=== PATIENT | male | born 1935 | race Caucasian/White ===

== ENCOUNTER → 2016-08-12 | Outpatient (REF) | payer MEDICARE, OTHER ==
[~2016-08-12] MED LIST: /ATOR40TA OR; ACET500C PO; ACET65TA OR; ASPI81TA45 PO; ASPI81TA83 OR; ASPI81TAEC PO; ATOR40TA75 PO; BISA10SU2 RE; CLOB-24 EX; COLA100C2 OR; DICL500C OR; DOXY-278 PO; DOXY100C PO; FLUT1SPR2; FURO40TA2 OR; LASI40TA PO; LEVA750T7 PO; LIPI20TA PO; LIPI80TA PO; LISI2.5T OR; LISI2.5T PO; MAALSUS OR; MAALSUS PO; MAGN500T2 PO; MILKSUS OR; MOME50SP; MULTIVIT OR; MULTIVIT PO; Magnesium Oxide OR; NASONEX; PLAV1TAB2 PO; PLAV75TA2 OR; PLAV75TA2 PO; PROT1TAB2 PO; SLOWTAB2 PO; TOPR50TA OR; TOPR50TA PO; TUMS500C PO; TYLE650T35 PO; VITMTA PO; ZYRT1TAB PO; [UNRECOGNIZED DRUG - CODE] EX; [UNRECOGNIZED DRUG - CODE] TOP
[2016-08-12 18:36] LABS: ALBUMIN 3.3 GM/DL (3.2-5.2); ALBUMIN/GLOBULIN RATIO 1.06 (1.00-1.93); BILIRUBIN,TOTAL 0.5 MG/DL (0.2-1.0); CALCIUM LEVEL 8.2 MG/DL (8.8-10.2); CREATININE FOR GFR 1.26 MG/DL (0.70-1.30); GLOMERULAR FILTRATION RATE 58.5 (>35); MAGNESIUM LEVEL 2.1 MG/DL (1.8-2.4); POTASSIUM SERUM 4.3 MEQ/L (3.5-5.1); TOTAL PROTEIN 6.4 GM/DL (6.4-8.2)
== END ==
LOC: M SFHCPLAZ 08-11 15:26 → M SFHCCLAY 13:00
PROVIDERS: ATTEND Internal Medicine
DX: N18.3 Chronic kidney disease, stage 3 (moderate) (principal); E78.00 Pure hypercholesterolemia, unspecified
CPT/HCPCS: 80053; 80061; 83735; G0463

== ENCOUNTER → 2017-01-21 | Outpatient (CLI) | payer MEDICARE, OTHER ==
[2017-01-21 14:02] LABS: BASO # 0.1 10^3/uL (0.0-0.2); BASO % 0.9 % (0.0-1.0); EOS # 0.2 10^3/uL (0.0-0.50); EOS % 3.9 % (0.0-3.0); IMMATURE GRANULOCYTE % 0.2 % (0-0); LYMPH # 0.8 10^3/uL (1.5-4.5); LYMPH % 13.6 % (24.0-44.0); MEAN CORPUSCULAR HEMOGLOBIN 28.3 pg (27.0-33.0); MEAN CORPUSCULAR HGB CONC 31.5 g/dl (32.0-36.5); MEAN CORPUSCULAR VOLUME 89.9 fl (80.0-96.0); MONO # 0.7 10^3/uL (0.0-0.8); MONO % 12.5 % (0.0-5.0); NEUTROPHILS % 68.9 % (36.0-66.0); PLATELET COUNT, AUTOMATED 194 10^3/uL (150-450); RED CELL DISTRIBUTION WIDTH 15.2 % (11.5-14.5); WHITE BLOOD COUNT 5.8 10^3/uL (4.0-10.0)
[2017-01-21 14:25] LABS: ALBUMIN 3.4 GM/DL (3.2-5.2); ALKALINE PHOSPHATASE 199 U/L (45-117); ALT/SGPT 22 U/L (12-78); ANION GAP 5 MEQ/L (8-16); AST/SGOT 14 U/L (7-37); BILIRUBIN,TOTAL 0.6 MG/DL (0.2-1.0); BLOOD UREA NITROGEN 18 MG/DL (7-18); CALCIUM LEVEL 8.7 MG/DL (8.8-10.2); CARBON DIOXIDE LEVEL 32 MEQ/L (21-32); CHLORIDE LEVEL 105 MEQ/L (98-107); CREATININE FOR GFR 1.22 MG/DL (0.70-1.30); GLOMERULAR FILTRATION RATE > 60.0 (>35); GLUCOSE, FASTING 84 MG/DL (83-110); POTASSIUM SERUM 4.4 MEQ/L (3.5-5.1); SODIUM LEVEL 142 MEQ/L (136-145); TOTAL PROTEIN 6.8 GM/DL (6.4-8.2)
== END ==
LOC: M LAB 13:16
PROVIDERS: ATTEND Surgery Vascular Surgery
DX: I71.4 Abdominal aortic aneurysm, without rupture (principal)

== ENCOUNTER → 2017-02-04 | Outpatient (REF) | payer MEDICARE, OTHER | LOC: M SFHCPLAZ 07:22 → M LABDRAWC 07:25 | PROVIDERS: ATTEND Nurse Practitioner Adult Health | DX: R21 Rash and other nonspecific skin eruption (principal) ==

== ENCOUNTER → 2017-03-30 | Outpatient (REF) | payer MEDICARE, OTHER ==
[2017-03-30 17:17] LABS: BLOOD UREA NITROGEN 25 MG/DL (7-18)
[2017-03-30 17:17] LABS: CREATININE FOR GFR 1.54 MG/DL (0.70-1.30); GLOMERULAR FILTRATION RATE 46.3 (>35)
== END ==
LOC: M LABDRAWC 11:48
DX: I71.4 Abdominal aortic aneurysm, without rupture (principal)
CPT/HCPCS: 82565

== ENCOUNTER → 2017-04-01 | Outpatient (CLI) | payer MEDICARE, OTHER ==
[~2017-04-01] MED LIST changes: -/ATOR40TA OR; -ACET500C PO; -ACET65TA OR; -ASPI81TA45 PO; -ASPI81TA83 OR; -ASPI81TAEC PO; -ATOR40TA75 PO; -BISA10SU2 RE; -CLOB-24 EX; -COLA100C2 OR; -DICL500C OR; -DOXY-278 PO; -DOXY100C PO; -FLUT1SPR2; -FURO40TA2 OR; +ISOVUE-370 76% 100ML VIAL (Q9967) As Ordered; -LASI40TA PO; -LEVA750T7 PO; -LIPI20TA PO; -LIPI80TA PO; -LISI2.5T OR; -LISI2.5T PO; -MAALSUS OR; -MAALSUS PO; -MAGN500T2 PO; -MILKSUS OR; -MOME50SP; -MULTIVIT OR; -MULTIVIT PO; -Magnesium Oxide OR; -NASONEX; -PLAV1TAB2 PO; -PLAV75TA2 OR; -PLAV75TA2 PO; -PROT1TAB2 PO; -SLOWTAB2 PO; -TOPR50TA OR; -TOPR50TA PO; -TUMS500C PO; -TYLE650T35 PO; -VITMTA PO; -ZYRT1TAB PO; -[UNRECOGNIZED DRUG - CODE] EX; -[UNRECOGNIZED DRUG - CODE] TOP
== END ==
LOC: M RAD 11:04
DX: I72.4 Aneurysm of artery of lower extremity (principal)
CPT/HCPCS: Q9967

== ENCOUNTER → 2017-04-15 | Outpatient (CLI) | payer MEDICARE, OTHER ==
[2017-04-15 10:39] LABS: BASO % 0.8 % (0.0-1.0); EOS # 0.1 10^3/uL (0.0-0.50); EOS % 2.5 % (0.0-3.0); HEMATOCRIT 37.6 % (42.0-52.0); HEMOGLOBIN 12.2 g/dl (14.0-18.0); IMMATURE GRANULOCYTE % 0.2 % (0-3.0); LYMPH # 0.9 10^3/uL (1.5-4.5); MEAN CORPUSCULAR HEMOGLOBIN 29.2 pg (27.0-33.0); MEAN CORPUSCULAR HGB CONC 32.4 g/dl (32.0-36.5); MONO # 0.6 10^3/uL (0.0-0.8); NEUTROPHILS # 3.2 10^3/uL (1.8-7.7); NEUTROPHILS % 65.5 % (36.0-66.0); PLATELET COUNT, AUTOMATED 150 10^3/uL (150-450); RED BLOOD COUNT 4.18 10^6/uL (4.30-6.10); RED CELL DISTRIBUTION WIDTH 15.9 % (11.5-14.5); WHITE BLOOD COUNT 4.8 10^3/uL (4.0-10.0)
[2017-04-15 11:08] LABS: ANION GAP 5 MEQ/L (8-16); BLOOD UREA NITROGEN 21 MG/DL (7-18); CALCIUM LEVEL 8.4 MG/DL (8.8-10.2); CARBON DIOXIDE LEVEL 31 MEQ/L (21-32); CHLORIDE LEVEL 107 MEQ/L (98-107); CREATININE FOR GFR 1.41 MG/DL (0.70-1.30); GLOMERULAR FILTRATION RATE 51.2 (>35); GLUCOSE, FASTING 92 MG/DL (70-100); POTASSIUM SERUM 4.4 MEQ/L (3.5-5.1); SODIUM LEVEL 143 MEQ/L (136-145)
== END ==
LOC: M LAB 09:59
DX: I71.4 Abdominal aortic aneurysm, without rupture (principal)
CPT/HCPCS: 80048

== ENCOUNTER → 2017-11-03 | Outpatient (REF) | payer MEDICARE, OTHER ==
[2017-11-03 18:01] LABS: ALBUMIN 3.8 GM/DL (3.2-5.2); ALKALINE PHOSPHATASE 182 U/L (45-117); ALT/SGPT 26 U/L (12-78); ANION GAP 7 MEQ/L (8-16); AST/SGOT 20 U/L (7-37); BILIRUBIN,TOTAL 0.4 MG/DL (0.2-1.0); BLOOD UREA NITROGEN 24 MG/DL (7-18); CALCIUM LEVEL 8.6 MG/DL (8.8-10.2); CARBON DIOXIDE LEVEL 30 MEQ/L (21-32); CHLORIDE LEVEL 107 MEQ/L (98-107); CHOLESTEROL LEVEL 157 MG/DL (<200); CHOLESTEROL RISK RATIO 4.025 (<5); CREATININE FOR GFR 1.49 MG/DL (0.70-1.30); GLOMERULAR FILTRATION RATE 47.9 (>35); GLUCOSE, FASTING 66 MG/DL (70-100); HDL CHOLESTEROL 39 MG/DL (>40); LDL CHOLESTEROL 93 MG/DL (<100); MAGNESIUM LEVEL 2.2 MG/DL (1.8-2.4); NON-HDL-C 118 MG/DL; POTASSIUM SERUM 4.6 MEQ/L (3.5-5.1); SODIUM LEVEL 144 MEQ/L (136-145); TOTAL PROTEIN 7.4 GM/DL (6.4-8.2); TRIGLYCERIDES LEVEL 125 MG/DL (<150)
[2017-11-03 20:01] LABS: ALBUMIN/GLOBULIN RATIO 1.06 (1.00-1.93)
== END ==
LOC: M SFHCPLAZ 12:26
DX: N18.3 Chronic kidney disease, stage 3 (moderate) (principal); I25.10 Atherosclerotic heart disease of native coronary artery without angina pectoris
CPT/HCPCS: 83735

== ENCOUNTER → 2018-04-30 | Outpatient (REF) | payer MEDICARE, OTHER ==
[~2018-04-30] MED LIST changes: +/ATOR40TA OR; +ACET500C PO; +ACET65TA OR; +ASPI81TA45 PO; +ASPI81TA83 OR; +ASPI81TAEC PO; +ATOR40TA75 PO; +BISA10SU2 RE; +CLOB-24 EX; +COLA100C2 OR; +DICL500C OR; +DOXY-350 PO; +DOXY100C PO; +FLUT1SPR2; +FURO40TA2 OR; -ISOVUE-370 76% 100ML VIAL (Q9967) As Ordered; +LASI40TA PO; +LASI40TA9 PO; +LEVA750T7 PO; +LIPI20TA PO; +LIPI80TA PO; +LISI2.5T OR; +LISI2.5T PO; +MAALSUS OR; +MAALSUS PO; +MAGN500T2 PO; +MILKSUS OR; +MOME50SP; +MULTIVIT OR; +MULTIVIT PO; +Magnesium Oxide OR; +NASONEX; +PLAV1TAB2 PO; +PLAV75TA2 OR; +PLAV75TA2 PO; +PROT1TAB2 PO; +SLOWTAB2 PO; +TOPR50TA OR; +TOPR50TA PO; +TUMS500C PO; +TYLE650T35 PO; +VITMTA PO; +ZYRT1TAB PO; +[UNRECOGNIZED DRUG - CODE] EX; +[UNRECOGNIZED DRUG - CODE] TOP
[2018-04-30 17:02] LABS: ALBUMIN 3.7 GM/DL (3.2-5.2); BILIRUBIN,TOTAL 0.8 MG/DL (0.2-1.0); CALCIUM LEVEL 8.6 MG/DL (8.8-10.2); CREATININE FOR GFR 1.57 MG/DL (0.70-1.30); GLOMERULAR FILTRATION RATE 45.1 (>35)
[2018-04-30 17:13] LABS: HEMOGLOBIN A1c 5.9 %; TOTAL 25(OH) VITAMIN D 30.7 NG/ML (30.0-100.0)
== END ==
LOC: M SFHCCLAY 11:41
PROVIDERS: ATTEND Internal Medicine
DX: N18.3 Chronic kidney disease, stage 3 (moderate) (principal); R73.01 Impaired fasting glucose

== ENCOUNTER → 2018-07-02 | Outpatient (REF) | payer MEDICARE, OTHER ==
[~2018-07-02] MED LIST changes: -/ATOR40TA OR; +CICL1SHA2 TOP; +LIPI1TAB2 OR; +METO-743 OR; +METO-743 PO; -TOPR50TA OR; -TOPR50TA PO; -[UNRECOGNIZED DRUG - CODE] TOP
[2018-07-02 17:10] LABS: BASO % 0.7 % (0.0-1.0); EOS # 0.3 10^3/uL (0.0-0.50); EOS % 4.2 % (0.0-3.0); HEMATOCRIT 42.8 % (42.0-52.0); HEMOGLOBIN 13.1 g/dl (13.5-17.5); LYMPH % 17.3 % (24.0-44.0); MEAN CORPUSCULAR HEMOGLOBIN 28.9 pg (27.0-33.0); MEAN CORPUSCULAR HGB CONC 30.6 g/dl (32.0-36.5); MEAN CORPUSCULAR VOLUME 94.5 fl (80.0-96.0); MONO # 0.7 10^3/uL (0.0-0.8); MONO % 12.1 % (0.0-5.0); NEUTROPHILS # 3.9 10^3/uL (1.8-7.7); NEUTROPHILS % 65.4 % (36.0-66.0); PLATELET COUNT, AUTOMATED 168 10^3/uL (150-450); RED BLOOD COUNT 4.53 10^6/uL (4.30-6.10)
== END ==
LOC: M LABDRAWC 16:23
PROVIDERS: ATTEND Internal Medicine Cardiovascular Disease
DX: I48.2 Chronic atrial fibrillation (principal)

== ENCOUNTER → 2018-07-07 | Outpatient (REF) | payer MEDICARE, OTHER | LOC: M LAB REF 11:29 | PROVIDERS: ATTEND Internal Medicine Cardiovascular Disease | DX: I48.2 Chronic atrial fibrillation (principal) ==

== ENCOUNTER → 2018-11-08 | Outpatient (REF) | payer MEDICARE, OTHER ==
[2018-11-08 13:27] LABS: ALBUMIN 3.6 GM/DL (3.2-5.2); CALCIUM LEVEL 8.7 MG/DL (8.8-10.2); CHOLESTEROL RISK RATIO 4.361 (<5); CREATININE FOR GFR 1.59 MG/DL (0.70-1.30); GLOMERULAR FILTRATION RATE 44.4 (>35); POTASSIUM SERUM 4.1 MEQ/L (3.5-5.1); PTH INTACT 140.8 PG/ML (18.5-88.0); THYROID STIMULATING HORMONE 2.93 uIU/ML (0.358-3.740); TOTAL PROTEIN 6.7 GM/DL (6.4-8.2)
== END ==
LOC: M SFHCPLAZ 10:56
PROVIDERS: ATTEND Internal Medicine
DX: N18.3 Chronic kidney disease, stage 3 (moderate) (principal); E78.00 Pure hypercholesterolemia, unspecified; G47.30 Sleep apnea, unspecified
CPT/HCPCS: 36415; 80053; 80061; 83970; 84443; G0463

== ENCOUNTER 2018-12-19 06:31 | Inpatient (IN) | payer MEDICARE, OTHER ==
[~2018-12-19] VITALS: Ht 182.9 cm; Wt 122.2 kg
[2018-12-19 07:11] LABS: BASO % 0.3 % (0.0-1.0); EOS # 0.1 10^3/uL (0.0-0.5); EOS % 0.7 % (0.0-3.0); HEMATOCRIT 41.7 % (42.0-52.0); HEMOGLOBIN 13.5 g/dl (13.5-17.5); LYMPH # 0.6 10^3/uL (1.5-5.0); LYMPH % 4.4 % (24.0-44.0); MEAN CORPUSCULAR HEMOGLOBIN 30.5 pg (27.0-33.0); MEAN CORPUSCULAR HGB CONC 32.4 g/dl (32.0-36.5); MEAN CORPUSCULAR VOLUME 94.1 fl (80.0-96.0); MONO # 0.9 10^3/uL (0.0-0.8); MONO % 6.9 % (0.0-5.0); NEUTROPHILS # 11.7 10^3/uL (1.5-8.5); NEUTROPHILS % 87.3 % (36.0-66.0); PLATELET COUNT, AUTOMATED 179 10^3/uL (150-450); RED BLOOD COUNT 4.43 10^6/uL (4.30-6.10); WHITE BLOOD COUNT 13.4 10^3/uL (4.0-10.0)
[2018-12-19] MEDS ORDERED: ELIQ2.5T PO (07:14)
[2018-12-19] MEDS ORDERED: SM LTAB5 PO (07:14)
[2018-12-19 07:32] LABS: VENOUS BASE EXCESS 1.3 (-2.0-2.0); VENOUS HCO3 26.7 MEQ/L (23.0-27.0); VENOUS O2 SATURATION 59.8 % (60.0-80.0); VENOUS PARTIAL PRESSURE O2 31.9 mmHg (30.0-50.0); VENOUS PH 7.391 UNITS (7.330-7.430); VENOUS STANDARD HCO3 24.8 MEQ/L; VENOUS TOTAL CO2 28.1 MEQ/L (24.0-28.0)
[2018-12-19] MEDS: NS 1,000 ML IV SCH ×2 (07:35→21:25)
[2018-12-19 07:42] LABS: ALBUMIN 3.5 GM/DL (3.2-5.2); BILIRUBIN,DIRECT 0.2 MG/DL (0.0-0.2); BILIRUBIN,TOTAL 1.2 MG/DL (0.2-1.0); CALCIUM LEVEL 9.1 MG/DL (8.8-10.2); CK-MB VALUE MASS 1.1 NG/ML (<3.6); CREATININE FOR GFR 1.65 MG/DL (0.70-1.30); GLOMERULAR FILTRATION RATE 42.5 (>35); MB/CK RELATIVE INDEX 1.31 (< OR =4); POTASSIUM SERUM 4.5 MEQ/L (3.5-5.1); THYROID STIMULATING HORMONE 2.12 uIU/ML (0.358-3.740); TOTAL PROTEIN 7.8 GM/DL (6.4-8.2); TROPONIN I 0.03 NG/ML (< 0.10)
--- NOTE | 2018-12-19 07:51 | REPVR ---
PROCEDURE INFORMATION: Exam: CT Head Without Contrast Exam date and time: 12/19/2018 7:27 AM Clinical history: 83 years old, male; Altered mental status/memory loss; Confusion or disorientation TECHNIQUE: Imaging protocol: Computed tomography of the head without contrast. Radiation optimization: All CT scans at this facility use at least one of these dose optimization techniques: automated exposure control; mA and/or kV adjustment per patient size (includes targeted exams where dose is matched to clinical indication); or iterative reconstruction. 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 There is low attenuation abnormality in the periventricular white matter, likely reflecting chronic microvascular ischemic disease. Ventricles: Normal. No ventriculomegaly. Bones/joints: Unremarkable. No acute fracture. Sinuses: There is mild sinus disease. Mastoid air cells: Visualized mastoid air cells are well aerated. Soft tissues: Unremarkable. Vasculature: There is moderate intracranial vascular calcification. IMPRESSION: 1. 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 2. There is low attenuation abnormality in the periventricular white matter, likely reflecting chronic microvascular ischemic disease. If an acute infarct is clinically suspected, consider MRI with diffusion imaging. Electronically signed by: Missael Edgar On 12/19/2018 07:50:41 AM
[2018-12-19] MEDS ORDERED: ACETAMINOPHEN 325 MG TAB PO ONE (08:00)
[2018-12-19] MEDS ORDERED: PIPERACILLIN/TAZOBACTAM SOD 4.5 GM in D5W MINI-BAG PLUS 50 ML IV ONE (08:00)
[2018-12-19] MEDS ORDERED: LORA10TA3 PO (08:55)
[2018-12-19] MEDS ORDERED: KEYT1INJ IV (08:55)
[2018-12-19] MEDS ORDERED: FLUTISP NARES (08:55)
[2018-12-19] MEDS ORDERED: BANO25TA PO (08:55)
[2018-12-19] MEDS ORDERED: CALC1CAP31 PO (08:55)
[2018-12-19] MEDS ORDERED: COLA1TAB PO (08:55)
[2018-12-19] MEDS: CALCITRIOL 0.25 MCG CAP (S0169) PO SCH (09:00)
[2018-12-19] MEDS: LORATADINE 10 MG TAB PO SCH (09:00)
[2018-12-19] MEDS: APIXABAN 2.5 MG TAB (ELIQUIS) PO SCH ×2 (09:00→21:25)
[2018-12-19] MEDS: MULTIVITAMINS/MINERALS THERAP 1 TAB PO SCH (09:00)
[2018-12-19] MEDS: PANTOPRAZOLE 40MG TAB (PROTONIX) PO SCH (09:00)
--- NOTE | 2018-12-19 09:46 | REP ---
CHEST, PORTABLE: AP portable view of the chest is performed. COMPARISON: 01/30/2016 Heart is upper limits of normal in size. There is mild elevation of the right hemidiaphragm again noted. No infiltrate is seen bilaterally. There is tortuosity of the thoracic aorta again seen. Multiple sternal wires and mediastinal clips are present. There is a right central venous catheter with the tip at the junction of the superior vena cava and right atrium. Left dual-lead pacemaker is again noted. IMPRESSION: No acute infiltrate. Electronically Signed by Rajesh Grimm MD 12/19/2018 12:27 P
[2018-12-19] MEDS ORDERED: NS IV ONE (10:00)
[2018-12-19] MEDS ORDERED: ACETAMINOPHEN TAB 650MG DOSE (2X325MG) PO PRN (10:30)
[2018-12-19] MEDS ORDERED: VANCOMYCIN HCL 1,000 MG, VIAL MATE ADAPTER 1 EACH in D5W 250 ML IV ONE (11:30)
[2018-12-19 11:40] VITALS: BP 124/58
--- NOTE | 2018-12-19 11:40 | REP ---
CT CHEST WITHOUT IV CONTRAST: CT chest performed without IV contrast. Sagittal and coronal reconstruction images are performed. Both lungs show scattered fibrotic changes. Compared to the prior CT of 11/02/2015, there is some added very mild patchy density in the posterior costophrenic sulcus in the right lower lobe compatible with mild atelectasis or infiltrate. No other new parenchymal opacities are seen. No gross adenopathy is seen in the mediastinum or in the axillary regions. There is no pleural or pericardial effusion. Heart is not enlarged. Thoracic aorta demonstrates mild atherosclerotic calcification without aneurysm. There are degenerative changes of the spine. IMPRESSION: Small area of atelectasis or infiltrate posterior right lower lobe in the costophrenic sulcus. No other acute abnormalities. Electronically Signed by Rajesh Grimm MD 12/19/2018 12:36 P
--- NOTE | 2018-12-19 11:48 | REP ---
CT ABDOMEN/PELVIS WITHOUT CONTRAST: CT abdomen/pelvis performed without oral or IV contrast. Sagittal and coronal reconstruction images are performed. The liver is grossly unremarkable. A few subcentimeter gallstones are seen in the dependent portion of the gallbladder without gallbladder wall thickening or edema. There is no definite biliary dilatation. Spleen is grossly unremarkable. Adrenal glands demonstrate no mass. Pancreas is predominantly fatty replaced. There may be some mild peripancreatic inflammatory stranding, although this may be artifactual in nature. I cannot exclude mild pancreatitis. Kidneys demonstrate no hydronephrosis. There appear to be a few small cysts bilaterally. There is atherosclerotic calcification of the abdominal aorta. There is no aneurysm of the abdominal aorta, but the left common iliac artery is dilated up to 3.4 cm. The right common iliac artery is ectatic 2.7 cm maximum diameter. There is no adenopathy, free air, free fluid, or fluid collection. No bowel wall thickening is seen. The appendix is normal. There is a small umbilical hernia containing noninflamed small bowel loop. No pelvic mass is seen. Urinary bladder is mildly distended and grossly unremarkable. There are degenerative changes of the spine. There is also as small midline ventral hernia in the superior abdominal wall containing noninflamed fat. IMPRESSION: Few small gallstones in the gallbladder without gallbladder wall thickening or edema, and no evidence of biliary dilatation. No free air or free fluid. Possible mild peripancreatic inflammatory change versus artifact, I cannot exclude mild pancreatitis. No pseudocyst. Small umbilical hernia contains noninflamed small bowel loop. Electronically Signed by Rajesh Grimm MD 12/19/2018 12:37 P
[2018-12-19] MEDS ORDERED: FLUTICASONE PROP 0.05% NASAL SPRAY 16 GM (FLONASE) NARES PRN (12:00)
[2018-12-19] MEDS ORDERED: SENOKOT S TAB PO PRN (12:00)
[2018-12-19] MEDS ORDERED: HEPARIN SOD (PORCINE) 5000 UNITS/ML VIAL SC SCH (14:00)
[2018-12-19] MEDS: PIPERACILLIN/TAZOBACTAM SOD 3.375 GM in D5W MINI-BAG PLUS 50 ML IV SCH ×2 (14:06→21:26)
--- NOTE | 2018-12-19 14:34 | HPEPDOC ---
General Date of Admission Dec 19, 2018 at 10:27 Date of Service: Dec 19, 2018 Chief Complaint The patient is a 83-year-old male Who presented to the emergency room with complaints of confusion. 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 Patient is a poor historian and his is currently not present at bedside. However, based on the ER staff has been brought in because of confusion at home. As been ongoing for a few days. Upon arrival to emergency room, patient was found to have a fever. Imaging studies as well as urinalysis was completed that did not reveal any signs of infection. Hospitalist service was called for further evaluation. Currently patient reports that he does not experience any headache, nausea, vomiting, chest pain, shortness of breath or palpitations. He does report a cough, however, it has been nonproductive without any sputum production. He denies any abdominal pain, constipation, diarrhea, or urinary discomfort. Patient reports that his last bowel movement was this morning. Over last 2 weeks he has not reported any fevers or chills. Of note, patient has received K chewed up on 12/08/2018 for his suspected skin malignancy. Patient reports that his weight has been relatively consistent and has not had any change in his appetite. Home Medications Scheduled Apixaban (Eliquis) 2.5 Mg Tablet, 2.5 MG PO BID, (Reported) Aspirin (Aspirin EC) 81 Mg Tabec, 81 MG PO QHS, (Reported) Atorvastatin Calcium (Atorvastatin Calcium) 40 Mg Tab, 40 MG PO QHS, (Reported) Calcitriol (Calcitriol) 0.25 Mcg Capsule, 0.5 MCG PO DAILY, (Reported) Furosemide (Lasix) 40 Mg Tab, 40 MG PO DAILY, (Reported) Loratadine (Loratadine) 10 Mg Tablet, 10 MG PO DAILY, (Reported) Magnesium Chloride (Slow-Mag) 1 Tab Tab, 1 TAB PO QHS, (Reported) Multivitamins (Thera M Plus Tablet) 1 Tab Tab, 1 TAB PO DAILY, (Reported) Pantoprazole Sodium (Protonix) 40 Mg Tab, 40 MG PO DAILY, (Reported) Pembrolizumab (Keytruda) 100 Mg/4 Ml Vial, 100 MG IV 3 WEEK CYCLE, (Reported) NEXT DOSE Dec Scheduled PRN Diphenhydramine HCl (Banophen) 25 Mg Tablet, 25 MG PO DAILY PRN for ALLERGY SYMPTOMS, (Reported) Fluticasone Propionate (Fluticasone Propionate) 16 Gm [place].susp, 1 SPRAY NARES BID PRN for CONGESTION, (Reported) Sennosides/Docusate Sodium (Colace 2-in-1 Tablet) 1 Each Tablet, 2 TAB PO QHS PRN for CONSTIPATION, (Reported) TAKEN IF NO B.M. 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, PVD, DLP, CKD3, Stasis dermatitis and GERD Surgical History CABG Multiple excisions of Skin Cancer AAA repair 2000 Bilateral Cataract Surgery 2012 Colonoscopy with polyp resection 2013 Pacemaker 02/2014 Family History - Mother with history of colon cancer and abdominal aortic aneurysm - Father with a history of heart disease Social History - Denies the use of alcohol, tobacco or illicit drugs - Denies recent travel or sick contacts - Lives with in [facility] - Occupation; patient used to work as a [employer] Review of Systems Other systems 10 point review of systems complete, all negative otherwise stated in HPI Vital Signs - Vitals: BP 124/58, HR 60, RR 24, Sat 96%RA, Temp 98.2F - General: Lying in bed, No acute distress, Speaking in full sentences, Awake / Alert, Oriented to Person / Place and Time - HEENT: NC, AT, PERRLA, EOMI - CVS: RRR, +S1S2 - Lungs: Fair air entry bilaterally, No appreciable wheezing / rales / rhonchi - Abdomen: Soft, Non-distended, Non-tender - Extremities: 2+ pitting edema bilaterally, No calf tenderness - Neuro: Mild weakness noted on L upper / lower extremity - however not reported as new, Negative Kernig and Brudzinski signs - Skin: No visible rashes Laboratory Data Labs 24H Laboratory Tests 2 12/19/18 06:46: Immature Granulocyte % (Auto) 0.4, Neutrophils (%) (Auto) 87.3H, Lymphocytes (%) (Auto) 4.4L, Monocytes (%) (Auto) 6.9H, Eosinophils (%) (Auto) 0.7, Basophils (%) (Auto) 0.3, Neutrophils # (Auto) 11.7H, Lymphocytes # (Auto) 0.6L, Monocytes # (Auto) 0.9H, Eosinophils # (Auto) 0.1, Basophils # (Auto) 0.0, Nucleated Red Blood Cells % (auto) 0.0, Anion Gap 4L, Glomerular Filtration Rate 42.5, Osmolality 297, Lactic Acid Level 1.6, Calcium Level 9.1, Total Bilirubin 1.2H, Direct Bilirubin 0.2, Aspartate Amino Transf (AST/SGOT) 35, Alanine Aminotransferase (ALT/SGPT) 42, Alkaline Phosphatase 213H, Ammonia 30, Total Creatine Kinase 84, Creatine Kinase MB 1.1, Creatine Kinase MB Relative Index 1.31, Troponin I 0.03, Total Protein 7.8, Albumin 3.5, Albumin/Globulin Ratio 0.81L, Amylase Level 38, Lipase 81, Thyroid Stimulating Hormone (TSH) 2.120 12/19/18 07:24: Blood Gas Bicarbonate Standard 24.8, Venous Blood pH 7.391, Venous Blood Partial Pressure CO2 45.0, Venous Blood Partial Pressure O2 31.9, Venous Blood Total Carbon Dioxide 28.1H, Venous Blood HCO3 26.7, Venous Blood Oxygen Saturation 59.8L, Venous Blood Base Excess 1.3 12/19/18 08:31: Urine Color YELLOW, Urine Appearance CLEAR, Urine pH 5.0, Urine Specific [place] 1.019, Urine Protein NEGATIVE, Urine Glucose (UA) NEGATIVE, Urine Ketones NEGATIVE, Urine Blood 2+H, Urine Nitrite NEGATIVE, Urine Bilirubin NEGATIVE, Urine Urobilinogen 0.2, Urine Leukocyte Esterase 2+H, Urine WBC (Auto) 3, Urine RBC (Auto) 5H, Urine Hyaline Casts (Auto) 0, Urine Bacteria (Auto) NEGATIVE, Urine Squamous Epithelial Cells 0, Urine Mucus (Auto) SMALL, Urine Sperm (Auto) CBC/BMP Laboratory Tests 12/19/18 06:46 Microbiology Microbiology 12/19/18 Urine Culture, Received Pending 12/19/18 Respiratory Virus Panel (PCR) ([facility]) - Final, Complete 12/19/18 Blood Culture, Received Pending 12/19/18 Blood Culture, Received Pending Plan / VTE VTE Prophylaxis Ordered?: Yes Plan Plan Confusion / Acute metabolic encephalopathy - possibly 2/2 infection, less likely 2/2 CVA - Presented to the emergency room after having confusion at home - Patient remains oriented to person; he is aware that he is in the hospital. However, he does not aware of the current severe state, and only information he knows about the date is the year - CT head 12/19: 1. 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 2. There is low attenuation abnormality in the periventricular white matter, likely reflecting chronic microvascular ischemic disease. If an acute infarct is clinically s uspected, consider MRI with diffusion imaging. - Will Fever / Leukocytosis - likely 2/2 pneumonia, coverage for gram negative and MRSA infection - Currently, patient reports that he is having a nonproductive cough. However, he denies any shortness of breath - No headache, Negative Kernig and Brudzinski signs - Leukocytosis with neutrophil predominance - CXR 12/19: No acute infiltrate. - CT chest 12/19: Small area of atelectasis or infiltrate posterior right lower lobe in the costophrenic sulcus. No other acute abnormalities. - CT abdomen/ pelvis 12/19: Few small gallstones in the gallbladder without gallbladder wall thickening or edema, and no evidence of biliary dilatation. No free air or free fluid. Possible mild peripancreatic inflammatory change versus artifact, I cannot exclude mild pancreatitis. No pseudocyst. Small umbilical hernia contains noninflamed small bowel loop. - Will check blood cultures, sputum cultures, legionella / strep pneumonia antigen - Will c/w Zosyn and Vancomcyin Suspected skin malignancy - Possibly 2/2 Melanoma - Patient has reported that he is on chemotherapy; Has received Keytruda on 12/08/2018 - Follows with Oncology as an outpatient CAD s/p CABG Atrial fibrillation - Currently appears rate controlled - Patient has a PM; however unclear as to why it was placed - c/w full anticoagulation with Eliquis HTN - BP was hypotensive in the ER - Has improved with IV fluid hydration - Will hold Furosemide for now CHF? 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
[2018-12-19] MEDS ORDERED: VANCOMYCIN HCL 750 MG, VIAL MATE ADAPTER 1 EACH in D5W 250 ML IV ONE (15:00)
[2018-12-19 16:00] VITALS: BP 140/62
--- NOTE | 2018-12-19 17:01 | PHACANCOPD ---
PHARMACY VANCOMYCIN DOSING Pt Demographics Demographics Patient Age:83 , Weight:119.300 , Gender: male Adjusted Body Weight Date: 12/19/18, Adjusted Body Weight: Kg Events Past 24 Hours Events Past 24 Hours: YES: Elevation in WBC; NO: Dialysis, Diuretic Therapy, Change in CrCl, Fever, Pending Diagnostics, Pending Procedures, Other Vancomycin Vancomycin indication: MRSA coverage Vancomycin Target Ranges: 15-20 mcg/ml Vancomycin Load Y/N: Yes Load Dose Date Time Vancomycin Load Dose: 1750mg Date: 12/19 Time: ~13:00 Vancomycin Dose Date: 12/19/18. Current Vancomycin Dose: [1.75g IV q24h @09] Intermittent Dosing?: No Labs Labs Item Value Date Time White Blood Count 13.4 10^3/uL H 12/19/18 0646 Creatinine 1.65 MG/DL H 12/19/18 0646 Micro Microbiology 12/19/18 Urine Culture, Received Pending 12/19/18 Respiratory Virus Panel (PCR) ([facility]) - Final, Complete 12/19/18 Blood Culture, Received Pending 12/19/18 Blood Culture, Received Pending Creatinine Clearance Date:12/19/18. Creatinine Clearance: [~40 ml/min]. Pending Labs Vancomycin trough scheduled 12/21 @08:00 Assessment and Plan Maintaining Current Dose?: Yes Reason for dose change: No Dose Change Pharmacist Note Pharmacist Note Date: 12/19/18. Pharmacist note: pt has been started on Vancomycin and Zosyn for possible cellulitis secondary to melanoma. Based on prior consults, I have started the pt on Vancomycin 1.75g this afternoon, followed by 1.75g IV q24h to begin ~21 hours later. I have a trough scheduled the morning before the 3rd dose. Cultures are pending. We will continue to monitor and make adjustments as necessary. Jerel Pantoja Pharm.D. Dec 19, 2018 17:01
[2018-12-19 20:00] VITALS: BP 138/68
[2018-12-19] MEDS: IPRATROPIUM 0.5MG/ALBUTEROL 2.5MG INH SOL UD 3ML (DUONEB)(J7620) NEB PRN (21:24)
[2018-12-19] MEDS: ASPIRIN 81 MG ENTERIC TAB PO SCH (21:25)
[2018-12-19] MEDS: ATORVASTATIN 20 MG TAB PO SCH (21:25)
[2018-12-19 22:00] VITALS: BP 144/74
[2018-12-20] VITALS (10 sets, daily range): BP systolic 100–138; BP diastolic 55–80; O2SAT 97
[2018-12-20] MEDS: NS 1,000 ML IV SCH ×2 (02:07→14:49)
[2018-12-20] MEDS: PIPERACILLIN/TAZOBACTAM SOD 3.375 GM in D5W MINI-BAG PLUS 50 ML IV SCH ×2 (02:07→08:51)
[2018-12-20] MEDS: IPRATROPIUM 0.5MG/ALBUTEROL 2.5MG INH SOL UD 3ML (DUONEB)(J7620) NEB PRN ×2 (03:09→17:51)
[2018-12-20 05:29] LABS: BASO % 0.6 % (0.0-1.0); EOS # 0.2 10^3/uL (0.0-0.5); EOS % 2.2 % (0.0-3.0); HEMATOCRIT 37.4 % (42.0-52.0); HEMOGLOBIN 11.7 g/dl (13.5-17.5); LYMPH # 0.6 10^3/uL (1.5-5.0); LYMPH % 8.5 % (24.0-44.0); MEAN CORPUSCULAR HEMOGLOBIN 29.8 pg (27.0-33.0); MEAN CORPUSCULAR HGB CONC 31.3 g/dl (32.0-36.5); MEAN CORPUSCULAR VOLUME 95.2 fl (80.0-96.0); MONO # 0.7 10^3/uL (0.0-0.8); MONO % 9.8 % (0.0-5.0); NEUTROPHILS # 5.5 10^3/uL (1.5-8.5); NEUTROPHILS % 78.6 % (36.0-66.0); PLATELET COUNT, AUTOMATED 119 10^3/uL (150-450); RED BLOOD COUNT 3.93 10^6/uL (4.30-6.10); WHITE BLOOD COUNT 6.9 10^3/uL (4.0-10.0)
[2018-12-20 06:00] LABS: ALBUMIN 2.7 GM/DL (3.2-5.2); BILIRUBIN,TOTAL 1.2 MG/DL (0.2-1.0); CALCIUM LEVEL 8.1 MG/DL (8.8-10.2); CREATININE FOR GFR 1.54 MG/DL (0.70-1.30); MAGNESIUM LEVEL 1.9 MG/DL (1.8-2.4); TOTAL PROTEIN 5.9 GM/DL (6.4-8.2)
[2018-12-20] MEDS: LACTOBACILLUS ACIDOPHILUS CAP (BACID) PO SCH ×2 (08:52→21:46)
[2018-12-20] MEDS: APIXABAN 2.5 MG TAB (ELIQUIS) PO SCH ×2 (08:52→21:46)
[2018-12-20] MEDS: CALCITRIOL 0.25 MCG CAP (S0169) PO SCH (08:52)
[2018-12-20] MEDS: PANTOPRAZOLE 40MG TAB (PROTONIX) PO SCH (08:52)
[2018-12-20] MEDS: MULTIVITAMINS/MINERALS THERAP 1 TAB PO SCH (08:52)
[2018-12-20] MEDS: LORATADINE 10 MG TAB PO SCH (08:52)
[2018-12-20] MEDS ORDERED: VANCOMYCIN HCL 1,000 MG, VIAL MATE ADAPTER 1 EACH in D5W 250 ML IV SCH (09:00)
--- NOTE | 2018-12-20 09:08 | IPNPDOC ---
Date Seen The patient was seen on 12/20/18. 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 Patient was seen and examined in his room this morning, sitting up on the edge of the bed comfortably. He was working with PT at the time of evaluation. Patient denies any complaints today. He states he does continue to have a no nproductive cough. He denies any shortness of breath. He denies any dysuria or urinary urgency. He does state he has chronic urinary frequency, which may be relate to medications he takes such as furosemide. He denies any fevers, chills, night sweats, nausea, vomiting, chest pain, palpitations, abdominal pain, diarrhea. OBJECTIVE PHYSICAL EXAMINATION: VITAL SIGNS: Please see below. GENERAL: Awake, alert, comfortable, speaking in full sentences HEENT: Normocephalic, atraumatic, PERRLA, EOMI, moist mucous membranes CARDIOVASCULAR: Regular rate and rhythm, normal S1 and S2 RESPIRATORY: Equal air entry bilaterally, clear vesicular lung sounds bilaterally, no wheezing, rhonchi, rales. ABDOMINAL: Obese, soft, nontender, nondistended, bowel sounds present EXTREMITIES: 2+ pitting edema in bilateral lower extremities, no calf tenderness NEUROLOGICAL: Mild weakness in the left upper and left lower extremities compared to the right. Oriented to person, place, and year PSYCHOLOGICAL: Mood and affect appropriate LABORATORY DATA, IMAGING STUDIES, MICROBIOLOGY: Please see below. 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 However, he does not aware of the current severe state, and only information he knows about the date is the year - CT head 12/19: 1. 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 2. There is low attenuation abnormality in the periventricular white matter, likely reflecting chronic microvascular ischemic disease. If an acute infarct is clinically suspected, consider MRI with diffusion imaging. - Suspect this is related to infection, continue antibiotics as below # Fever / Leukocytosis - likely 2/2 pneumonia or UTI, coverage for gram negative and MRSA infection - Leukocytosis with neutrophil predominance, improved UA suggestive of possible UTI with positive leukocyte esterase and 3 WBC, urine cultures pending Blood cultures 2 negative at 24 hours, respiratory panel negative - Pending sputum cultures, legionella / strep pneumonia antigen, no imaging or physical exam evidence of pneumonia - c/w antibiotics switched to oral Bactrim for UTI coverage considering the patient's cephalosporin allergy, day #2 of 7 of antibiotics, urine culture pending # Suspected skin malignancy - Possibly 2/2 Melanoma - Patient has reported that he is on chemotherapy; Has received Keytruda on 12/08/2018 - Follows with Oncology as an outpatient # CAD s/p CABG # Atrial fibrillation - Currently appears rate controlled, continue with telemetry monitoring - Patient has a PM; however unclear as to why it was placed - c/w full anticoagulation with Eliquis # HTN - BP was hypotensive in the ER, improved with IV fluid hydration - Continue to hold furosemide # CHF? 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 Discussed with resident and medical students and agree with resident's findings and plan as documented in the resident's note. VS, I&O, 24H, Fishbone Vital Signs/I&O Vital Signs Date Time Temp Pulse Resp B/P (MAP) Pulse Ox O2 Delivery O2 Flow Rate FiO2 12/20/18 08:00 97.6 60 22 125/63 (83) 92 Room Air I&O- Last 24 Hours up to 6 AM 12/20/18 06:00 Intake Total 3820 ml Output Total 1225 ml Balance 2595 ml Laboratory Data 24H LABS Laboratory Tests 2 12/20/18 05:13: Immature Granulocyte % (Auto) 0.3, Neutrophils (%) (Auto) 78.6H, Lymphocytes (%) (Auto) 8.5L, Monocytes (%) (Auto) 9.8H, Eosinophils (%) (Auto) 2.2, Basophils (%) (Auto) 0.6, Neutrophils # (Auto) 5.5, Lymphocytes # (Auto) 0.6L, Monocytes # (Auto) 0.7, Eosinophils # (Auto) 0.2, Basophils # (Auto) 0.0, Nucleated Red Blood Cells % (auto) 0.0, Anion Gap 5L, Glomerular Filtration Rate 46.0, Calcium Level 8.1L, Magnesium Level 1.9, Total Bilirubin 1.2H, Aspartate Amino Transf (AST/SGOT) 29, Alanine Aminotransferase (ALT/SGPT) 43, Alkaline Phosphatase 157H, Total Protein 5.9#L, Albumin 2.7#L, Albumin/Globulin Ratio 0.84L CBC/BMP Laboratory Tests 12/20/18 05:13 Microbiology Microbiology 12/19/18 Urine Culture, Received Pending 12/19/18 Respiratory Virus Panel (PCR) ([facility]) - Final, Complete 12/19/18 Blood Culture - Preliminary, Resulted No growth after 24 hours . All specim... 12/19/18 Blood Culture - Preliminary, Resulted No growth after 24 hours . All specim... CHARLY OSBORNE PGY-1 Dec 20, 2018 09:08 DIMA AHMADI MD Dec 21, 2018 08:10
[2018-12-20] MEDS ORDERED: VANCOMYCIN HCL 750 MG, VIAL MATE ADAPTER 1 EACH in D5W 250 ML IV SCH (10:00)
[2018-12-20] MEDS ORDERED: cefTRIAXone SOD 1 GM in D5W MINI-BAG PLUS 50 ML IV SCH (10:15)
[2018-12-20] MEDS: BACTRIM 160MG/800MG DS TAB PO SCH ×2 (12:33→21:46)
--- NOTE | 2018-12-20 16:13 | ECHO ---
DATE OF PROCEDURE: 12/20/2018 REFERRING PHYSICIAN: Dr. Jerica Sevilla INDICATION: Edema, unspecified. HEIGHT: 183 cm WEIGHT: 119 kg 2D MEASUREMENTS: Left ventricle diastole: 5.3 cm Ventricular septum: 1.18 cm Posterior wall: 1.17 cm Aortic root: 3.8 cm Left atrium: 5.8 cm Left atrial volume index: 50 Inferior vena cava: 2.5 cm DOPPLER MEASUREMENTS: Very mild aortic regurgitation. No aortic stenosis. Aortic valve velocity: 101 cm/s LVOT velocity: 88.7 cm/s LVOT VTI: 19.9 cm Mild mitral regurgitation. Mitral E velocity: 101 cm/s Mild tricuspid regurgitation. Estimated right ventricle systolic pressure: 63 mmHg assuming a right atrial pressure of at least 20 mmHg. Pulmonary artery systolic pressure: 43 mmHg by pulmonary acceleration time method. Very mild pulmonic regurgitation. MITRAL ANNULAR TISSUE DOPPLER: E prime lateral: 10.6 cm/s E prime septal: 7.6 cm/s DESCRIPTION: Rhythm was probably atrial fibrillation. Predominantly ventricular paced rhythm at 60 beats per minute (bpm). Image quality was fair. No pericardial effusion. CONCLUSIONS: 1. Normal left ventricle internal dimensions and wall thickness. Normal regional left ventricular (LV) wall motion and wall thickening. Normal LV systolic function. Left ventricular ejection fraction (LVEF) 60% by visual estimate. No paradoxical septal motion despite ventricular pacing. Unable to assess LV diastolic function in the setting of atrial fibrillation. 2. Suggestive of severe elevation of estimated right ventricle systolic pressure (at least 63 mmHg). Normal right ventricle size and systolic function. Severe atrial dilatation. 3. 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 4. Severe left atrial dilatation. 5. Mild-moderate aortic valve sclerosis of a 3-cusp aortic valve. Very mild aortic regurgitation. No aortic stenosis. 6. Mild dilatation of the aortic root at the level of the sinus of Valsalva. 7. Ventricular pacemaker lead coursing towards the right ventricle apex. 8. No pericardial effusion.
[2018-12-20] MEDS ORDERED: FUROSEMIDE 40 MG/4 ML VIAL (J1940) As Ordered ONE (18:05)
[2018-12-20] MEDS ORDERED: FUROSEMIDE 40 MG/4 ML VIAL (J1940) IV STA ×2 (18:05→18:29)
[2018-12-20] MEDS ORDERED: diphenhydrAMINE INJ 50MG/ML VIAL (J1200) As Ordered ONE (18:25)
[2018-12-20 18:34] LABS: ABG BASE EXCESS -6.2 (-2.0-2.0); ABG HCO3 17.4 MEQ/L (22.0-26.0); ABG O2 SATURATION 98.9 % (95.0-99.0); ABG PARTIAL PRESSURE CO2 29.5 mmHg (35.0-45.0); ABG STANDARD HCO3 19.4 MEQ/L (22.0-26.0); ABG TOTAL CO2 18.3 MEQ/L (23.0-31.0); ABG pH (ARTERIAL) 7.389 UNITS (7.350-7.450)
[2018-12-20] MEDS ORDERED: methylPREDNISolone INJ 125 MG/2 ML VIAL (J2930) As Ordered ONE (18:35)
[2018-12-20] MEDS ORDERED: methylPREDNISolone INJ 125 MG/2 ML VIAL (J2930) IV ONE (18:45)
[2018-12-20] MEDS ORDERED: diphenhydrAMINE INJ 50MG/ML VIAL (J1200) IM ONE (18:45)
--- NOTE | 2018-12-20 18:55 | REP ---
Clinical: Desaturation. Comparison: 12/19/2018. Findings: Stable cardiomegaly and evidence for prior sternotomy and CABG. Stable [id number]. Lung zuniga demonstrate increased markings suggesting the possibility of pulmonary vascular congestion/interstitial edema as well as bibasilar atelectasis (right greater than left). Layering right effusion cannot be excluded. Impression: Increased markings suggesting the possibility of pulmonary vascular congestion as well as bibasilar atelectasis (right greater than left) and small right effusion. Electronically Signed by Jewel Parisi MD 12/20/2018 06:45 P
[2018-12-20 19:19] LABS: CK-MB VALUE MASS 2.1 NG/ML (<3.6); MB/CK RELATIVE INDEX 2.69 (< OR =4); TROPONIN I 0.03 NG/ML (< 0.10)
[2018-12-20] MEDS ORDERED: ISOVUE-370 76% 100ML VIAL (Q9967) As Ordered ONE (19:46)
[2018-12-20] MEDS: IPRATROPIUM 0.5MG/ALBUTEROL 2.5MG INH SOL UD 3ML (DUONEB)(J7620) NEB SCH ×2 (20:00→23:56)
[2018-12-20] MEDS ORDERED: LORazepam 2 MG/ML VIAL (J2060) IV STA (20:47)
[2018-12-20] MEDS ORDERED: CLINDAMYCIN 600 MG in IV 1 EA IV SCH (21:00)
--- NOTE | 2018-12-20 21:05 | ECGEPIP ---
[facility] Test Date: 2018-12-20 Pat Name: SRINIVAS MASTERS Department: Room: [place] [address] Gender: Male Resident Surgeon: DAJUAN : 1935 Requested By: CHARLY OSBORNE PGY-1 Order Number: [id number] Reading MD: Justice Mclaughlin Measurements Intervals [place] Rate: 66 P: DE: 0 QRS: 56 QRSD: 146 T: -74 QT: 422 QTc: 445 Interpretive Statements Atrial rhythm difficult to determine, Suspect atrial paced rhythm with first- degree AV block. LEFT BUNDLE BRANCH BLOCK Electronically Signed on 12-20-2018 21:05:13 EDT by Justice Mclaughlin
--- NOTE | 2018-12-20 21:07 | REPVR ---
PROCEDURE INFORMATION: Exam: CT Angiography Chest With Contrast Exam date and time: 12/20/2018 7:42 PM Clinical history: 83 years old, male; Shortness of breath; Additional info: Possipbe pe TECHNIQUE: Imaging protocol: Computed tomographic angiography of the chest with intravenous contrast. 3D rendering: MIP reconstructed images were created and reviewed. Radiation optimization: All CT scans at this facility use at least one of these dose optimization techniques: automated exposure control; mA and/or kV adjustment per patient size (includes targeted exams where dose is matched to clinical indication); or iterative reconstruction. Contrast material: ISOVUE 370; Contrast volume: 75 ml; Contrast route: IV; COMPARISON: CT ANGIO CHEST 08/24/2015 12:35 PM FINDINGS: Limitations: This examination is severely limited for evaluation of pulmonary emboli given the severity of respiratory motion artifact. Tubes, catheters and devices: Cardiac pacer present with lead tips in the right atrium and right ventricle. Pulmonary arteries: No filling defects are identified within the main pulmonary trunk, right main pulmonary artery or left main pulmonary artery. Pulmonary emboli beyond the main pulmonary arteries cannot be excluded by this examination. If clinically necessary, then either repeat CT angiogram of the chest or radionuclide ventilation/perfusion lung scan is recommended. Aorta: Unremarkable. No aortic aneurysm. Lungs: There is a small patchy density in the posterior right lower lobe. Differential diagnosis includes atelectasis, pneumonitis, and pulmonary infarct. Pleural space: Unremarkable. No pneumothorax. No pleural effusion. Heart: Status post CABG. Mild cardiomegaly. Gallbladder and bile ducts: Tiny calcified stones within the gallbladder. Lymph nodes: Unremarkable. No enlarged lymph nodes. Bones/joints: Degenerative spondylosis of the thoracic spine. No acute fracture. Soft tissues: Unremarkable. IMPRESSION: 1. Severely limited examination secondary to respiratory motion artifact. Although no filling defect is identified within the main pulmonary trunk, right main pulmonary artery or left main pulmonary artery, emboli beyond the main pulmonary arteries cannot be excluded by this examination. If clinically necessary, then either repeat CT angiogram of the chest or radionuclide ventilation/perfusion lung scan is recommended. 2. Small patchy opacity in the posterior right lower lobe. Differential diagnosis includes atelectasis, pneumonia, and pulmonary infarct. 3. Status post CABG with mild cardiomegaly. 4. Cholelithiasis. Electronically signed by: Luis Manuel Michel On 12/20/2018 21:07:03 PM
[2018-12-20] MEDS: ATORVASTATIN 20 MG TAB PO SCH (21:45)
[2018-12-20] MEDS: ASPIRIN 81 MG ENTERIC TAB PO SCH (21:46)
--- NOTE | 2018-12-20 22:05 | REPVR ---
PROCEDURE INFORMATION: Exam: US Duplex Lower Extremity Veins Exam date and time: 12/20/2018 9:26 PM Clinical history: 83 years old, male; Edema, localized; Lower extremity, bilateral; Additional info: R/O dvt TECHNIQUE: Imaging protocol: Real-time duplex ultrasound of the Lower Extremities with 2-D roldan scale, color Doppler flow and spectral waveform analysis with image documentation. Complete exam focused on the bilateral lower extremity veins. COMPARISON: No relevant prior studies available. FINDINGS: Right deep veins: Unremarkable. The common femoral, femoral and popliteal veins are patent without thrombus. Normal Doppler waveforms. Normal compressibility and/or augmentation response. Right superficial veins: Saphenofemoral junction is patent without thrombus. 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 Left deep veins: Unremarkable. The common femoral, femoral and popliteal veins are patent without thrombus. Normal Doppler waveforms. Normal compressibility and/or augmentation response. Left superficial veins: Saphenofemoral junction is patent without thrombus. Soft tissues: Unremarkable. IMPRESSION: 1. No sonographic evidence of deep venous thrombosis. 2. 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 Electronically signed by: Pan Bates On 12/20/2018 22:05:40 PM
[2018-12-21] VITALS (12 sets, daily range): BP systolic 91–121; BP diastolic 51–60; O2SAT 95
[2018-12-21] MEDS: IPRATROPIUM 0.5MG/ALBUTEROL 2.5MG INH SOL UD 3ML (DUONEB)(J7620) NEB SCH ×6 (04:30→23:11)
[2018-12-21 05:11] LABS: BASO % 0.1 % (0.0-1.0); EOS % 0.1 % (0.0-3.0); HEMATOCRIT 37.9 % (42.0-52.0); HEMOGLOBIN 11.8 g/dl (13.5-17.5); LYMPH # 0.3 10^3/uL (1.5-5.0); LYMPH % 3.9 % (24.0-44.0); MEAN CORPUSCULAR HEMOGLOBIN 29.4 pg (27.0-33.0); MEAN CORPUSCULAR HGB CONC 31.1 g/dl (32.0-36.5); MEAN CORPUSCULAR VOLUME 94.5 fl (80.0-96.0); MONO # 0.1 10^3/uL (0.0-0.8); MONO % 1.6 % (0.0-5.0); NEUTROPHILS # 7.7 10^3/uL (1.5-8.5); NEUTROPHILS % 93.1 % (36.0-66.0); PLATELET COUNT, AUTOMATED 114 10^3/uL (150-450); RED BLOOD COUNT 4.01 10^6/uL (4.30-6.10); WHITE BLOOD COUNT 8.3 10^3/uL (4.0-10.0)
[2018-12-21 05:38] LABS: ALBUMIN 2.6 GM/DL (3.2-5.2); BILIRUBIN,TOTAL 0.8 MG/DL (0.2-1.0); CALCIUM LEVEL 8.3 MG/DL (8.8-10.2); CREATININE FOR GFR 1.79 MG/DL (0.70-1.30); GLOMERULAR FILTRATION RATE 38.7 (>35); MAGNESIUM LEVEL 2.1 MG/DL (1.8-2.4); POTASSIUM SERUM 4.9 MEQ/L (3.5-5.1); TOTAL PROTEIN 6.5 GM/DL (6.4-8.2)
[2018-12-21] MEDS ORDERED: methylPREDNISolone INJ 125 MG/2 ML VIAL (J2930) IV ONE (07:00)
[2018-12-21] MEDS ORDERED: VANCOMYCIN HCL 750 MG in IV FLUID PLACE HOLDER 1 EA IV SCH (07:30)
--- NOTE | 2018-12-21 08:16 | REP ---
Portable chest x-ray: Single view. History: Short of breath. Comparison study: December 20, 2018. Findings: A right-sided Nhsdzz-J-Ngtt catheter is again noted. The dual lead pacemaker is seen in the right heart via the left side. Median sternotomy wires are noted. Mediastinal clips are noted. Mild to moderate cardiomegaly is again observed unchanged. No infiltrate is seen. Pulmonary vasculature appears slightly cephalized. Impression: Cardiomegaly with pacemaker. Oadlaz-A-Nuui catheter. Vascular cephalization. No radiographic evidence of pleural effusion or pulmonary edema. Electronically Signed by Joby Bui MD 12/21/2018 08:08 A
[2018-12-21] MEDS ORDERED: FUROSEMIDE 40 MG/4 ML VIAL (J1940) IV SCH (09:00)
[2018-12-21] MEDS: LACTOBACILLUS ACIDOPHILUS CAP (BACID) PO SCH ×2 (09:18→17:16)
[2018-12-21] MEDS: LORATADINE 10 MG TAB PO SCH (09:19)
[2018-12-21] MEDS: MULTIVITAMINS/MINERALS THERAP 1 TAB PO SCH (09:19)
[2018-12-21] MEDS: APIXABAN 2.5 MG TAB (ELIQUIS) PO SCH ×2 (09:19→20:14)
[2018-12-21] MEDS: PANTOPRAZOLE 40MG TAB (PROTONIX) PO SCH (09:20)
[2018-12-21] MEDS: PIPERACILLIN/TAZOBACTAM SOD 2.25 GM in D5W MINI-BAG PLUS 50 ML IV SCH ×2 (09:21→16:12)
[2018-12-21] MEDS: CALCITRIOL 0.25 MCG CAP (S0169) PO SCH (09:33)
[2018-12-21 10:06] LABS: VANCOMYCIN RANDOM 5.1 UG/ML
[2018-12-21] MEDS ORDERED: VANCOMYCIN HCL 1,000 MG, VIAL MATE ADAPTER 1 EACH in D5W 250 ML IV SCH ×2 (11:00→12:00)
[2018-12-21] MEDS ORDERED: VANCOMYCIN HCL 500 MG in D5W MINI-BAG PLUS 100 ML IV SCH (12:00)
--- NOTE | 2018-12-21 12:09 | CR.PDOC ---
General Date of Consultation: Dec 21, [address] Young HPI: 83 year old M brought to the emergency department related to fever and confusion currently receiving IV vancomycin/Zosyn for possible pneumonia. The patient had a venous ultrasound of bilateral lower extremity to rule out DVT which was negative for DVT however indicated thrombosed right popliteal artery aneurysm. Vascular surgery was consulted regarding thrombosed right popliteal artery aneurysm. The patient is known to have chronic lower extremity edema and chronic stasis dermatitis, the patient states this has been unchanged. The patient denies pain currently in the lower extremities. Denies pain with ambulation. Denies pain behind the knee. Denies any recent changes the right lower extremity. His reports that there has been some increased erythema of the right lower extremity for the past 2-3 days. Denies any fevers, chills, weakness, fatigue, Headache, Chest Pain, Shortness of breath, cough, palpitations, abdominal pain, N/V/D or changes in bowel or bladder habits. 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 PE: GEN: 83yoM, appears stated age. Alert and oriented x 3. Pleasant, interactive. HEENT: Normocephalic, atraumatic. Moist mucous membranes. CHEST: Regular rate and rhythm, +S1, +S2 LUNGS: Clear to auscultation bilaterally. ABD: Round, soft, non-tender, non-distended. EXT: Toes are slightly cool to touch left greater than right. Pedal pulses are palpable on the right. More difficult to palpate on the left, obtained with Doppler. Diffuse edema is noted of the lower extremities bilaterally with stasis dermatitis changes, there is erythema noted of the distal right lower extremity pretibial area. NEURO: Alert and oriented x 3. No focal deficits appreciated. Vascular ultrasound FINDINGS: Right deep veins: Unremarkable. The common femoral, femoral and popliteal veins are patent without thrombus. Normal Doppler waveforms. Normal compressibility and/or augmentation response. Right superficial veins: Saphenofemoral junction is patent without thrombus. 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 Left deep veins: Unremarkable. The common femoral, femoral and popliteal veins are patent without thrombus. Normal Doppler waveforms. Normal compressibility and/or augmentation response. Left superficial veins: Saphenofemoral junction is patent without thrombus. Soft tissues: Unremarkable IMPRESSION: 1. No sonographic evidence of deep venous thrombosis. 2. 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 Electronically signed by: Pan Bates On 12/20/2018 22:05:40 PM A&P: 1. Right popliteal artery aneurysm. Noted on ultrasound 12/20/18 indicating 6 x 5.9 cm thrombosed right popliteal a rtery aneurysm. This is noted to be an incidental finding, the patient has been asymptomatic. His feet appear to be well perfused. Pulses are palpable on the right. Left are obtained with Doppler. The patient is reviewed by Dr. Young. The patient is noted to have some mild cellulitis of the right lower extremity. Will request bilateral lower extremity arterial ultrasound to further assess. Further recommendations/interventions pending review of this study. Dr. Young will discuss options further with the patient and his once results are available. We will continue to follow along with you. Vital Signs/I&O Vital Signs Date Time Temp Pulse Resp B/P (MAP) Pulse Ox O2 Delivery O2 Flow Rate FiO2 12/21/18 08:00 97.2 60 24 107/60 (76) 98 Room Air 12/21/18 06:00 2.0 I&O- Last 24 Hours up to 6 AM 12/21/18 06:00 Intake Total 2030 ml Output Total 2000 ml Balance 30 ml Laboratory Data Labs 24H Laboratory Tests 2 12/20/18 18:25: Blood Gas Bicarbonate Standard 19.4L, Arterial Blood pH 7.389, Arterial Blood Partial Pressure CO2 29.5L, Arterial Blood Partial Pressure O2 130.0H, Arterial Blood Total CO2 18.3L, Arterial Blood HCO3 17.4L, Arterial Blood Base Excess - 6.2L, Arterial Blood Oxygen Saturation 98.9 12/20/18 18:44: Total Creatine Kinase 78, Creatine Kinase MB 2.1, Creatine Kinase MB Relative Index 2.69, Troponin I 0.03 12/21/18 04:54: Immature Granulocyte % (Auto) 1.2, Neutrophils (%) (Auto) 93.1H, Lymphocytes (%) (Auto) 3.9L, Monocytes (%) (Auto) 1.6, Eosinophils (%) (Auto) 0.1, Basophils (%) (Auto) 0.1, Neutrophils # (Auto) 7.7, Lymphocytes # (Auto) 0.3L, Monocytes # (Auto) 0.1, Eosinophils # (Auto) 0.0, Basophils # (Auto) 0.0, Nucleated Red Blood Cells % (auto) 0.0, Anion Gap 11, Glomerular Filtration Rate 38.7, Calcium Level 8.3L, Magnesium Level 2.1, Total Bilirubin 0.8, Aspartate Amino Transf (AST/SGOT) 46H, Alanine Aminotransferase (ALT/SGPT) 48, Alkaline Phosphatase 160H, Total Protein 6.5, Albumin 2.6L, Albumin/Globulin Ratio 0.67L, Random Vancomycin Level 5.1 12/21/18 10:35: CBC/BMP Laboratory Tests 12/21/18 04:54 Microbiology Microbiology 12/19/18 Urine Culture - Final, Complete 12/19/18 Respiratory Virus Panel (PCR) (LEO) - Final, Complete 12/19/18 Blood Culture - Preliminary, Resulted No Growth after 48 hours. All Specime... 12/19/18 Blood Culture - Preliminary, Resulted No Growth after 48 hours. All Specime... Allergies Coded Allergies: cephalexin (Verified Allergy, Intermediate, HIVES, 12/19/18) Home Medications Scheduled Apixaban (Eliquis) 2.5 Mg Tablet, 2.5 MG PO BID, (Reported) Aspirin (Aspirin EC) 81 Mg Tabec, 81 MG PO QHS, (Reported) Atorvastatin Calcium (Atorvastatin Calcium) 40 Mg Tab, 40 MG PO QHS, (Reported) Calcitriol (Calcitriol) 0.25 Mcg Capsule, 0.5 MCG PO DAILY, (Reported) Furosemide (Lasix) 40 Mg Tab, 40 MG PO DAILY, (Reported) Loratadine (Loratadine) 10 Mg Tablet, 10 MG PO DAILY, (Reported) Magnesium Chloride (Slow-Mag) 1 Tab Tab, 1 TAB PO QHS, (Reported) Multivitamins (Thera M Plus Tablet) 1 Tab Tab, 1 TAB PO DAILY, (Reported) Pantoprazole Sodium (Protonix) 40 Mg Tab, 40 MG PO DAILY, (Reported) Pembrolizumab (Keytruda) 100 Mg/4 Ml Vial, 100 MG IV 3 WEEK CYCLE, (Reported) NEXT DOSE Dec Scheduled PRN Diphenhydramine HCl (Banophen) 25 Mg Tablet, 25 MG PO DAILY PRN for ALLERGY SYMPTOMS, (Reported) Fluticasone Propionate (Fluticasone Propionate) 16 Gm [place].susp, 1 SPRAY NARES BID PRN for CONGESTION, (Reported) Sennosides/Docusate Sodium (Colace 2-in-1 Tablet) 1 Each Tablet, 2 TAB PO QHS PRN for CONSTIPATION, (Reported) TAKEN IF NO B.M. FOR THE DAY Dania Marley Dec 21, 2018 12:09
[2018-12-21] MEDS ORDERED: VANCOMYCIN HCL 1,000 MG, VIAL MATE ADAPTER 1 EACH in D5W 250 ML IV ONE (13:00)
--- NOTE | 2018-12-21 13:14 | IPNPDOC ---
Date Seen The patient was seen on 12/21/18. 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 Patient was seen and examined in his room this morning, sitting up in bed comfortably. He states he does continue to have a nonproductive cough. He states his shortness of breath and wheezing are much improved compared to last night. He denies any dysuria or urinary urgency. He does state he has chronic urinary frequency, which may be related to medications he takes such as furosemide. He denies any fevers, chills, night sweats, nausea, vomiting, chest pain, palpitations, abdominal pain, diarrhea. After dinner last night he started to have increased shortness of breath and difficulty breathing which required oxygen supplementation with 15L via venti-mask to maintain O2 saturations in 90%s. CXR did not reveal any new acute findings. He was treated with 40mg IV furosemide, 25mg benadryl, and 125mg methylprenisolone along with duoneb treatment. He also received 1mg ativan overnight for agitation. His breathing status improved overnight and he is currently maintaining O2 saturations on room air. OBJECTIVE PHYSICAL EXAMINATION: VITAL SIGNS: Please see below. GENERAL: Awake, alert, comfortable, speaking in full sentences HEENT: Normocephalic, atraumatic, PERRLA, EOMI, moist mucous membranes CARDIOVASCULAR: Regular rate and rhythm, normal S1 and S2 RESPIRATORY: Equal air entry bilaterally, clear vesicular lung sounds bilaterally, no wheezing, rhonchi, rales. ABDOMINAL: Obese, soft, nontender, nondistended, bowel sounds present EXTREMITIES: 2+ pitting edema in bilateral lower extremities, right worse than left, erythematous rash noted on the right lower extremity without warmth, no calf tenderness NEUROLOGICAL: Mild weakness in the left upper and left lower extremities compared to the right. Alert and oriented 3 to person, place, time PSYCHOLOGICAL: Mood and affect appropriate LABORATORY DATA, IMAGING STUDIES, MICROBIOLOGY: Please see below. 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 This is improved. Patient now alert and oriented 3 - CT head 12/19: 1. 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 2. There is low attenuation abnormality in the periventricular white matter, likely reflecting chronic microvascular ischemic disease. If an acute infarct is clinically suspected, consider MRI with diffusion imaging. - Suspect this is related to infection, continue antibiotics as below # Fever / Leukocytosis - likely 2/2 UTI and cellulitis - Leukocytosis with neutrophil predominance, improved UA suggestive of possible UTI with positive leukocyte esterase and 3 WBC, urine cultures resulted as contaminated Blood cultures 2 negative at 24 hours, respiratory panel negative - Pending sputum cultures, legionella / strep pneumonia antigen, no imaging or physical exam evidence of pneumonia - Yesterday evening when patient was being reevaluated for increased shortness of breath, right lower extremity was concerning for cellulitis due to warmth and increased edema. Coverage was started with clindamycin and initially switched to vancomycin this morning. MRSA screen negative and pt switched back to clindamycin. - c/w antibiotics for UTI-(Zosyn switched to Bactrim day #3 of 7) and cellulitis-(Vancomycin switched to Clindamycin day #3 of 5) # Shortness of breath. Patient presented yesterday afternoon with acute episode of shortness of breath and wheezing. Improved this morning, patient no longer requiring oxygen supplementation. - Good diuresis with IV Lasix, will discontinue IV Lasix at this point and restart his home PO Lasix tomorrow. Patient also received DuoNeb treatments and Solu-Medrol # Suspected skin malignancy - Possibly 2/2 Melanoma - Patient has reported that he is on chemotherapy; Has received Keytruda on 12/08/2018 - Follows with Oncology as an outpatient # CAD s/p CABG # Atrial fibrillation - Currently appears rate controlled, continue with telemetry monitoring - Patient has a PM; however unclear as to why it was placed - c/w full anticoagulation with Eliquis # HTN - BP was hypotensive in the ER, improved with IV fluid hydration - pt on furosemide at home which has been on hold, received IV furosemide 40 mg twice a day due to shortness of breath and increased lower extremity edema, restart home PO lasix tomorrow # CHF? 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 I agree with the findings and plan of care as documented in the above note VS, I&O, 24H, Fishbone Vital Signs/I&O Vital Signs Date Time Temp Pulse Resp B/P (MAP) Pulse Ox O2 Delivery O2 Flow Rate FiO2 12/21/18 08:00 97.2 60 24 107/60 (76) 98 Room Air 12/21/18 06:00 2.0 l I&O- Last 24 Hours up to 6 AM 12/21/18 06:00 Intake Total 2030 ml Output Total 2000 ml Balance 30 ml Laboratory Data 24H LABS Laboratory Tests 2 12/20/18 18:25: Blood Gas Bicarbonate Standard 19.4L, Arterial Blood pH 7.389, Arterial Blood Partial Pressure CO2 29.5L, Arterial Blood Partial Pressure O2 130.0H, Arterial Blood Total CO2 18.3L, Arterial Blood HCO3 17.4L, Arterial Blood Base Excess - 6.2L, Arterial Blood Oxygen Saturation 98.9 12/20/18 18:44: Total Creatine Kinase 78, Creatine Kinase MB 2.1, Creatine Kinase MB Relative Index 2.69, Troponin I 0.03 12/21/18 04:54: Immature Granulocyte % (Auto) 1.2, Neutrophils (%) (Auto) 93.1H, Lymphocytes (%) (Auto) 3.9L, Monocytes (%) (Auto) 1.6, Eosinophils (%) (Auto) 0.1, Basophils (%) (Auto) 0.1, Neutrophils # (Auto) 7.7, Lymphocytes # (Auto) 0.3L, Monocytes # (Auto) 0.1, Eosinophils # (Auto) 0.0, Basophils # (Auto) 0.0, Nucleated Red Blood Cells % (auto) 0.0, Anion Gap 11, Glomerular Filtration Rate 38.7, Calcium Level 8.3L, Magnesium Level 2.1, Total Bilirubin 0.8, Aspartate Amino Transf (AST/SGOT) 46H, Alanine Aminotransferase (ALT/SGPT) 48, Alkaline Phosphatase 160H, Total Protein 6.5, Albumin 2.6L, Albumin/Globulin Ratio 0.67L, Random Vancomycin Level 5.1 12/21/18 10:35: CBC/BMP Laboratory Tests 12/21/18 04:54 Microbiology Microbiology 12/19/18 Urine Culture - Final, Complete 12/19/18 Respiratory Virus Panel (PCR) (LEO) - Final, Complete 12/19/18 Blood Culture - Preliminary, Resulted No Growth after 48 hours. All Specime... 12/19/18 Blood Culture - Preliminary, Resulted No Growth after 48 hours. All Specime... CHARLY OSBORNE PGY-1 Dec 21, 2018 13:14 YOLY DIAZ MD Dec 22, 2018 12:37
[2018-12-21] MEDS: CLINDAMYCIN 600 MG in IV 1 EA IV SCH (20:14)
[2018-12-21] MEDS: BACTRIM 160MG/800MG DS TAB PO SCH (20:14)
[2018-12-21] MEDS: ATORVASTATIN 20 MG TAB PO SCH (20:14)
[2018-12-21] MEDS: ASPIRIN 81 MG ENTERIC TAB PO SCH (20:14)
--- NOTE | 2018-12-21 20:16 | IPNPDOC ---
Date Seen The patient was seen on 12/21/18. Progress Note Pt seen and examined. 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 He was last seen by his vascular surgeon there in March, and at that time the stent was open. Sometime between now and then, the stent thrombosed according to imaging. The patient however is completely asymptomatic and has not noticed any change in his ambulation and no increased pain in the limb. This is very unusual. Usually we would see significant claudication versus gross ischemia, but the foot is warm and well-perfused. Signals are monophasic. He has cellulitis of the right lower extremity that started, per his , about 3-4 days ago. Otherwise, he's noticed no changes in the limb. He says he has had cellulitis before as he has chronic venous stasis in both lower extremities. The right lower extremity is significantly more swollen than the left, which may be due to cellulitis, may be partially related to the fact that he has had a greater saphenous vein resection for cardiac bypass, may be also still related to his venous insufficiency which may be worse in the right leg than the left. Nevertheless, I like to get a formal arterial duplex and see what levels perfusion we have with stent thrombosis. In an 83-year-old gentleman, with like to avoid an open revascularization and possible. If he has adequate perfusion despite thrombosis of the stent, then we may be able to hold off on any intervention. It is unclear how long ago the thrombosis occurred, but if it is chronic and attempt to open the stent with thrombolysis would not be successful. At this point, let's start with an arterial study and see if any further workup is needed. I've discussed this with the patient and his and they are agreeable to this plan. Further recommendations to follow. VS, I&O, 24H, Fishbone Vital Signs/I&O Vital Signs Date Time Temp Pulse Resp B/P (MAP) Pulse Ox O2 Delivery O2 Flow Rate FiO2 12/21/18 16:00 98.2 60 22 103/57 (72) 97 Room Air 12/21/18 07:40 2.0 I&O- Last 24 Hours up to 6 AM 12/21/18 06:00 Intake Total 2030 ml Output Total 2000 ml Balance 30 ml Laboratory Data 24H LABS Laboratory Tests 2 12/21/18 04:54: Immature Granulocyte % (Auto) 1.2, Neutrophils (%) (Auto) 93.1H, Lymphocytes (%) (Auto) 3.9L, Monocytes (%) (Auto) 1.6, Eosinophils (%) (Auto) 0.1, Basophils (%) (Auto) 0.1, Neutrophils # (Auto) 7.7, Lymphocytes # (Auto) 0.3L, Monocytes # (Auto) 0.1, Eosinophils # (Auto) 0.0, Basophils # (Auto) 0.0, Nucleated Red Blood Cells % (auto) 0.0, Anion Gap 11, Glomerular Filtration Rate 38.7, Calcium Level 8.3L, Magnesium Level 2.1, Total Bilirubin 0.8, Aspartate Amino Transf (AST/SGOT) 46H, Alanine Aminotransferase (ALT/SGPT) 48, Alkaline Phosphatase 160H, Total Protein 6.5, Albumin 2.6L, Albumin/Globulin Ratio 0.67L, Random Vancomycin Level 5.1 12/21/18 10:35: Methicillin-Resist S.aureus DNA PCR NOT DETECTED CBC/BMP Laboratory Tests 12/21/18 04:54 Microbiology Microbiology 12/19/18 Urine Culture - Final, Complete 12/19/18 Respiratory Virus Panel (PCR) ([facility]) - Final, Complete 12/19/18 Blood Culture - Preliminary, Resulted No Growth after 48 hours. All Specime... 12/19/18 Blood Culture - Preliminary, Resulted No Growth after 48 hours. All Specime... TERI THAKUR MD Dec 21, 2018 20:16
--- NOTE | 2018-12-21 20:54 | REPVR ---
PROCEDURE INFORMATION: Exam: US Bilateral Duplex Lower Extremity Arteries Exam date and time: 12/21/2018 6:50 PM Clinical history: 83 years old, male; Pain; Leg, lower; Bilateral; Prior surgery; Surgery date: 6+ months; Surgery type: RT pop anuerysm stent; Additional info: Right thrombosed popliteal aneurysm, cellulitis legs TECHNIQUE: Imaging protocol: Bilateral Real-time ultrasound scan of the arteries of the bilateral lower extremities with 2-D roldan scale, color Doppler flow and spectral waveform analysis. COMPARISON: No relevant prior studies available. FINDINGS: Right brachial peak systolic velocity of 106 cm/s. Left brachial peak systolic velocity of 94 cm/s. Right common femoral artery: Peak systolic velocity of 55 cm/s. Triphasic flow. Right superficial femoral artery: Peak systolic velocity of 238 cm/s in the midportion. Biphasic flow. Right popliteal artery: Large thrombosed popliteal artery aneurysm with a central patent stent. The aneurysm measures 10.3 x 7.7 x 7.6 cm. Peak systolic velocity within the stent measuring 100 cm/s. Monophasic flow. Right calf/foot arteries: Right dorsalis pedis peak systolic velocity of 140 cm/s. Right ankle brachial index of 1.3. Multiple arterial collaterals off the right anterior tibial artery extending distally to the foot. Left common femoral artery: Peak systolic velocity of 40 cm/s. Biphasic flow. Left superficial femoral artery: Peak systolic velocity of 144 cm/s. Triphasic flow. Left popliteal artery: Peak systolic velocity of 25 cm/s. Triphasic flow. Left calf/foot arteries: Left dorsalis pedis peak systolic velocity of 130 cm/s. Left ankle brachial index of 1.2. IMPRESSION: 1. Normal bilateral ankle brachial indices. 2. Large thrombosed rigt popliteal artery aneurysm with a central patent stent. 3. Increased velocities within the mid right superficial femoral artery, suggestive of high-grade stenosis. 4. Multiple arterial collaterals off the right anterior tibial artery extending distally to the foot. Given multiple previously described findings, recommend further evaluation with lower extremity CTA runoff. 5. Bilateral lower extremity peak systolic velocities, as detailed above. Electronically signed by: Daniel Russo On 12/21/2018 20:54:36 PM
[2018-12-22] MEDS: IPRATROPIUM 0.5MG/ALBUTEROL 2.5MG INH SOL UD 3ML (DUONEB)(J7620) NEB SCH ×6 (04:18→23:40)
[2018-12-22 04:49] LABS: BASO % 0.1 % (0.0-1.0); HEMATOCRIT 35.6 % (42.0-52.0); HEMOGLOBIN 11.5 g/dl (13.5-17.5); LYMPH # 0.4 10^3/uL (1.5-5.0); LYMPH % 3.6 % (24.0-44.0); MEAN CORPUSCULAR HEMOGLOBIN 29.9 pg (27.0-33.0); MEAN CORPUSCULAR HGB CONC 32.3 g/dl (32.0-36.5); MEAN CORPUSCULAR VOLUME 92.7 fl (80.0-96.0); MONO # 0.7 10^3/uL (0.0-0.8); MONO % 6.4 % (0.0-5.0); NEUTROPHILS # 10.1 10^3/uL (1.5-8.5); NEUTROPHILS % 89.5 % (36.0-66.0); PLATELET COUNT, AUTOMATED 144 10^3/uL (150-450); RED BLOOD COUNT 3.84 10^6/uL (4.30-6.10); WHITE BLOOD COUNT 11.3 10^3/uL (4.0-10.0)
[2018-12-22 05:00] VITALS: BP 96/54
[2018-12-22 05:25] LABS: CALCIUM LEVEL 8.7 MG/DL (8.8-10.2); GLOMERULAR FILTRATION RATE 34.1 (>35); POTASSIUM SERUM 4.4 MEQ/L (3.5-5.1)
[2018-12-22 05:26] LABS: BILIRUBIN,TOTAL 0.4 MG/DL (0.2-1.0); MAGNESIUM LEVEL 2.1 MG/DL (1.8-2.4); TOTAL PROTEIN 6.7 GM/DL (6.4-8.2)
[2018-12-22 08:00] VITALS: BP 119/72
[2018-12-22] MEDS ORDERED: FUROSEMIDE 40 MG TAB PO SCH (09:00)
[2018-12-22] MEDS: MULTIVITAMINS/MINERALS THERAP 1 TAB PO SCH (09:17)
[2018-12-22] MEDS: PANTOPRAZOLE 40MG TAB (PROTONIX) PO SCH (09:17)
[2018-12-22] MEDS: LACTOBACILLUS ACIDOPHILUS CAP (BACID) PO SCH ×2 (09:17→17:15)
[2018-12-22] MEDS: APIXABAN 2.5 MG TAB (ELIQUIS) PO SCH ×2 (09:17→20:27)
[2018-12-22] MEDS: LORATADINE 10 MG TAB PO SCH (09:17)
[2018-12-22] MEDS: BACTRIM 160MG/800MG DS TAB PO SCH ×2 (09:17→20:27)
[2018-12-22] MEDS: CALCITRIOL 0.25 MCG CAP (S0169) PO SCH (09:18)
[2018-12-22] MEDS: CLINDAMYCIN 600 MG in IV 1 EA IV SCH ×2 (09:18→20:26)
--- NOTE | 2018-12-22 09:42 | IPNPDOC ---
Date Seen The patient was seen on 12/22/18. 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 Patient was seen and examined in his room this morning, sitting up in a chair comfortably. He states he does continue to have a nonproductive cough. . He states his shortness of breath and wheezing have resolved. He does have chronic urinary frequency but denies any current dysuria or urinary urgency. He denies any fevers, chills, night sweats, nausea, vomiting, chest pain, palpitations, abdominal pain, diarrhea. OBJECTIVE PHYSICAL EXAMINATION: VITAL SIGNS: Please see below. GENERAL: Awake, alert, comfortable, speaking in full sentences HEENT: Normocephalic, atraumatic, PERRLA, EOMI, moist mucous membranes CARDIOVASCULAR: Regular rate and rhythm, normal S1 and S2 RESPIRATORY: Equal air entry bilaterally, clear vesicular lung sounds bilaterally, no wheezing, rhonchi, rales. ABDOMINAL: Obese, soft, nontender, nondistended, bowel sounds present EXTREMITIES: 2+ pitting edema in bilateral lower extremities up to the midcalf, right worse than left, venous stasis changes noticed present in bilateral lower extremities without warmth, no calf tenderness NEUROLOGICAL: Mild weakness in the left upper and left lower extremities compared to the right. Alert and oriented [address], he states he does not know the date, although he did bring up the fact that it is almost Halloween earlier in the encounter. PSYCHOLOGICAL: Mood and affect appropriate LABORATORY DATA, IMAGING STUDIES, MICROBIOLOGY: Please see below. 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 PROBLEMS: # Confusion / Acute metabolic encephalopathy -likely 2/2 infection - Presented to the emergency room after having confusion at home. This is improved. Patient now alert and oriented 3 - CT head 12/19: 1. 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 2. There is low attenuation abnormality in the periventricular white matter, likely reflecting chronic microvascular ischemic disease. If an acute infarct is clinically suspected, consider MRI with diffusion imaging. - Suspect this is related to infection, continue antibiotics as below # Fever / Leukocytosis - likely 2/2 UTI and cellulitis - Leukocytosis with neutrophil predominance, improved UA suggestive of possible UTI with positive leukocyte esterase and 3 WBC, urine cultures resulted as contaminated Blood cultures 2 negative at 72 hours, respiratory panel negative, MRSA PCR negative - Pending sputum cultures, legionella / strep pneumonia antigen, no imaging or physical exam evidence of pneumonia - Patient also initially presented with likely cellulitis of the right leg which has improved clinically on antibiotics - c/w antibiotics for UTI-(Bactrim day # 4 of 7) and cellulitis-(Clindamycin day # 4 of 5) #SHERLEY on CKD stage 3 - Creatinine elevated to 2.00. hold Lasix, may also be related to antibiotics - continue to evaluate BMP daily, consider further medication adjustments # Shortness of breath. Patient presented yesterday afternoon with acute episode of shortness of breath and wheezing. Improved this morning, patient no longer requiring oxygen supplementation. - Good diuresis with IV Lasix, hold Lasix at this point due to SHERLEY and clinical improvement Patient also received DuoNeb treatments and Solu-Medrol # Suspected skin malignancy - Possibly 2/2 Melanoma - Patient has reported that he is on chemotherapy; Has received Keytruda on 12/08/2018 - Follows with Oncology as an outpatient # CAD s/p CABG # Atrial fibrillation - Currently appears rate controlled, continue with telemetry monitoring - Patient has a PM; however unclear as to why it was placed - c/w full anticoagulation with Eliquis # HTN - BP was hypotensive in the ER, improved with IV fluid hydration - Hold furosemide and setting of SHERLEY # CHF? 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 I agree with the findings and plan of care as documented in the above note VS, I&O, 24H, Fishbone Vital Signs/I&O Vital Signs Date Time Temp Pulse Resp B/P (MAP) Pulse Ox O2 Delivery O2 Flow Rate FiO2 12/22/18 05:00 97.7 62 20 96/54 (68) 97 Room Air 12/21/18 07:40 2.0 I&O- Last 24 Hours up to 6 AM 12/22/18 06:00 Intake Total 1860 ml Output Total 650 ml Balance 1210 ml Laboratory Data 24H LABS Laboratory Tests 2 12/21/18 10:35: Methicillin-Resist S.aureus DNA PCR NOT DETECTED 12/22/18 04:24: Immature Granulocyte % (Auto) 0.4, Neutrophils (%) (Auto) 89.5H, Lymphocytes (%) (Auto) 3.6L, Monocytes (%) (Auto) 6.4H, Eosinophils (%) (Auto) 0.0, Basophils (%) (Auto) 0.1, Neutrophils # (Auto) 10.1H, Lymphocytes # (Auto) 0.4L, Monocytes # (Auto) 0.7, Eosinophils # (Auto) 0.0, Basophils # (Auto) 0.0, Nucleated Red Blood Cells % (auto) 0.0, Anion Gap 6L, Glomerular Filtration Rate 34.1L, Calcium Level 8.7L, Magnesium Level 2.1, Total Bilirubin 0.4, Aspartate Amino Transf (AST/SGOT) 29, Alanine Aminotransferase (ALT/SGPT) 52, Alkaline Phosphatase 152H, Total Protein 6.7, Albumin 3.0L, Albumin/Globulin Ratio 0.81L CBC/BMP Laboratory Tests 12/22/18 04:24 Microbiology Microbiology 12/19/18 Urine Culture - Final, Complete 12/19/18 Respiratory Virus Panel (PCR) ([facility]) - Final, Complete 12/19/18 Blood Culture - Preliminary, Resulted No Growth after 72 hours. All specime... 12/19/18 Blood Culture - Preliminary, Resulted No Growth after 72 hours. All specime... CHARLY OSBORNE PGY-1 Dec 22, 2018 09:42 YOLY DIAZ MD Dec 22, 2018 12:40
--- NOTE | 2018-12-22 09:50 | IPNPDOC ---
Text Note Date of Service The patient was seen on 12/22/18. NOTE The patient was seen for an incidental finding of Right thrombosed popliteal artery aneurysm noted on venous ultrasound study lower extremities.. The patient has been asymptomatic. He reported no changes in his lower extremities other than increased erythema of the distal pretibial area 3-4 days, possibly related to cellulitis. Patient is known to have chronic venous stasis bilateral lower extremities. His feet have been well perfused. Pulses are obtained with Doppler, monophasic. The patient is reviewed by Dr. Young. Bilateral lower extremity arterial ultrasound was completed to further assess. Dr. Young has reviewed the imaging personally. Flow is noted through popliteal stent. No vascular intervention would be recommended at this time. The findings are reviewed with the patient, his , and his daughter at the bedside this afternoon. Would recommend continued follow-up and outpatient management with the patient's vascular surgeon in [place]. The patient is advised to notify vascular surgery of any changes in right lower extremity, change in temperature, increased pain, swelling. VS,Isidrobone, I+O VS, Fishbone, I+O Laboratory Tests 12/22/18 04:24 Vital Signs Date Time Temp Pulse Resp B/P (MAP) Pulse Ox O2 Delivery O2 Flow Rate FiO2 12/22/18 05:00 97.7 62 20 96/54 (68) 97 Room Air 12/21/18 07:40 2.0 I&O- Last 24 Hours up to 6 AM 12/22/18 06:00 Intake Total 1860 ml Output Total 650 ml Balance 1210 ml Dania Marley Dec 22, 2018 09:50
[2018-12-22] MEDS ORDERED: VANCOMYCIN HCL 1,000 MG, VIAL MATE ADAPTER 1 EACH in D5W 250 ML IV SCH ×2 (12:00→14:00)
[2018-12-22] MEDS ORDERED: VANCOMYCIN HCL 750 MG, VIAL MATE ADAPTER 1 EACH in D5W 250 ML IV SCH ×2 (12:00→13:00)
[2018-12-22 15:55] VITALS: BP 102/55
[2018-12-22 20:00] VITALS: BP 109/56
[2018-12-22] MEDS: ATORVASTATIN 20 MG TAB PO SCH (20:27)
[2018-12-22] MEDS: ASPIRIN 81 MG ENTERIC TAB PO SCH (20:27)
[2018-12-23] MEDS: IPRATROPIUM 0.5MG/ALBUTEROL 2.5MG INH SOL UD 3ML (DUONEB)(J7620) NEB SCH ×2 (03:28→07:55)
[2018-12-23 05:13] LABS: BASO % 0.4 % (0.0-1.0); EOS # 0.2 10^3/uL (0.0-0.5); EOS % 2.6 % (0.0-3.0); HEMATOCRIT 35.7 % (42.0-52.0); HEMOGLOBIN 11.2 g/dl (13.5-17.5); LYMPH # 0.8 10^3/uL (1.5-5.0); LYMPH % 10.7 % (24.0-44.0); MEAN CORPUSCULAR HEMOGLOBIN 29.4 pg (27.0-33.0); MEAN CORPUSCULAR HGB CONC 31.4 g/dl (32.0-36.5); MEAN CORPUSCULAR VOLUME 93.7 fl (80.0-96.0); MONO # 0.7 10^3/uL (0.0-0.8); MONO % 9.4 % (0.0-5.0); NEUTROPHILS # 5.4 10^3/uL (1.5-8.5); NEUTROPHILS % 76.5 % (36.0-66.0); PLATELET COUNT, AUTOMATED 149 10^3/uL (150-450); RED BLOOD COUNT 3.81 10^6/uL (4.30-6.10)
[2018-12-23 05:42] LABS: BILIRUBIN,TOTAL 0.3 MG/DL (0.2-1.0); CALCIUM LEVEL 8.6 MG/DL (8.8-10.2); CREATININE FOR GFR 1.98 MG/DL (0.70-1.30); GLOMERULAR FILTRATION RATE 34.5 (>35); POTASSIUM SERUM 4.1 MEQ/L (3.5-5.1); TOTAL PROTEIN 6.7 GM/DL (6.4-8.2)
[2018-12-23 06:35] VITALS: BP 124/101
[2018-12-23] MEDS ORDERED: SULF1TAB93 PO (07:34)
[2018-12-23] MEDS ORDERED: RISATAB3 PO (07:34)
--- NOTE | 2018-12-23 07:34 | ECGEPIP ---
[facility] - ED Test Date: 2018-12-19 Pat Name: SRINIVAS MASTERS Department: Room: - Gender: Male Cook Short Order: : 1935 Requested By: Mel Couch Order Number: [id number] Reading MD: Lencho Hinson Measurements Intervals [place] Rate: 65 P: TN: 0 QRS: 5 QRSD: 136 T: -70 QT: 458 QTc: 477 Interpretive Statements ELECTRONIC ATRIAL PACEMAKER LEFT BUNDLE BRANCH BLOCK ST-T ABNORMALITIES MORE PRONOUNCED COMPARED TO 11/01/15 Electronically Signed on 12-23-2018 7:33:38 EDT by Lencho Hinson
[2018-12-23] MEDS: PANTOPRAZOLE 40MG TAB (PROTONIX) PO SCH (08:33)
[2018-12-23] MEDS: APIXABAN 2.5 MG TAB (ELIQUIS) PO SCH (08:33)
[2018-12-23] MEDS: LACTOBACILLUS ACIDOPHILUS CAP (BACID) PO SCH (08:33)
[2018-12-23] MEDS: CALCITRIOL 0.25 MCG CAP (S0169) PO SCH (08:33)
[2018-12-23] MEDS: MULTIVITAMINS/MINERALS THERAP 1 TAB PO SCH (08:33)
[2018-12-23] MEDS: BACTRIM 160MG/800MG DS TAB PO SCH (08:33)
[2018-12-23] MEDS: LORATADINE 10 MG TAB PO SCH (08:33)
[2018-12-23 08:40] VITALS: BP 119/56
--- NOTE | 2018-12-23 11:13 | DS.PDOC ---
Discharge Summary General Date of Admission Dec 19, 2018 at 10:27 Date of Discharge 12/23/2018 Attending Physician: YOLY DIAZ MD Discharge Summary PROCEDURES PERFORMED DURING STAY: None. ADMITTING DIAGNOSES: 1. Acute metabolic encephalopathy. 2. Infection of unknown source - possibly pneumonia 3. Suspected skin malignancy 4. CAD s/p CABG 5. Atrial fibrillation. 6. Hypertension. 7. History of CHF. 8. 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 9. Peripheral vascular disease. 10. CKD stage III 11. GERD DISCHARGE DIAGNOSES: 1. Acute metabolic encephalopathy. 2. UTI 3. Cellulitis 4. Suspected skin malignancy 5. CAD s/p CABG 6. Atrial fibrillation. 7. Hypertension. 8. History of CHF with preserved EF and diastolic dysfunction. 9. 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 10. Peripheral vascular disease. 11. CKD stage III 12. GERD COMPLICATIONS/CHIEF COMPLAINT: FEVER. HISTORY OF PRESENT ILLNESS: Bayron Castle is an 83-year-old male who presented to the emergency room due to confusion at home, which was noticed by his . She noted this had been going on for the past few days and decided to bring him in for further evaluation. In the emergency room, patient was also found to have a fever and leukocytosis. The patient also stated he did have a dry cough but denied any fevers, chills, night sweats, headache, nausea, vomiting, chest pain, shortness of breath, palpitations, abdominal pain, constipation, diarrhea, or urinary discomfort. It was noted that the patient has been on Keytruda chemotherapy for suspected skin malignancy and his last treatment was 12/08/2018. In the ED, head CT was negative for any acute changes and did reflect chronic changes from the patient's past, and stroke. He was also noted on exam to be oriented to person, month, and year, but unable to identify location and was not oriented to situation. HOSPITAL COURSE: Patient was admitted to the hospital and started on broad- spectrum antibiotic coverage with Zosyn and vancomycin for suspected pneumonia. After review of the patient's further studies including a chest x-ray, chest CT, and UA, became evident that the patient more likely had a urinary tract infection and did not currently have any acute pneumonia. Therefore, antibiotics were switched to Bactrim. In the late afternoon on the second day of the patient's admission, his respiratory status began to decline and he became increasingly short of breath. At that time he was noted to have increased leg swelling on the right worse than the left, erythema and warmth of the right LE, and bilateral crackles in the bases of the lungs. . He was started on clindamycin for cellulitis and given IV Lasix for fluid overload. Of note, his home PO lasix had been held on admission due to hypotensive blood pressure in the emergency room. The patient improved overnight and continued to improve throughout the rest of his admission. The clindamycin was discontinued due to cross coverage with Bactrim and he was continued on a seven-day course of Bactrim to complete in the outpatient setting. His mental status also continued to improve daily and his states he is back to his home baseline. He cleared evaluation by physical therapy and occupational therapy. On day of discharge, patient was found to be stable for discharge. DISCHARGE MEDICATIONS: Please see below. ALLERGIES: Please see below. PHYSICAL EXAMINATION ON DISCHARGE: VITAL SIGNS: Please see below. GENERAL: Awake, alert, comfortable, speaking in full sentences HEENT: Normocephalic, atraumatic, PERRLA, EOMI, moist mucous membranes CARDIOVASCULAR: Regular rate and rhythm, normal S1 and S2 RESPIRATORY: Equal air entry bilaterally, clear vesicular lung sounds bilaterally, no wheezing, rhonchi, rales. ABDOMINAL: Obese, soft, nontender, nondistended, bowel sounds present EXTREMITIES: 2+ pitting edema in bilateral lower extremities, right worse than left, erythematous rash noted on the right lower extremity without warmth, no calf tenderness NEUROLOGICAL: Mild weakness in the left upper and left lower extremities compared to the right. Alert and oriented 3 to person, place, time PSYCHOLOGICAL: Mood and affect appropriate LABORATORY DATA: Please see below. IMAGING: (as interpreted by radiologist) 12/19/[address]: 1. 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 2. There is low attenuation abnormality in the periventricular white matter, likely re flecting chronic microvascular ischemic disease. If an acute infarct is clinically suspected, consider MRI with diffusion imaging. 12/19/18 CXR: No acute infiltrate. 12/19/[address]: Small area of atelectasis or infiltrate posterior right lower lobe in the costophrenic sulcus. No other acute abnormalities. 12/19/18 CT abdomen/pelvis: Few small gallstones in the gallbladder without gallbladder wall thickening or edema, and no evidence of biliary dilatation. No free air or free fluid. Possible mild peripancreatic inflammatory change versus artifact, I cannot exclude mild pancreatitis. No pseudocyst. Small umbilical hernia contains noninflamed small bowel loop. 12/20/18 CXR: Increased markings suggesting the possibility of pulmonary vascular congestion as well as bibasilar atelectasis (right greater than left) and small right effusion. 12/20/18 bilateral LE duplex U/S: 1. No sonographic evidence of deep venous thrombosis. 2. 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 12/20/18 CTA: 1. Severely limited examination secondary to respiratory motion artifact. Although no filling defect is identified within the main pulmonary trunk, right main pulmonary artery or left main pulmonary artery, emboli beyond the main pulmonary arteries cannot be excluded by this examination. If clinically necessary, then either repeat CT angiogram of the chest or radionuclide ventilation/perfusion lung scan is recommended. 2. Small patchy opacity in the posterior right lower lobe. Differential diagnosis includes atelectasis, pneumonia, and pulmonary infarct. 3. Status post CABG with mild cardiomegaly. 4. Cholelithiasis. 12/21/18 CXR: Cardiomegaly with pacemaker. Kgfqff-I-Xjta catheter. Vascular cephalization. No radiographic evidence of pleural effusion or pulmonary edema. 12/21/18 bilateral LE arterial U/S: 1. Normal bilateral ankle brachial indices. 2. Large thrombosed rigt popliteal artery aneurysm with a central patent stent. 3. Increased velocities within the mid right superficial femoral artery, suggestive of high-grade stenosis. 4. Multiple arterial collaterals off the right anterior tibial artery extending distally to the foot. Given multiple previously described findings, recommend further evaluation with lower extremity CTA runoff. 5. Bilateral lower extremity peak systolic velocities, as detailed above. PROGNOSIS: Fair ACTIVITY: As tolerated. DIET: As tolerated DISCHARGE PLAN: Home DISPOSITION: Home. DISCHARGE INSTRUCTIONS: 1. Please follow-up with the PCP in 7-10 days. 2. Please follow-up with your vascular surgeon as scheduled regarding your right popliteal artery aneurysm. 3. Please complete your full course of antibiotics. 4. If your symptoms return or your condition worsens please call your PCP or return to the ED for further evaluation ITEMS TO FOLLOWUP ON ON OUTPATIENT: 1. Urinary tract infection and right leg cellulitis. 2. Right popliteal artery aneurysm, may consider reevaluation by vascular surgeon, who who performed his prior procedure. DISCHARGE CONDITION: Stable. I saw and evaluated the patient. I agree with the findings and plan of care as documented in the documenters note. I spent 45 minutes coordinating this patient's discharge. Vital Signs/I&Os Vital Signs Date Time Temp Pulse Resp B/P (MAP) Pulse Ox O2 Delivery O2 Flow Rate FiO2 12/23/18 08:40 98.1 60 20 119/56 (77) 96 Room Air 12/21/18 07:40 2.0 I&O- Last 24 Hours up to 6 AM 12/23/18 06:00 Intake Total 1540 ml Output Total 875 ml Balance 665 ml Laboratory Data Labs 24H Laboratory Tests 2 12/22/18 10:40: Urine Random Creatinine 139.0, Urine Random Urea Nitrogen 890 12/23/18 04:54: Immature Granulocyte % (Auto) 0.4, Neutrophils (%) (Auto) 76.5H, Lymphocytes (%) (Auto) 10.7L, Monocytes (%) (Auto) 9.4H, Eosinophils (%) (Auto) 2.6, Basophils (%) (Auto) 0.4, Neutrophils # (Auto) 5.4, Lymphocytes # (Auto) 0.8L, Monocytes # (Auto) 0.7, Eosinophils # (Auto) 0.2, Basophils # (Auto) 0.0, Nucleated Red Blood Cells % (auto) 0.0, Anion Gap 4L, Glomerular Filtration Rate 34.5L, Calcium Level 8.6L, Magnesium Level 2.0, Total Bilirubin 0.3, Aspartate Amino Transf (AST/SGOT) 30, Alanine Aminotransferase (ALT/SGPT) 57, Alkaline Phosphatase 158H, Total Protein 6.7, Albumin 3.0L, Albumin/Globulin Ratio 0.81L CBC/BMP Laboratory Tests 12/23/18 04:54 Microbiology Microbiology 12/19/18 Urine Culture - Final, Complete 12/19/18 Respiratory Virus Panel (PCR) (LEO) - Final, Complete 12/19/18 Blood Culture - Preliminary, Resulted No Growth after 72 hours. All specime... 12/19/18 Blood Culture - Preliminary, Resulted No Growth after 72 hours. All specime... Discharge Medications Scheduled Apixaban (Eliquis) 2.5 Mg Tablet, 2.5 MG PO BID, (Reported) Aspirin (Aspirin EC) 81 Mg Tabec, 81 MG PO QHS, (Reported) Atorvastatin Calcium (Atorvastatin Calcium) 40 Mg Tab, 40 MG PO QHS, (Reported) Calcitriol (Calcitriol) 0.25 Mcg Capsule, 0.5 MCG PO DAILY, (Reported) Furosemide (Lasix) 40 Mg Tab, 40 MG PO DAILY, (Reported) L.acidoph/L.bulg/B.bif/S.therm (Geeta-Bid Caplet) 1 Each Tablet, 1 EA PO BIDWM Loratadine (Loratadine) 10 Mg Tablet, 10 MG PO DAILY, (Reported) Magnesium Chloride (Slow-Mag) 1 Tab Tab, 1 TAB PO QHS, (Reported) Multivitamins (Thera M Plus Tablet) 1 Tab Tab, 1 TAB PO DAILY, (Reported) Pantoprazole Sodium (Protonix) 40 Mg Tab, 40 MG PO DAILY, (Reported) Pembrolizumab (Keytruda) 100 Mg/4 Ml Vial, 100 MG IV 3 WEEK CYCLE, (Reported) NEXT DOSE Dec Sulfamethoxazole/Trimethoprim (Sulfamethoxazole-Tmp Ds Tablet) 1 Each Tablet, 1 TAB PO BID Scheduled PRN Diphenhydramine HCl (Banophen) 25 Mg Tablet, 25 MG PO DAILY PRN for ALLERGY SYMPTOMS, (Reported) Fluticasone Propionate (Fluticasone Propionate) 16 Gm [place].susp, 1 SPRAY NARES BID PRN for CONGESTION, (Reported) Sennosides/Docusate Sodium (Colace 2-in-1 Tablet) 1 Each Tablet, 2 TAB PO QHS PRN for CONSTIPATION, (Reported) TAKEN IF NO B.M. FOR THE DAY Allergies Coded Allergies: cephalexin (Verified Allergy, Intermediate, HIVES, 12/19/18) CHARLY OSBORNE PGY-1 Dec 23, 2018 11:13 YOLY DIAZ MD Dec 23, 2018 15:39
== END 2018-12-23 10:39 | disposition home or self-care (01) | DRG 71 ==
LOC: M ED 06:31 → M ED INP 10:27 → M PCU 11:42 → M ICU 12-20 18:45
PROVIDERS: ADMIT Internal Medicine; ATTEND Internal Medicine
DX: G93.41 Metabolic encephalopathy (principal); I13.0 Hypertensive heart and chronic kidney disease with heart failure and stage 1 through stage 4 chronic kidney disease, or unspecified chronic kidney disease; L03.115 Cellulitis of right lower limb; N39.0 Urinary tract infection, site not specified; N17.9 Acute kidney failure, unspecified; T82.868A Thrombosis due to vascular prosthetic devices, implants and grafts, initial encounter; I48.91 Unspecified atrial fibrillation; I25.10 Atherosclerotic heart disease of native coronary artery without angina pectoris; N18.3 Chronic kidney disease, stage 3 (moderate); I73.9 Peripheral vascular disease, unspecified; C43.9 Malignant melanoma of skin, unspecified; E78.5 Hyperlipidemia, unspecified; K21.9 Gastro-esophageal reflux disease without esophagitis; I87.2 Venous insufficiency (chronic) (peripheral); Z79.82 Long term (current) use of aspirin; Z79.899 Other long term (current) drug therapy; Z86.73 Personal history of transient ischemic attack (TIA), and cerebral infarction without residual deficits; Z88.1 Allergy status to other antibiotic agents; Z98.41 Cataract extraction status, right eye; Z98.42 Cataract extraction status, left eye; Z95.0 Presence of cardiac pacemaker; Z85.828 Personal history of other malignant neoplasm of skin; Z79.01 Long term (current) use of anticoagulants; Z95.1 Presence of aortocoronary bypass graft; Y83.1 Surgical operation with implant of artificial internal device as the cause of abnormal reaction of the patient, or of later complication, without mention of misadventure at the time of the procedure

== ENCOUNTER → 2019-01-06 | Outpatient (CLI) | payer MEDICARE, OTHER ==
[~2019-01-06] MED LIST changes: +BANO25TA PO; +CALC1CAP31 PO; +COLA1TAB PO; +ELIQ2.5T PO; +FLUTISP NARES; +KEYT1INJ IV; +LORA10TA3 PO; +RISATAB3 PO; +SM LTAB5 PO; +SULF1TAB93 PO
[2019-01-06 12:06] LABS: BASO # 0.1 10^3/uL (0.0-0.2); BASO % 1.4 % (0.0-1.0); EOS # 0.2 10^3/uL (0.0-0.5); HEMATOCRIT 43.9 % (42.0-52.0); HEMOGLOBIN 13.1 g/dl (13.5-17.5); LYMPH # 0.8 10^3/uL (1.5-5.0); LYMPH % 13.6 % (24.0-44.0); MEAN CORPUSCULAR HEMOGLOBIN 28.7 pg (27.0-33.0); MEAN CORPUSCULAR HGB CONC 29.8 g/dl (32.0-36.5); MEAN CORPUSCULAR VOLUME 96.3 fl (80.0-96.0); MONO # 0.5 10^3/uL (0.0-0.8); MONO % 9.3 % (0.0-5.0); NEUTROPHILS # 4.1 10^3/uL (1.5-8.5); NEUTROPHILS % 72.5 % (36.0-66.0); PLATELET COUNT, AUTOMATED 167 10^3/uL (150-450); RED BLOOD COUNT 4.56 10^6/uL (4.30-6.10); WHITE BLOOD COUNT 5.7 10^3/uL (4.0-10.0)
[2019-01-06 12:49] LABS: ALBUMIN 3.6 GM/DL (3.2-5.2); CALCIUM LEVEL 8.7 MG/DL (8.8-10.2); CREATININE FOR GFR 1.5 MG/DL (0.70-1.30); GLOMERULAR FILTRATION RATE 47.5 (>35); MAGNESIUM LEVEL 2.2 MG/DL (1.8-2.4); PHOSPHORUS LEVEL 2.7 MG/DL (2.5-4.9); POTASSIUM SERUM 4.6 MEQ/L (3.5-5.1)
== END ==
LOC: M SMT 09:14
PROVIDERS: ATTEND Internal Medicine Cardiovascular Disease
DX: R09.89 Other specified symptoms and signs involving the circulatory and respiratory systems (principal); I50.32 Chronic diastolic (congestive) heart failure

== ENCOUNTER → 2019-11-08 | Outpatient (REF) | payer MEDICARE, OTHER ==
[~2019-11-08] MED LIST changes: +ACET650T61 PO; -TYLE650T35 PO
== END ==
LOC: M LAB REF 18:55
PROVIDERS: ATTEND Dermatology
DX: C44.622 Squamous cell carcinoma of skin of right upper limb, including shoulder (principal); C44.519 Basal cell carcinoma of skin of other part of trunk
CPT/HCPCS: 11102; 11103; 88305; G0463

== ENCOUNTER 2019-12-06 13:12 | Emergency (ER) | payer MEDICARE, OTHER ==
[~2019-12-06] VITALS: Ht 180.3 cm; Wt 136.4 kg
[2019-12-06 14:46] LABS: BASO # 0.1 10^3/uL (0.0-0.2); BASO % 0.9 % (0.0-1.0); EOS # 0.3 10^3/uL (0.0-0.5); EOS % 4.4 % (0.0-3.0); HEMATOCRIT 45.1 % (42.0-52.0); HEMOGLOBIN 14.1 g/dl (13.5-17.5); MEAN CORPUSCULAR HEMOGLOBIN 29.1 pg (27.0-33.0); MEAN CORPUSCULAR HGB CONC 31.3 g/dl (32.0-36.5); MEAN CORPUSCULAR VOLUME 93.2 fl (80.0-96.0); MONO # 0.6 10^3/uL (0.0-0.8); NEUTROPHILS # 3.8 10^3/uL (1.5-8.5); NEUTROPHILS % 67.3 % (36.0-66.0); PLATELET COUNT, AUTOMATED 161 10^3/uL (150-450); RED BLOOD COUNT 4.84 10^6/uL (4.30-6.10); WHITE BLOOD COUNT 5.7 10^3/uL (4.0-10.0)
[2019-12-06 15:04] LABS: INR 1.09; PROTHROMBIN TIME 14.3 SECONDS (12.5-14.3)
[2019-12-06 15:23] LABS: ALBUMIN 3.6 GM/DL (3.2-5.2); BILIRUBIN,DIRECT 0.2 MG/DL (0.0-0.2); CALCIUM LEVEL 9.4 MG/DL (8.8-10.2); CK-MB VALUE MASS 2.3 NG/ML (<3.6); CREATININE FOR GFR 1.76 MG/DL (0.70-1.30); GLOMERULAR FILTRATION RATE 39.4 (>35); MB/CK RELATIVE INDEX 3.48 (< OR =4); POTASSIUM SERUM 3.8 MEQ/L (3.5-5.1); THYROID STIMULATING HORMONE 3.09 uIU/ML (0.358-3.740); THYROXINE (T4) 8.4 UG/DL (4.5-12.0); TOTAL PROTEIN 7.3 GM/DL (6.4-8.2); TROPONIN I 0.05 NG/ML (< 0.10)
[2019-12-06 17:01] VITALS: BP 155/65
--- NOTE | 2019-12-06 20:52 | ECGEPIP ---
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
== END 2019-12-06 17:31 | disposition home or self-care (01) ==
LOC: EDBD 13:12 → M ED 13:12
DX: I50.9 Heart failure, unspecified (principal); I13.10 Hypertensive heart and chronic kidney disease without heart failure, with stage 1 through stage 4 chronic kidney disease, or unspecified chronic kidney disease; N18.30 Chronic kidney disease, stage 3 unspecified; K21.9 Gastro-esophageal reflux disease without esophagitis; I48.91 Unspecified atrial fibrillation; Z86.73 Personal history of transient ischemic attack (TIA), and cerebral infarction without residual deficits; Z95.0 Presence of cardiac pacemaker; Z95.1 Presence of aortocoronary bypass graft; Z88.1 Allergy status to other antibiotic agents; Z79.899 Other long term (current) drug therapy; Z79.01 Long term (current) use of anticoagulants; Z79.82 Long term (current) use of aspirin

== ENCOUNTER → 2020-01-10 | Outpatient (REF) | payer MEDICARE, OTHER | LOC: M LAB REF 17:13 | PROVIDERS: ATTEND Dermatology | DX: L90.5 Scar conditions and fibrosis of skin (principal); L57.8 Other skin changes due to chronic exposure to nonionizing radiation ==

== ENCOUNTER → 2020-02-01 | Outpatient (REF) | payer MEDICARE, OTHER | LOC: M LAB REF 18:46 | PROVIDERS: ATTEND Dermatology | DX: C44.41 Basal cell carcinoma of skin of scalp and neck (principal) ==

== ENCOUNTER → 2020-04-04 | Outpatient (REF) | payer MEDICARE, OTHER ==
[2020-04-04 14:17] LABS: ALBUMIN 3.5 GM/DL (3.2-5.2); ALT/SGPT 25 U/L (12-78); BILIRUBIN,TOTAL 0.8 MG/DL (0.2-1.0); BLOOD UREA NITROGEN 27 MG/DL (7-18); CALCIUM LEVEL 9.1 MG/DL (8.8-10.2); CARBON DIOXIDE LEVEL 33 MEQ/L (21-32); CHLORIDE LEVEL 107 MEQ/L (98-107); CHOLESTEROL LEVEL 142 MG/DL (<200); CHOLESTEROL RISK RATIO 4.437 (<5); CREATININE FOR GFR 1.89 MG/DL (0.70-1.30); GLOMERULAR FILTRATION RATE 36.3 (>35); GLUCOSE, FASTING 81 MG/DL (70-100); HDL CHOLESTEROL 32 MG/DL (>40); LDL CHOLESTEROL 90 MG/DL (<100); NON-HDL-C 110 MG/DL; POTASSIUM SERUM 3.9 MEQ/L (3.5-5.1); SODIUM LEVEL 145 MEQ/L (136-145); TOTAL PROTEIN 6.8 GM/DL (6.4-8.2); TRIGLYCERIDES LEVEL 99 MG/DL (<150)
[2020-04-04 14:27] LABS: PTH INTACT 64.7 PG/ML (18.5-88.0); VITAMIN B12 LEVEL 536 PG/ML
[2020-04-04 14:28] LABS: FOLATE > 24.0 NG/ML
[2020-04-04 14:48] LABS: HEMOGLOBIN A1c 5.6 %
== END ==
LOC: M SFHCPLAZ 11:59
PROVIDERS: ATTEND Internal Medicine
DX: N18.30 Chronic kidney disease, stage 3 unspecified (principal); R73.01 Impaired fasting glucose; E78.00 Pure hypercholesterolemia, unspecified; R41.89 Other symptoms and signs involving cognitive functions and awareness
CPT/HCPCS: 36415; 80053; 80061; 82607; 82746; 83036; 83970; G0463

== ENCOUNTER → 2020-06-08 | Outpatient (CLI) | payer MEDICARE, OTHER ==
[~2020-06-08] MED LIST changes: +ASPI-569 PO; -ASPI81TAEC PO
--- NOTE | 2020-06-08 11:51 | REP ---
INDICATION: COUGH FOR 2 WEEKS; HX OF LUNG CANCER, RECURRENT PNEUMONIA. COMPARISON: 12/06/2019 TECHNIQUE: PA and lateral FINDINGS: The cardiomediastinal silhouette is unchanged. There is mild cardiomegaly. There is a dual chamber bipolar pacemaker device status quo. Note is again made of previous median sternotomy. The tip of the MediPort device is again seen in the superior vena cava. There is no significant change in the appearance of the lung zuniga. Basilar fibrotic changes are again noted status quo. No acute patchy parenchymal opacities or pleural effusions have developed. There is no significant change in appearance of the imaged osseous structures. IMPRESSION: Stable chronic changes as described above. <Electronically signed by Dylan Aragon > 06/08/20 [id number]
== END ==
LOC: M CLY 10:59
PROVIDERS: ATTEND Physician Assistant
DX: I51.7 Cardiomegaly (principal); R05 Cough; Z95.0 Presence of cardiac pacemaker
CPT/HCPCS: 71046; G0463

== ENCOUNTER → 2020-08-15 | Outpatient (REF) | payer MEDICARE, OTHER ==
[~2020-08-15] MED LIST changes: +BACTDSTA PO; +CEFD1CAP8 PO; +DOXY100T; +ROCA0.5C PO; -SULF1TAB93 PO
== END ==
LOC: M LAB REF 14:04
PROVIDERS: ATTEND Dermatology
DX: C43.31 Malignant melanoma of nose (principal)

== ENCOUNTER 2020-08-22 11:21 | Inpatient (IN) | payer MEDICARE, OTHER ==
[~2020-08-22] VITALS: Ht 182.9 cm; Wt 110.2 kg
[~2020-08-22 11:21] MED LIST changes: -CEFD1CAP8 PO; -DOXY100T; -ROCA0.5C PO
[2020-08-22] MEDS ORDERED: DOXY100T (11:53)
--- NOTE | 2020-08-22 12:20 | REP ---
INDICATION: DYSPNEA/COUGH COMPARISON: 06/08/2020 TECHNIQUE: Portable AP view of the chest FINDINGS: Examination is limited by portable technique, underpenetration, and poor inspiratory effort. Cardiomegaly is again appreciated along with prior sternotomy, CABG, and dual lead pacemaker placement. Lzodlo-L-Biid identified with tip in the SVC remains stable. The visualized lung zuniga are relatively well aerated and without obvious acute consolidation or effusion. No pneumothorax. IMPRESSION: Limited examination demonstrating relatively stable chronic findings including cardiomegaly. No obvious acute consolidation or effusion. <Electronically signed by Jewel Parisi > 08/22/20 [id number]
[2020-08-22 12:47] LABS: BASO % 0.4 % (0.0-1.0); EOS # 0.1 10^3/uL (0.0-0.5); EOS % 0.8 % (0.0-3.0); HEMATOCRIT 43.4 % (42.0-52.0); HEMOGLOBIN 13.5 g/dl (13.5-17.5); LYMPH # 0.4 10^3/uL (1.5-5.0); LYMPH % 3.9 % (24.0-44.0); MEAN CORPUSCULAR HEMOGLOBIN 29.3 pg (27.0-33.0); MEAN CORPUSCULAR HGB CONC 31.1 g/dl (32.0-36.5); MEAN CORPUSCULAR VOLUME 94.1 fl (80.0-96.0); MONO # 0.4 10^3/uL (0.0-0.8); NEUTROPHILS # 9.9 10^3/uL (1.5-8.5); NEUTROPHILS % 90.4 % (36.0-66.0); PLATELET COUNT, AUTOMATED 174 10^3/uL (150-450); RED BLOOD COUNT 4.61 10^6/uL (4.30-6.10); WHITE BLOOD COUNT 10.9 10^3/uL (4.0-10.0)
[2020-08-22 13:20] LABS: ALBUMIN 3.6 GM/DL (3.2-5.2); BILIRUBIN,DIRECT 0.3 MG/DL (0.0-0.2); BILIRUBIN,TOTAL 1.1 MG/DL (0.2-1.0); CALCIUM LEVEL 8.9 MG/DL (8.8-10.2); CK-MB VALUE MASS 1.8 NG/ML (<3.6); CREATININE FOR GFR 1.59 MG/DL (0.70-1.30); GLOMERULAR FILTRATION RATE 44.2 (>35); MB/CK RELATIVE INDEX 2.95 (< OR =4); POTASSIUM SERUM 4.1 MEQ/L (3.5-5.1); TOTAL PROTEIN 7.2 GM/DL (6.4-8.2); TROPONIN I 0.03 NG/ML (< 0.10)
[2020-08-22] MEDS ORDERED: NS 500 ML IV ONE (13:40)
[2020-08-22] MEDS ORDERED: ACETAMINOPHEN TAB 650MG DOSE (2X325MG) PO ONE (14:25)
--- NOTE | 2020-08-22 14:34 | REP ---
INDICATION: right lower quadrant tenderness COMPARISON: Comparison CT study December 19, 2018.. TECHNIQUE: Helical scanning is acquired and 3 mm axial images were reformatted. Coronal and sagittal MPR images were generated and reviewed. FINDINGS: Preliminary digital claims manager radiograph is noncontributory. The lung bases are clear on axial CT images. Cardiac pacemaker leads are noted in the right heart. Cardiomegaly is observed. There is no evidence of pleural effusion or upper abdominal ascites. No hepatic or splenic lesion is seen. There are slightly calcified gallstones in the dependent portion the gallbladder. No abnormality is noted in the pancreas. The adrenal glands are normal in appearance. No significant renal abnormality. There is a 2.2 cm cyst in the lower pole of the right kidney. Vascular calcification is observed. There are dystrophic calcifications in the prostate. Is urinary bladder wall thickening is seen although the bladder is not distended. A normal appendix is noted in the right lower quadrant. There is mild aneurysmal dilation of the distal abdominal aorta, 3.5 cm in AP dimension. 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 The left common iliac artery aneurysm measures 3.9 cm in greatest transverse dimension. The right common iliac artery measures 2.9 cm in diameter. The proximal internal iliac arteries are somewhat dilated as well. External iliac and common femoral arteries are normal in caliber. Small and large bowel loops are unremarkable. There is a periumbilical ventral hernia trans Leslie an unobstructed loop of small intestine. An epigastric ventral hernia is seen trans Leslie omental fat. No other abdominal wall defect is seen. IMPRESSION: No acute gastrointestinal abnormality. Cholelithiasis is seen. There is a lower pole cyst in the right kidney measuring 2.2 cm in diameter. 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 Left common iliac artery measures 3.9 cm in greatest diameter. There is a normal appendix visible in the right lower quadrant.. There is a periumbilical ventral hernia transmitting an unobstructed loop of what appears to be small intestine. <Electronically signed by Chucho Bui > 08/22/20 [id number]
[2020-08-22] MEDS ORDERED: NS 1,000 ML IV ONE (14:35)
[2020-08-22] MEDS ORDERED: VANCOMYCIN HCL 1,000 MG, VIAL MATE ADAPTER 1 EACH in NS 250 ML IV SCH (15:40)
[2020-08-22] MEDS ORDERED: VANCOMYCIN HCL 1,000 MG, VIAL MATE ADAPTER 1 EACH in NS 250 ML IV ONE ×2 (15:43→18:00)
[2020-08-22] MEDS ORDERED: PIPERACILLIN/TAZOBACTAM SOD 4.5 GM in D5W MINI-BAG PLUS 50 ML IV ONE (15:45)
[2020-08-22] MEDS ORDERED: ROCA0.5C PO (16:09)
[2020-08-22 16:50] LABS: RSV AMPLIFICATION NEGATIVE (NEGATIVE)
[2020-08-22] MEDS ORDERED: FLUTICASONE PROP 0.05% NASAL SPRAY 16 GM (FLONASE) NARES PRN (17:05)
[2020-08-22] MEDS ORDERED: MOM 30ML SUSPENSION UDC PO PRN (17:20)
[2020-08-22] MEDS ORDERED: ACETAMINOPHEN TAB 650MG DOSE (2X325MG) PO PRN (17:20)
[2020-08-22] MEDS ORDERED: MAALOX 30 ML SUSP *UDC PO PRN (17:20)
--- NOTE | 2020-08-22 17:31 | HPEPDOC ---
[facility] Medical History & Physical Date of Admission Aug 22, 2020 Date of Service: Aug 22, 2020 History and Physical CHIEF COMPLAINT: Chills HISTORY OF PRESENT ILLNESS: 85-year-old male with an extensive medical history as outlined below including multiple skin cancers an extensive cardiac history who comes to the emergency department with his today because of chills at home. He noticed chills for 1 day and subjective fevers. They were on their way to see his financial agent today when he wasn't feeling well and his opted to bring him to the hospital. In the emergency department he was found to be febrile to 102.4. Patient states he was feeling well prior to this his birthday was yesterday and he had a gathering was his family. He denies any chest pain. He does endorse noticing becoming progressively more short of breath today without associated cough or sputum production. He denies any increased lower extremity swelling. Denies abdominal pain. Denies dysuria. His did endorse that briefly he se emed a little more confused and usual but she also endorses he has a history of dementia and quite often becomes intermittently confused she tells me that at this time in the emergency department he is not confused and acting normally. In the emergency department workup was unrevealing for the cause of his fever. Chest x-ray was negative for calcitonin was negative and UA was negative. He was started empirically on vancomycin and Zosyn and blood cultures were collected. Patient will be admitted to the hospital service for further workup of his fever and management as necessary. I noted on the monitor in the emergency department that he was desaturating around 84% to 87% on room air but did not appear in respiratory distress. PAST MEDICAL/SURGICAL HISTORY: Multiple skin cancers follows with dermatology Coronary artery disease status post CABG Atrial fibrillation. Follows with Dr. Chris on lisa has pacemaker Chronic kidney disease GERD History of stroke right MCA territory Peripheral artery disease with stenting Hyperlipidemia CABG 1987 and 1998 Multiple excisions of skin cancers most recently Mohs procedure on scalp AAA repair 2000 Bilateral cataract surgery SOCIAL HISTORY: Denies alcohol use currently quit 10 years ago Denies tobacco use Denies illicit drug use Used to work as a [employer] FAMILY HISTORY: Reviewed and none contributory to this admission ALLERGIES: Please see below. REVIEW OF SYSTEMS: 10 point review of systems complete all negative otherwise stated in HPI HOME MEDICATIONS: Please see below. PHYSICAL EXAMINATION: Constitutional: Awake and alert, in no apparent distress. Appears elderly, frail and weak. ENT: Sclera are clear. Mucosa is moist. Respiratory: Lungs diminished breath sounds bilaterally. No respiratory distress. Noted to be saturating at 84-87% on room air Cardiovascular: Paced rate heart rate 60 on monitor. Midsternal scar. Gastrointestinal: Abdomen is soft, non distended, non tender, BS present. Musculoskeletal: No lower extremity edema. Wearing compression stockings. Neurologic: No focal neurological deficit. Mental Status: A&O x3, normal affect. Skin: Scalp with hattie post Mohs procedure. Left nose s/p biopsy. LABORATORY DATA: See below. IMAGING: See chart MICROBIOLOGY: Please see below. ASSESSMENT/PLAN 85-year-old male with an extensive cardiac history of multiple skin cancers presents because of a one-day history of chills at home and shortness of breath found to be febrile to 102.4 in the ED without it clear etiology. Admitted for further medical workup and management. # Fever: No clear source of infection. UA ok. CXR ok. Procalcitonin negative <0.05. Mild leukocytosis on admit 10.9. Mild LA 2.2. COVID negative. Full Resp panel ordered. Empirically on IV vanc and zosyn. BCx ordered. febrile to 102.4 on admit. # Dyspnea: Hypoxia noted to be saturating at 84% on room air. Supplemental oxygen. No clear cause. Doesn't appear to be fluid overloaded. Obtain new echo. Fu ABG. Fu respiratory panel. # Atrial fibrillation: Continue eliquis for anticoagulation. Pacemaker in place. Follows with Dr. Chris # CHFpEF: Not in exacerbation. Last echo 2018 showing 60% EF. Continue home Lasix. Obtain new echo. # CKD: Close to baseline. Avoid nephrotoxins if possible. Continue calcitriol. M onitor renal function # CAD s/p CABG: Continue aspirin and statin. # PVD with stenting: Continue aspirin and statin. # GERD: continue protonix # Multiple skin cancer/skin lesions: Follow-up with financial agent after discharge # AAA/ BL iliac AA: follows with vascular surgeon Dr Adler in [facility] appointment in August # Dementia: per his he's often intermittently confused. # CVA: continue ASA, statin, eliquis # Hyperlipidemia: Continue statin # Obesity: BMI 33. Complicating care # DVT prophylaxis: Eliquis CODE STATUS: DNR/DNI - confirmed with and patient A Youse[facility] Hospitalist Vital Signs Vital Signs Date Time Temp Pulse Resp B/P (MAP) Pulse Ox O2 Delivery O2 Flow Rate FiO2 08/22/20 16:00 98.8 60 24 112/59 (76) 94 Room Air Laboratory Data Labs 24H Laboratory Tests 2 08/22/20 11:44: Immature Granulocyte % (Auto) 0.5, Neutrophils (%) (Auto) 90.4H, Lymphocytes (%) (Auto) 3.9L, Monocytes (%) (Auto) 4.0, Eosinophils (%) (Auto) 0.8, Basophils (%) (Auto) 0.4, Neutrophils # (Auto) 9.9H, Lymphocytes # (Auto) 0.4L, Monocytes # (Auto) 0.4, Eosinophils # (Auto) 0.1, Basophils # (Auto) 0.0, Nucleated Red Blood Cells % (auto) 0.0, Anion Gap 7L, Glomerular Filtration Rate 44.2, Calcium Level 8.9, Total Bilirubin 1.1H, Direct Bilirubin 0.3H, Aspartate Amino Transf (AST/SGOT) 24, Alanine Aminotransferase (ALT/SGPT) 23, Alkaline Phosphatase 185H, Total Creatine Kinase 61, Creatine Kinase MB 1.8, Creatine Kinase MB Relative Index 2.95, Troponin I 0.03, Total Protein 7.2, Albumin 3.6, Albumin/Globulin Ratio 1.0 08/22/20 11:45: Lactic Acid Level 2.2*H 08/22/20 12:19: Procalcitonin <0.05 08/22/20 12:35: Urine Color YELLOW, Urine Appearance HAZY, Urine pH 5.0, Urine Specific [place] 1.017, Urine Protein NEGATIVE, Urine Glucose (UA) NEGATIVE, Urine Ketones NEGATIVE, Urine Blood 1+H, Urine Nitrite NEGATIVE, Urine Bilirubin NEGATIVE, Urine Urobilinogen 0.2, Urine Leukocyte Esterase NEGATIVE, Urine WBC (Auto) 3, Urine RBC (Auto) 2, Urine Hyaline Casts (Auto) 0, Urine Bacteria (Auto) NEGATIVE, Urine Squamous Epithelial Cells 0, Urine Mucus (Auto) SMALL, Urine Sperm (Auto) 08/22/20 15:01: Coronavirus (COVID-19)(PCR) NEGATIVE, Influenza Type A (RT-PCR) NEGATIVE, Influenza Type B (RT-PCR) NEGATIVE, Respiratory Syncytial Virus (PCR) NEGATIVE CBC/BMP Laboratory Tests 08/22/20 11:44 Microbiology Microbiology 08/22/20 Blood Culture, Received Pending 08/22/20 Blood Culture, Received Pending Home Medications Scheduled Apixaban (Eliquis) 2.5 Mg Tablet, 2.5 MG PO BID Aspirin (Aspirin EC) 81 Mg Tabec, 81 MG PO QHS Atorvastatin Calcium (Atorvastatin Calcium) 40 Mg Tab, 40 MG PO QHS Calcitriol (Rocaltrol) 0.5 Mcg Capsule, 0.5 MCG PO QHS Furosemide (Lasix) 40 Mg Tab, 40 MG PO DAILY Loratadine (Loratadine) 10 Mg Tablet, 10 MG PO DAILY Magnesium Chloride (Slow-Mag) 1 Tab Tab, 1 TAB PO QHS Multivitamins (Thera M Plus Tablet) 1 Tab Tab, 1 TAB PO DAILY Pantoprazole Sodium (Protonix) 40 Mg Tab, 40 MG PO DAILY Scheduled PRN Diphenhydramine HCl (Banophen) 25 Mg Tablet, 25 MG PO DAILY PRN for ALLERGY SYMPTOMS Fluticasone Propionate (Fluticasone Propionate) 16 Gm [place].susp, 1 SPRAY NARES BID PRN for CONGESTION Allergies Coded Allergies: cephalexin (Verified Allergy, Intermediate, HIVES, 12/19/18) ciprofloxacin (Verified Allergy, Mild, RASH, 08/22/20) CECIL FARMER MD Aug 22, 2020 17:30
[2020-08-22 18:22] LABS: ABG BASE EXCESS -0.8 (-2.0-2.0); ABG O2 SATURATION 93.9 % (95.0-99.0); ABG PARTIAL PRESSURE CO2 34.9 mmHg (35.0-45.0); ABG PARTIAL PRESSURE O2 68.7 mmHg (75.0-100.0); ABG STANDARD HCO3 23.8 MEQ/L (22.0-26.0); ABG pH (ARTERIAL) 7.436 UNITS (7.350-7.450)
[2020-08-22 18:25] LABS: INR 1.22; PROTHROMBIN TIME 15.7 SECONDS (12.5-14.3)
[2020-08-22 20:10] VITALS: BP 115/77
[2020-08-22 21:20] VITALS: BP 110/68
[2020-08-22 21:25] VITALS: BP 110/68
--- NOTE | 2020-08-22 21:40 | IPNPDOC ---
Subjective Date Seen The patient was seen on 08/22/20. Subjective Chief Complaint/HPI Left side facial droop Events since last encounter Called by RN with possible left side facial droop and some left side weakness. Patient with hx of R stroke but no previous documentation of left facial droop or weakness. RN attempted to get in touch with the patient's but was unable to discuss findings with her. Code Stroke called with last known well around 1-1.5 hours ago. Objective Physical Examination Other physical findings Patient is alert and oriented to person and situation. Cannot say where he is or why he is here. This is his baseline according to nursing. He has some chronic scarring at the left shinto but it is difficult to determine if there is indeed a facial droop or if there is chronic changes from multiple procedures in that area causing a slight change in the contour of the lips. Speech is clear and easily understood. No numbness of face noted. Neuro exam is negative with no unilateral weakness noted. Assessment /Plan Assessment 1. Possible left side facial droop which may be chronic. Will check CT of the head without contrast and will consult with Neurology once results are obtained. Will also check CBC, BMP. Case discussed with Dr. Alcantara. CT of the head is negative. Will continue low dose aspirin as well as low dose Eliquis. Case discussed with Dr. Siddiqui, Neurology, by phone. He recommended an MRI of the brain to be done when able and to continue current treatment. Will order MRI for tomorrow. # Fever: No clear source of infection. UA ok. CXR ok. Procalcitonin negative <0.05. Mild leukocytosis on admit 10.9. Mild LA 2.2. COVID negative. Full Resp panel ordered. Empirically on IV vanc and zosyn. BCx ordered. febrile to 102.4 on admit. 2. Dyspnea: Hypoxia noted earlier today to be saturating at 84% on room air. Continue supplemental oxygen and titrate as needed. . No clear cause. Doesn't appear to be fluid overloaded. Obtain new echo. Fu ABG. Fu respiratory panel. 3. Atrial fibrillation: Continue eliquis for anticoagulation. Pacemaker in place. Follows with Dr. Chris 4. CHFpEF: Not in exacerbation. Last echo 2018 showing 60% EF. Continue home Lasix. Obtain new echo. 5. CKD: Close to baseline. Avoid nephrotoxins if possible. Continue calcitriol. Monitor renal function 6. CAD s/p CABG: Continue aspirin and statin. 7. PVD with stenting: Continue aspirin and statin. 8. GERD: continue protonix 9. Multiple skin cancer/skin lesions: Follow-up with [employer] after discharge 10. AAA/ BL iliac AA: follows with vascular surgeon Dr Adler in [facility] appointment in September 02. Dementia: per his he's often intermittently confused. 12. CVA: continue ASA, statin, eliquis 13. Hyperlipidemia: Continue statin 14. Obesity: BMI 33. Complicating care 15. DVT prophylaxis: Eliquis Plan/VTE VTE Prophylaxis Ordered?: Yes VS, I&O, 24H, Fishbone Vital Signs/I&O Vital Signs Date Time Temp Pulse Resp B/P (MAP) Pulse Ox O2 Delivery O2 Flow Rate FiO2 08/22/20 20:10 98.4 58 19 115/77 (90) 96 Room Air Laboratory Data 24H LABS Laboratory Tests 2 08/22/20 11:44: Immature Granulocyte % (Auto) 0.5, Neutrophils (%) (Auto) 90.4H, Lymphocytes (%) (Auto) 3.9L, Monocytes (%) (Auto) 4.0, Eosinophils (%) (Auto) 0.8, Basophils (%) (Auto) 0.4, Neutrophils # (Auto) 9.9H, Lymphocytes # (Auto) 0.4L, Monocytes # (Auto) 0.4, Eosinophils # (Auto) 0.1, Basophils # (Auto) 0.0, Nucleated Red Blood Cells % (auto) 0.0, Anion Gap 7L, Glomerular Filtration Rate 44.2, Calcium Level 8.9, Total Bilirubin 1.1H, Direct Bilirubin 0.3H, Aspartate Amino Transf (AST/SGOT) 24, Alanine Aminotransferase (ALT/SGPT) 23, Alkaline Phosphatase 185H, Total Creatine Kinase 61, Creatine Kinase MB 1.8, Creatine Kinase MB Relative Index 2.95, Troponin I 0.03, Total Protein 7.2, Albumin 3.6, Albumin/Globulin Ratio 1.0 08/22/20 11:45: Lactic Acid Level 2.2*H 08/22/20 12:19: Procalcitonin <0.05 08/22/20 12:35: Urine Color YELLOW, Urine Appearance HAZY, Urine pH 5.0, Urine Specific [place] 1.017, Urine Protein NEGATIVE, Urine Glucose (UA) NEGATIVE, Urine Ketones NEGATIVE, Urine Blood 1+H, Urine Nitrite NEGATIVE, Urine Bilirubin NEGATIVE, Urine Urobilinogen 0.2, Urine Leukocyte Esterase NEGATIVE, Urine WBC (Auto) 3, Urine RBC (Auto) 2, Urine Hyaline Casts (Auto) 0, Urine Bacteria (Auto) NEGATIVE, Urine Squamous Epithelial Cells 0, Urine Mucus (Auto) SMALL, Urine Sperm (Auto) 08/22/20 15:01: Coronavirus (COVID-19)(PCR) NEGATIVE, Influenza Type A (RT-PCR) NEGATIVE, Influenza Type B (RT-PCR) NEGATIVE, Respiratory Syncytial Virus (PCR) NEGATIVE 08/22/20 18:02: Prothrombin Time 15.7H, Prothromb Time International Ratio 1.22, Lactic Acid Followup at 4 Hours 1.2 08/22/20 18:07: Blood Gas Bicarbonate Standard 23.8, Arterial Blood pH 7.436, Arterial Blood Partial Pressure CO2 34.9L, Arterial Blood Partial Pressure O2 68.7L, Arterial Blood Total CO2 24.0, Arterial Blood HCO3 23.0, Arterial Blood Base Excess -0.8, Arterial Blood Oxygen Saturation 93.9L CBC/BMP Laboratory Tests 08/22/20 11:44 Microbiology Microbiology 08/22/20 Blood Culture, Received Pending 08/22/20 Blood Culture, Received Pending MONO MAC Aug 22, 2020 21:40
[2020-08-22 21:54] LABS: HEMATOCRIT 37.6 % (42.0-52.0); HEMOGLOBIN 12.1 g/dl (13.5-17.5); MEAN CORPUSCULAR HGB CONC 32.2 g/dl (32.0-36.5); MEAN CORPUSCULAR VOLUME 93.1 fl (80.0-96.0); PLATELET COUNT, AUTOMATED 154 10^3/uL (150-450); RED BLOOD COUNT 4.04 10^6/uL (4.30-6.10); WHITE BLOOD COUNT 12.5 10^3/uL (4.0-10.0)
--- NOTE | 2020-08-22 21:59 | REPVR ---
PROCEDURE INFORMATION: Exam: CT Head Without Contrast Exam date and time: 08/22/2020 9:47 PM Age: 85 years old Clinical indication: Other: Unknown; Additional info: Stroke TECHNIQUE: Imaging protocol: Computed tomography of the head without contrast. Radiation optimization: All CT scans at this facility use at least one of these dose optimization techniques: automated exposure control; mA and/or kV adjustment per patient size (includes targeted exams where dose is matched to clinical indication); or iterative reconstruction. Other technique: STROKE PROTOCOL was implemented. COMPARISON: CT Head without contrast 12/19/2018 7:25 AM FINDINGS: Brain: Chronic right frontal lobe infarction. There is advanced cerebral atrophy. Changes of chronic white matter microvascular disease are present. No signs of a recent infarction or hemorrhage. No midline shift or mass effect. Cerebral ventricles: There is ex vacuo ventricular enlargement without evidence of obstructive hydrocephalus. Paranasal sinuses: Visualized sinuses are clear. Mastoid air cells: Mastoid air cells are clear. Bones/joints: Unremarkable. No acute fracture. Soft tissues: Skin hattie are noted in the scalp. IMPRESSION: 1. Atrophy and chronic white matter changes. No acute intracranial abnormality. 2. Chronic right frontal lobe infarction. ASSESSMENT: ASPECTS ([place] Stroke Program Early CT Score) is 10. Electronically signed by: Jaydon Garcia On 08/22/2020 21:58:59 PM
[2020-08-22 22:09] LABS: CALCIUM LEVEL 8.5 MG/DL (8.8-10.2); CREATININE FOR GFR 1.61 MG/DL (0.70-1.30); GLOMERULAR FILTRATION RATE 43.5 (>35); POTASSIUM SERUM 4.1 MEQ/L (3.5-5.1)
[2020-08-22] MEDS: DOCUSATE SODIUM 100MG CAPSULE PO SCH (22:26)
[2020-08-22] MEDS: ATORVASTATIN 20 MG TAB PO SCH (22:27)
[2020-08-22] MEDS: ASPIRIN 81MG ENTERIC TABLET PO SCH (22:31)
[2020-08-22] MEDS: CALCITRIOL 0.25 MCG CAP (S0169) PO SCH (22:32)
[2020-08-22] MEDS: APIXABAN 2.5 MG TAB (ELIQUIS) PO SCH (22:33)
[2020-08-22] MEDS: PIPERACILLIN/TAZOBACTAM SOD 4.5 GM in D5W MINI-BAG PLUS 50 ML IV SCH (22:34)
[2020-08-23] VITALS: BP 114/65
[2020-08-23 04:00] VITALS: BP 120/57
[2020-08-23] MEDS: PIPERACILLIN/TAZOBACTAM SOD 4.5 GM in D5W MINI-BAG PLUS 50 ML IV SCH ×2 (05:09→10:46)
[2020-08-23 07:14] LABS: HEMATOCRIT 36.7 % (42.0-52.0); HEMOGLOBIN 11.7 g/dl (13.5-17.5); MEAN CORPUSCULAR HEMOGLOBIN 29.8 pg (27.0-33.0); MEAN CORPUSCULAR HGB CONC 31.9 g/dl (32.0-36.5); MEAN CORPUSCULAR VOLUME 93.4 fl (80.0-96.0); PLATELET COUNT, AUTOMATED 150 10^3/uL (150-450); RED BLOOD COUNT 3.93 10^6/uL (4.30-6.10); WHITE BLOOD COUNT 8.1 10^3/uL (4.0-10.0)
[2020-08-23 07:21] VITALS: BP 108/58
--- NOTE | 2020-08-23 07:33 | ECGEPIP ---
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
[2020-08-23 08:45] LABS: BILIRUBIN,TOTAL 1.7 MG/DL (0.2-1.0); CALCIUM LEVEL 8.4 MG/DL (8.8-10.2); CREATININE FOR GFR 1.58 MG/DL (0.70-1.30); GLOMERULAR FILTRATION RATE 44.5 (>35); MAGNESIUM LEVEL 2.2 MG/DL (1.8-2.4); POTASSIUM SERUM 3.8 MEQ/L (3.5-5.1); TOTAL PROTEIN 6.3 GM/DL (6.4-8.2)
[2020-08-23] MEDS: APIXABAN 2.5 MG TAB (ELIQUIS) PO SCH ×2 (09:25→20:09)
[2020-08-23] MEDS: DOCUSATE SODIUM 100MG CAPSULE PO SCH ×2 (09:25→20:08)
[2020-08-23] MEDS: PANTOPRAZOLE 40MG TAB (PROTONIX) PO SCH (09:25)
[2020-08-23] MEDS: FUROSEMIDE 40 MG TAB PO SCH (09:25)
--- NOTE | 2020-08-23 09:52 | IPNPDOC ---
Text Note Date of Service The patient was seen on 08/23/20. NOTE Subjective: Patient was seen and examined this morning at bedside. Tells me she's feeling a little better than yesterday. He remembered me but did not remember my name. He was reported to me this evening that he had a possible left-sided facial droop CT head was ordered was negative he had no neurological deficits on exam by night team case was discussed with neurologist recommended an MRI which is still pending. The patient remembers the events of last night but his memory is a little blurry. He denies any chest pain or shortness of breath denies fevers or chills. He reports some chills last night. Denies any weakness of her lower extremities or speech difficulty or swallowing difficulty. Objective: Constitutional: Awake and alert, in no apparent distress. Appears elderly, frail and weak. ENT: Sclera are clear. Mucosa is moist. Respiratory: Lungs diminished breath sounds bilaterally. No respiratory distress. Noted to be saturating at 94% on room air Cardiovascular: Paced rate heart rate 60 on monitor. Midsternal scar. Gastrointestinal: Abdomen is soft, non distended, non tender, BS present. Musculoskeletal: No lower extremity edema. Wearing compression stockings. Neurologic: No focal neurological deficit. No facial droop observed. Cranial nerves intact. Mental Status: A&O x3, normal affect. Skin: Scalp with hattie post Mohs procedure. Left nose s/p biopsy. Assessment/plan: 85-year-old male with an extensive cardiac history of multiple skin cancers presents because of a one-day history of chills at home and shortness of breath found to be febrile to 102.4 in the ED without it clear etiology. Admitted for further medical workup and management. # Fever: No clear source of infection. UA ok. CXR ok. Procalcitonin negative <0.05 initially on admission however it had gone up to 0.85. Mild leukocytosis on admit 10.9. Mild LA 2.2. COVID negative. Resp panel negative. Empirically on IV vanc and zosyn. BCx pending. febrile to 102.4 on admit. Low grade 99.6 today. # Dyspnea: Hypoxia noted to be saturating at 84% on room air in the ED. Suppl emental oxygen. No clear cause. Doesn't appear to be fluid overloaded. Obtain new echo. ABG ok. Appears to have resolved, 94% on room air today. Respiratory panel negative. # Atrial fibrillation: Continue eliquis for anticoagulation. Pacemaker in place. Follows with Dr. Chris # CHFpEF: Not in exacerbation. Last echo 2018 showing 60% EF. Continue home Lasix. Obtain new echo. # CKD: Close to baseline. Avoid nephrotoxins if possible. Continue calcitriol. Monitor renal function # CAD s/p CABG: Continue aspirin and statin. # PVD with stenting: Continue aspirin and statin. 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 # CVA: continue ASA, statin, eliquis # Hyperlipidemia: Continue statin # Obesity: BMI 33. Complicating care # DVT prophylaxis: Eliquis CODE STATUS: DNR/DNI - confirmed with and patient A [facility] Didi SORTO I+O VSDidi I+O Laboratory Tests 08/22/20 11:44 08/22/20 21:40 08/23/20 06:55 Vital Signs Date Time Temp Pulse Resp B/P (MAP) Pulse Ox O2 Delivery O2 Flow Rate FiO2 08/23/20 07:21 99.4 60 20 108/58 (75) 96 Room Air I&O- Last 24 Hours up to 6 AM0 08/23/20 06:00 Intake Total 1950 ml Output Total 150 ml Balance 1800 ml CECIL FARMER MD Aug 23, 2020 09:52
[2020-08-23 11:22] VITALS: BP 110/57
[2020-08-23] MEDS ORDERED: VANCOMYCIN HCL 1,000 MG, VIAL MATE ADAPTER 1 EACH in NS 250 ML IV SCH (12:00)
[2020-08-23] MEDS ORDERED: VANCOMYCIN HCL 500 MG in D5W MINI-BAG PLUS 100 ML IV ONE (15:00)
[2020-08-23 15:35] VITALS: BP 114/59
--- NOTE | 2020-08-23 17:52 | ECGEPIP ---
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
[2020-08-23] MEDS: cefTRIAXone SOD 2 GM in D5W MINI-BAG PLUS 50 ML IV SCH (17:56)
[2020-08-23 20:00] VITALS: BP 140/68
[2020-08-23] MEDS: CALCITRIOL 0.25 MCG CAP (S0169) PO SCH (20:08)
[2020-08-23] MEDS: ATORVASTATIN 20 MG TAB PO SCH (20:08)
[2020-08-23] MEDS: ASPIRIN 81MG ENTERIC TABLET PO SCH (20:08)
[2020-08-24] VITALS: BP 116/64
[2020-08-24 04:29] VITALS: BP 137/73
[2020-08-24 06:22] LABS: BASO # 0.1 10^3/uL (0.0-0.2); BASO % 0.9 % (0.0-1.0); EOS # 0.3 10^3/uL (0.0-0.5); EOS % 5.8 % (0.0-3.0); HEMATOCRIT 38.3 % (42.0-52.0); HEMOGLOBIN 11.8 g/dl (13.5-17.5); LYMPH # 0.6 10^3/uL (1.5-5.0); LYMPH % 11.2 % (24.0-44.0); MEAN CORPUSCULAR HEMOGLOBIN 28.7 pg (27.0-33.0); MEAN CORPUSCULAR HGB CONC 30.8 g/dl (32.0-36.5); MEAN CORPUSCULAR VOLUME 93.2 fl (80.0-96.0); MONO # 0.6 10^3/uL (0.0-0.8); MONO % 10.3 % (2.0-8.0); NEUTROPHILS # 4.1 10^3/uL (1.5-8.5); NEUTROPHILS % 71.3 % (36.0-66.0); PLATELET COUNT, AUTOMATED 146 10^3/uL (150-450); RED BLOOD COUNT 4.11 10^6/uL (4.30-6.10); WHITE BLOOD COUNT 5.7 10^3/uL (4.0-10.0)
[2020-08-24 06:47] LABS: CALCIUM LEVEL 8.9 MG/DL (8.8-10.2); CREATININE FOR GFR 1.56 MG/DL (0.70-1.30); GLOMERULAR FILTRATION RATE 45.1 (>35); POTASSIUM SERUM 3.8 MEQ/L (3.5-5.1)
--- NOTE | 2020-08-24 07:40 | ECHO ---
ECHOCARDIOGRAM DATE OF PROCEDURE: 08/23/2020 Age: 85 Gender: M Height: 72 inches Weight: 244 pounds Body Surface Area: 2.32 meters squared PATIENT LOCATION: Inpatient/PCU - Room 3213 REFERRING PHYSICIAN: Dr. Vincent Rosas INDICATION: Dyspnea MEASUREMENTS: 2D Measurements: RV - 4.4 cm LV - 4.9 cm Septum 1.5 cm Posterior wall 1.5 cm Aortic Root 4.2 cm LA - 5.0 cm LVEF 45% Doppler Measurements: AV - 1.15 m/s LVOT - 0.82 m/s LVOT diameter 2.3 cm MV-E 77 Early mitral deceleration time 224 msec E prime medial, A prime medial, E prime lateral Average E/E prime ratio /PCWP - mmHg PV - 0.75 m/s Pulmonary artery acceleration time 121 msec RVSP 35 mmHg IVC - Could not be visualized. We estimated his central venous pressure by standard convention with 10 mmHg COMMENTS: Underlying atrial fibrillation with consistent ventricular paced rhythm. Paced QRS complexes with left bundle branch block configuration. M-mode and 2-dimensional echocardiography was performed with pulse, continuous wave, color flow and no tissue Doppler study. Moderate concentric left ventricular hypertrophy with septal and apical wall motion abnormality related to right ventricular pacing but otherwise left ventricular wall segments moved normally. At least mild impairment of global resting systolic function. Prominently dilated left atrium. At least mildly dilated right ventricle with normal right ventricular free wall motion and Doppler evidence of at least mild pulmonary hypertension. Prominently dilated right atrium but could not visualize his inferior vena cava to more accurately estimate his central venous pressure. Mildly dilated aortic root. Moderate aortic valvular sclerosis without stenosis but mild insufficiency. Mitral annular calcification with slightly thickened leaflets with adequate leaflet excursion and no posterior systolic buckling; at least mild to possibly moderate mitral insufficiency. Normal-appearing tricuspid valve with trace insufficiency. Pacing leads could be visualized traversing the right heart structures. Miniscule pericardial effusion.
[2020-08-24 08:00] VITALS: BP 134/62
--- NOTE | 2020-08-24 08:25 | REPVR ---
PROCEDURE INFORMATION: Exam: US Abdomen, Limited; Right Upper Quadrant Exam date and time: 08/24/2020 11:51 AM Age: 85 years old Clinical indication: Abnormal findings; Abnormal lab test; Elevated liver enzymes; Additional info: Elevated bilirubin TECHNIQUE: Imaging protocol: US abdomen. Real time ultrasound with image documentation. Limited exam focused on the right upper quadrant. COMPARISON: CT ABD PELVIS W/O CONTRAST 08/22/2020 1:59 PM FINDINGS: Liver: Normal. No masses. Gallbladder: Cholelithiasis is present. The gallbladder wall is normal, measuring 2.6 mm in thickness. Negative sonographic Arechiga sign. Common bile duct: The common bile duct is normal measuring 4.5 mm in diameter. No choledocholithiasis. Pancreas: Visualized pancreas is unremarkable. Right kidney: The right kidney measures 10.9 x 4.7 x 5.2 cm No hydronephrosis. A small simple cortical cyst is seen projecting off the lower pole right kidney measuring 2.7 x 2.3 x 2.5 cm. IMPRESSION: 1. Cholelithiasis, with no evidence of acute cholecystitis or obstructive cholangiopathy. 2. A small simple cortical cyst is seen projecting off the lower pole right kidney measuring 2.7 x 2.3 x 2.5 cm. Electronically signed by: John Dawson On 08/24/2020 08:24:39 AM
[2020-08-24] MEDS: PANTOPRAZOLE 40MG TAB (PROTONIX) PO SCH (09:19)
[2020-08-24] MEDS: FUROSEMIDE 40 MG TAB PO SCH (09:19)
[2020-08-24] MEDS: DOCUSATE SODIUM 100MG CAPSULE PO SCH ×2 (09:19→19:50)
[2020-08-24] MEDS: APIXABAN 2.5 MG TAB (ELIQUIS) PO SCH ×2 (09:20→19:50)
[2020-08-24 12:00] VITALS: BP 116/56
[2020-08-24] MEDS ORDERED: VANCOMYCIN HCL 500 MG in D5W MINI-BAG PLUS 100 ML IV SCH (13:00)
--- NOTE | 2020-08-24 13:00 | IPNPDOC ---
Text Note Date of Service The patient was seen on 08/24/20. NOTE Subjective: Patient was seen and examined this morning at bedside. Feels about the same as yesterday. Denies any chest pain or shortness of breath. Reports feeling chills around midnight but doesn't think he was feverish.. There is no acute overnight events reported to me. I notified the dermatology clinic last evening that he is due to have his stable on scalp removed after his Mohs procedure. Objective: Constitutional: Awake and alert, in no apparent distress. Appears elderly, frail and weak. ENT: Sclera are clear. Mucosa is moist. Respiratory: Lungs diminished breath sounds bilaterally. No respiratory distress. Noted to be saturating at 98% on room air Cardiovascular: Paced rate heart rate 60 on monitor. Midsternal scar. Gastrointestinal: Abdomen is soft, non distended, non tender, BS present. Musculoskeletal: No lower extremity edema. Wearing compression stockings. Neurologic: No focal neurological deficit. No facial droop observed. Cranial nerves intact. Mental Status: A&O x3, normal affect. Skin: Scalp with hattie post Mohs procedure. Left nose s/p biopsy. Assessment/plan: 85-year-old male with an extensive cardiac history of multiple skin cancers presents because of a one-day history of chills at home and shortness of breath found to be febrile to 102.4 in the ED without it clear etiology. Admitted for further medical workup and management. # Fever: No clear source of infection. UA ok. CXR ok. Procalcitonin negative <0.05 initially on admission however it had gone up to 0.85. Mild leukocytosis on admit 10.9. Mild LA 2.2. COVID negative. Resp panel negative. Empirically on IV vanc and zosyn initially which was switched to IV ceftriaxone. BCx preliminary results negative. febrile to 102.4 on admit. Low grade 99.[address] Hill, suggested obtaining a Lyme titer which I ordered is currently pending. # Dyspnea: Hypoxia noted to be saturating at 84% on room air in the ED. Supplemental oxygen. No clear cause. Doesn't appear to be fluid overloaded. Fu new echo waiting to be dictated. ABG ok. Appears to have resolved, 94% on room air today. Respiratory panel negative. # Atrial fibrillation: Continue eliquis for anticoagulation. Pacemaker in place. Follows with Dr. Chris # CHFpEF: Not in exacerbation. Last echo 2018 showing 60% EF. Continue home Lasix. Awaiting for new echo report. # CKD: Close to baseline. Avoid nephrotoxins if possible. Continue calcitriol. Monitor renal function # CAD s/p CABG: Continue aspirin and statin. # PVD with stenting: Continue aspirin and statin. 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 # CVA: continue ASA, statin, eliquis # Hyperlipidemia: Continue statin # Obesity: BMI 33. Complicating care # DVT prophylaxis: Eliquis CODE STATUS: DNR/DNI - confirmed with and patient A [facility] VS,Didi, I+O VS, Didi, I+O Laboratory Tests 08/24/20 06:10 Vital Signs Date Time Temp Pulse Resp B/P (MAP) Pulse Ox O2 Delivery O2 Flow Rate FiO2 08/24/20 12:00 97.7 56 20 116/56 (76) 94 Room Air I&O- Last 24 Hours up to 6 AM 08/24/20 06:00 Intake Total 910 ml Output Total 200 ml Balance 710 ml CECIL FARMER MD Aug 24, 2020 13:00
[2020-08-24 16:00] VITALS: BP 119/62
[2020-08-24] MEDS: cefTRIAXone SOD 2 GM in D5W MINI-BAG PLUS 50 ML IV SCH (19:48)
[2020-08-24] MEDS: ATORVASTATIN 20 MG TAB PO SCH (19:50)
[2020-08-24] MEDS: ASPIRIN 81MG ENTERIC TABLET PO SCH (19:50)
[2020-08-24] MEDS: CALCITRIOL 0.25 MCG CAP (S0169) PO SCH (19:50)
[2020-08-24 20:00] VITALS: BP 140/89
[2020-08-25] VITALS: BP 156/90
[2020-08-25 04:00] VITALS: BP 134/75
[2020-08-25 07:00] LABS: BASO % 0.6 % (0.0-1.0); EOS # 0.4 10^3/uL (0.0-0.5); EOS % 5.1 % (0.0-3.0); HEMATOCRIT 38.2 % (42.0-52.0); LYMPH # 0.8 10^3/uL (1.5-5.0); LYMPH % 12.2 % (24.0-44.0); MEAN CORPUSCULAR HEMOGLOBIN 29.2 pg (27.0-33.0); MEAN CORPUSCULAR HGB CONC 31.4 g/dl (32.0-36.5); MEAN CORPUSCULAR VOLUME 92.9 fl (80.0-96.0); MONO # 0.7 10^3/uL (0.0-0.8); MONO % 10.3 % (2.0-8.0); NEUTROPHILS # 4.9 10^3/uL (1.5-8.5); NEUTROPHILS % 71.5 % (36.0-66.0); PLATELET COUNT, AUTOMATED 158 10^3/uL (150-450); RED BLOOD COUNT 4.11 10^6/uL (4.30-6.10); WHITE BLOOD COUNT 6.8 10^3/uL (4.0-10.0)
[2020-08-25 07:20] LABS: CALCIUM LEVEL 8.8 MG/DL (8.8-10.2); CREATININE FOR GFR 1.48 MG/DL (0.70-1.30); POTASSIUM SERUM 3.7 MEQ/L (3.5-5.1)
[2020-08-25 07:21] LABS: ALBUMIN 2.8 GM/DL (3.2-5.2); BILIRUBIN,TOTAL 0.3 MG/DL (0.2-1.0); TOTAL PROTEIN 6.2 GM/DL (6.4-8.2)
[2020-08-25 08:00] VITALS: BP 145/68
[2020-08-25] MEDS: DOCUSATE SODIUM 100MG CAPSULE PO SCH (08:48)
[2020-08-25] MEDS: FUROSEMIDE 40 MG TAB PO SCH (08:48)
[2020-08-25] MEDS: PANTOPRAZOLE 40MG TAB (PROTONIX) PO SCH (08:48)
[2020-08-25] MEDS: APIXABAN 2.5 MG TAB (ELIQUIS) PO SCH (08:48)
--- NOTE | 2020-08-25 09:29 | REP ---
INDICATION: ? pneumonia COMPARISON: None TECHNIQUE: Axial noncontrast images from the thoracic inlet to the upper abdomen with coronal and sagittal reformations. This CT examination was performed using the following dose reduction techniques: Automated exposure control, adjustment of mA and/or kv according to the patient's size, and use of iterative reconstruction technique. FINDINGS: Cardiomegaly is appreciated evidence for prior CABG and dual lead pacemaker. The pulmonary vasculature appears moderately prominent with mild cephalization raising the possibility of early pulmonary vascular congestion. Thoracic aorta demonstrates atherosclerotic changes without aneurysm. No pericardial effusion. The lung zuniga demonstrate scattered chronic appearing interstitial changes. No consolidation, effusion, or pneumothorax. Tracheobronchial tree is patent. No adenopathy noted. IMPRESSION: 1. Cardiomegaly and findings to suggest mild chronic/early pulmonary vascular congestion. Correlation is recommended. 2. No consolidation or effusion. <Electronically signed by Jewel Parisi > 08/25/20 0950
[2020-08-25] MEDS ORDERED: CEFD1CAP8 PO (10:11)
--- NOTE | 2020-08-25 11:02 | DSES ---
DISCHARGE SUMMARY DATE OF ADMISSION: 08/22/2020 DATE OF DISCHARGE: 08/25/2020 PRINCIPAL DIAGNOSIS: Febrile illness suspected pulmonary infection. SECONDARY DIAGNOSES: 1. Dyspnea with hypoxemia. 2. Atrial fibrillation chronic. 3. Congestive heart failure with preserved ejection fraction. 4. Dementia. 5. Chronic kidney disease stage III. 6. Coronary artery disease. 7. History of peripheral arterial disease. 8. Recent skin cancer resection with Mohs procedure. 9. History of stroke. 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 Berry for follow-up of a Mohs procedure, when he developed chills. His chills became worse as they came to the electrocardiograph technician office, so he came to the emergency room where he was found to have a temperature of 102.4 and to be hypoxemic with an O2 saturation of 84%. He was admitted for further workup. HOSPITAL COURSE: He was admitted to a PACU bed. His hypoxemia quickly resolved. His fever also resolved. No etiology for the fever was ever found. His cultures were negative. Blood, urine, and chest x-ray were unremarkable. CT of the chest I did today showed no infiltrate. His procalcitonin was elevated and he responded quickly to Rocephin, so I suspect he probably had some type of respiratory infection that resolved quickly with antibiotic therapy. On the day of discharge, he and his family are eager for him to come home. He has dementia. He has required a sitter. They would like to have him home. DISCHARGE PHYSICAL EXAMINATION: GENERAL APPEARANCE: He is in no distress whatsoever. He is alert and conversant. LUNGS: Clear. HEART: Regular rate and rhythm. ABDOMEN: Soft and nontender. EXTREMITIES: No peripheral edema. Moves arms and legs with equal strength. LABORATORY DATA: Today white count is 6.8 and highest white count was 12.5, which was present on admission. Hemoglobin 12, platelets 158,000. Sodium 142, potassium 3.7, BUN 21, creatinine 1.45, GFR 48 which is stable. As noted, blood cultures were negative. Respiratory panel was negative. It does not look like he got his urine cultured, but urine dip stick was negative. He has a Lyme screen, which is pending. DISCHARGE DISPOSITION: He is discharged home in improved and stable condition. He will follow-up with his primary care provider in a week. Lyme screen is still pending and needs to be followed up upon discharge. I spoke with his , Alice, who used to be my high pressure cleaner and she is aware of his discharge, as well as the outstanding Lyme test. DISCHARGE MEDICATIONS: 1. Eliquis 2.5 mg b.i.d. 2. Aspirin 81 mg daily. 3. Atorvastatin 40 mg daily. 4. Calcitriol 0.5 mg q. h.s. 5. Benadryl as needed. 6. Flonase nasal spray. 7. Furosemide 40 mg daily. 8. Claritin 10 mg. 9. SlowMag one q. h.s. 10. Multivitamin. 11. Protonix 40 mg daily. 12. Cefdinir 300 mg b.i.d. for five days (allergy list shows cephalexin, but he tolerated Rocephin without any difficulty).
[2020-08-25 17:18] LABS: Lyme Disease IgG/IgM Antibodie <0.91 ISR (0.00-0.90); Lyme Disease IgM Ab Quantitati <0.80 index (0.00-0.79)
== END 2020-08-25 12:08 | disposition home health service (06) | DRG 206 ==
LOC: M ED 11:21 → M ED INP 17:20 → ENRESERV 19:04 → M PCU 20:14
PROVIDERS: ADMIT Family Medicine; ATTEND Family Medicine
DX: J98.8 Other specified respiratory disorders (principal); I50.32 Chronic diastolic (congestive) heart failure; I25.10 Atherosclerotic heart disease of native coronary artery without angina pectoris; I48.91 Unspecified atrial fibrillation; N18.9 Chronic kidney disease, unspecified; K21.9 Gastro-esophageal reflux disease without esophagitis; I73.9 Peripheral vascular disease, unspecified; R51.9 Headache, unspecified; E78.5 Hyperlipidemia, unspecified; R29.810 Facial weakness; E66.9 Obesity, unspecified; R09.02 Hypoxemia; C44.40 Unspecified malignant neoplasm of skin of scalp and neck; Z66 Do not resuscitate; Z98.41 Cataract extraction status, right eye; Z98.42 Cataract extraction status, left eye; Z95.1 Presence of aortocoronary bypass graft; Z95.820 Peripheral vascular angioplasty status with implants and grafts; F03.90 Unspecified dementia, unspecified severity, without behavioral disturbance, psychotic disturbance, mood disturbance, and anxiety; Z86.73 Personal history of transient ischemic attack (TIA), and cerebral infarction without residual deficits; Z68.33 Body mass index [BMI] 33.0-33.9, adult; Z79.01 Long term (current) use of anticoagulants; Z20.822 Contact with and (suspected) exposure to COVID-19; Z79.82 Long term (current) use of aspirin; Z79.899 Other long term (current) drug therapy; Z88.1 Allergy status to other antibiotic agents

== ENCOUNTER → 2020-09-20 | Outpatient (CLI) | payer MEDICARE, OTHER ==
[~2020-09-20] MED LIST changes: +CEFD1CAP8 PO; +DOXY100T; +ROCA0.5C PO
--- NOTE | 2020-09-20 16:56 | RADONC.CN ---
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 Berry. He is viewed as a marginal surgical candidate and is seen today for consideration of RT as an alternative to surgery. Diagnosis/Treatment History Oncologic History 2014 Locally advanced/metastatic cutaneous SCC s/p WLE with Dr. Hoff @ [facility] Subsequent kecia recurrence, s/p RT with Dr. Larios @ [facility] Developed lung metastases, started cetuximab without response @ [facility], started [facility] ytruda q3w from [id number] 2020 developed a left nasal flat pigmented skin lesion (while on Keytruda at reduced frequency q6w) 08/15/20 Shave biopsy of lesion Dr. Berry: Melanoma 0.4 mm thickness (cT1a) No ulceration No mitoses No LVI No PNI In background of pigmented basal cell carcinoma Interval History Here with and granddaughter. They have consulted with surgeons in [place] who offered resection and flap reconstruction. They are hesitant about this. Bayron offers no complaints when asked. States he has no facial pain that the lesion on his nose never hurt or bled. He has no nosebleeds or history of nasal trauma. They report he tolerated keytruda without any apparent difficulties. Reason for discontinuation was prison of his prior medical oncologist. New medical oncologist recommended decreasing the frequency of doses and then stopping the medication due to continued remission of the SCC. Past Medical History: CAD CHF CKD Dementia PVD TRISTA CVA Thrombocytopenia Past Surgical History: Pacemaker Family History: No family cancer history Social History: Non smoker Does not drink Allergies / Meds Allergies: Coded Allergies: cephalexin (Verified Allergy, Intermediate, HIVES, 08/25/20) Note: received ceftriaxone 09/12 w/o side effect aztreonam (Verified Allergy, Mild, rash, 09/20/20) had UTI while in [place]- report the allergy ciprofloxacin (Verified Allergy, Mild, RASH, 08/22/20) Home Meds Active Scripts Cefdinir (Cefdinir) 300 Mg Capsule, 300 MG PO BID for 5 Days, #10 CAP Prov:Daniel Jurado MD 08/25/20 Reported Medications Calcitriol (Rocaltrol) 0.5 Mcg Capsule, 0.5 MCG PO QHS, CAP 08/22/20 Diphenhydramine HCl (Banophen) 25 Mg Tablet, 25 MG PO DAILY PRN for ALLERGY SYMPTOMS 12/19/18 Fluticasone Propionate (Fluticasone Propionate) 16 Gm [place].susp, 1 SPRAY NARES BID PRN for CONGESTION 12/19/18 Loratadine (Loratadine) 10 Mg Tablet, 10 MG PO DAILY 12/19/18 Apixaban (Eliquis) 2.5 Mg Tablet, 2.5 MG PO BID 12/19/18 Atorvastatin Calcium (Atorvastatin Calcium) 40 Mg Tab, 40 MG PO QHS, TAB 11/01/15 Magnesium Chloride (Slow-Mag) 1 Tab Tab, 1 TAB PO QHS, TAB 08/17/15 Aspirin (Aspirin EC) 81 Mg Tabec, 81 MG PO QHS 08/17/15 Multivitamins (Thera M Plus Tablet) 1 Tab Tab, 1 TAB PO DAILY, TAB 08/17/15 Furosemide (Lasix) 40 Mg Tab, 40 MG PO DAILY, TAB 08/17/15 Pantoprazole Sodium (Protonix) 40 Mg Tab, 40 MG PO DAILY, TAB 08/17/15 Review of Systems Constitutional: Denies: Chills, Fever, Night Sweats Eyes: Denies: Pain, Vision change HEENT: Denies: Head Aches, Dysphagia, Sore Throat Pulmonary: Denies: Dyspnea, Cough Cardiovascular: Denies: Chest Pain, Palpitations, Edema Musculoskeletal: Denies: Neck pain, Back pain Neurological: Denies: Weakness, Numbness, Incoordination Psych: Reports: Mood Normal, Memory Issues; Denies: Thoughts of Self Harm Vital Signs Wt 240 lbs T 96.6 P 60 RR 18 BP 109/73 O2 95% Pain 0 Fatigue 0 General Exam: Positive: Alert, Cooperative, No Acute Distress Eye Exam: Positive: PERRLA, EOMI ENT EXAM: Positive: Other ENT (Left nasal skin involving ala but short of nasofacial sulcus there is a 2 cm circular shave biopsy site which is healed, there is pigmented lesion at the anterior margin. Internally there is no ulceration. There is no pre-auricular, parotid, perifacial, or cervical adenopathy on exam. There are no intraoral lesions appreciated. ) Chest Exam: Positive: Clear to auscultation Heart Exam: Positive: Rate Normal Abdomen Exam: Positive: Soft Extremity Exam: Positive: Edema Skin Exam: Positive: Nl turgor and temperature, Lesion (Scattered AK lesions chest, right chest with purpura and swelling at site of recently removed mediport. Arms with SK and AK) Neuro Exam: Positive: Normal Gait, Normal Speech, Cranial Nerves 3-12 NL Psych Exam: Positive: Mental status NL Diagnostic and Laboratory Diagnostic Review Radiologic images, relevant labs and pathology reports were personally reviewed and discussed with Mr. Castle. Assessment and Plan Impression Mr. 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 Berry. He is viewed as a marginal surgical candidate and is seen today for consideration of RT as an alternative to surgery. Stage Melanoma of left nasal skin [id number] stage IA Performance Status ECOG 2 Plan We had an extensive discussion with Mr. Castle regarding the diagnosis at hand and available therapeutic options. I reviewed his extensive skin cancer history with metastatic cutaneous SCC which is in remission s/p trimodality treatment @ [facility] and [facility]. He has recently stopped keytruda which is somewhat coincident with development of the melanoma on his nose. I raised that keytruda is a highly effective treatment for melanoma and that he perhaps had a small lesion which was in response from the immunotherapy and the act of discontinuing keytruda (preceded by institution of q6w dosing, which was around the time the lesion appeared) may be what precipitated the rapid development of the tumor. I explained that keytruda would likely be an option if he either recurred s/p local therapy, or if they opt against any local therapy at all. I discussed that surgical resection is the single best treatment for an early stage melanoma and would be my first recommendation. I do however understand their reticence in light of his comorbidities and vasculopathy to consider surgery. If they opted against surgery as primary treatment then I would offer RT, we discussed a standard fractionated approach of 60-70 Gy in 30-35 fractions with electrons versus a hypofractionated course such as 27 Gy in 3 fractions +/- superficial hyperthermia (waterbath) as per the Royce et al Lancet 1995. The latter demonstrated the best published LC rate for intact melanoma lesions 50- 60%. The toxicity of this regimen was modest even with superficial hyperthermia. In order to respect the nose which is a cartilage structure, I would opt for a 0-7-21 approach to fractions, rather than the 8 day course in the paper. This would entail treatment on day 0, 1 week later on day 7 and then final treatment 2 weeks later on day 21. This would allow for maximal normal tissue repair between fractions, given the mild toxicity of very hypofractionated regimens for non-melanoma skin cancer of the nose with electrons such as 7 Gy x 5 fractions twice weekly I think that the outcomes of the 3 fraction regimen proposed would be similar and well-tolerated. The field will also be quite small, which is an important correlate of low toxicity. I did discuss the anticipated grade 2 radiation dermatitis and the possibilities of late cosmetic compromise and that we do not have data on the feasibility of surgical salvage after primary radiation for melanomas in general. So it is possible that after RT surgery would no longer be an option. We discussed the logistics of receiving radiation therapy in detail including the need for a 1-time planning session. As we left it today, the patient and his family will consider their options and alert me of their decision. All questions were answered to the patient's satisfaction. We instructed the patient that if there were any questions,concerns or changes in clinical status in the interim to contact us. Recommendations Recommended strong consideration of surgery as standard of care treatment for localized melanoma Alternative is RT such as 60-70 Gy in 30-35 fractions, or 27 Gy in 3 fractions (0-7-21 schedule) +/- superficial waterbath hyperthermia Can also ask medical oncology about resuming keytruda discontinuation of which could be the inciting factor for emergence of this lesion Patient will alert us of their decision Billing Statement Total time of [50] minutes was spent preparing for the visit [3], obtaining HPI [12], examining the patient [4], reviewing diagnostic tests [5], discussing management options [10], coordinating care [0], and writing this note [12]. RASHI RIOS MD Sep 20, 2020 16:56
== END ==
LOC: M ONCR 12:53
PROVIDERS: ATTEND General Practice
DX: C43.31 Malignant melanoma of nose (principal); D69.6 Thrombocytopenia, unspecified; F03.90 Unspecified dementia, unspecified severity, without behavioral disturbance, psychotic disturbance, mood disturbance, and anxiety; G47.33 Obstructive sleep apnea (adult) (pediatric); I25.10 Atherosclerotic heart disease of native coronary artery without angina pectoris; I50.9 Heart failure, unspecified; I73.9 Peripheral vascular disease, unspecified; N18.9 Chronic kidney disease, unspecified; Z79.82 Long term (current) use of aspirin; Z79.899 Other long term (current) drug therapy; Z85.118 Personal history of other malignant neoplasm of bronchus and lung; Z85.828 Personal history of other malignant neoplasm of skin; Z86.73 Personal history of transient ischemic attack (TIA), and cerebral infarction without residual deficits; Z88.1 Allergy status to other antibiotic agents; Z88.8 Allergy status to other drugs, medicaments and biological substances; Z92.3 Personal history of irradiation

== ENCOUNTER → 2020-09-27 | Outpatient (CLI) | payer MEDICARE, OTHER ==
--- NOTE | 2020-09-27 13:34 | REP ---
INDICATION: ANEURYSM OF ILIAC ARTERY. COMPARISON: None. TECHNIQUE: Imaging protocol: Computed tomography of the abdomen and pelvis without IV contrast. Contiguous 3 mm thick axial projection images were obtained through the abdomen and pelvis. 2D sagittal and coronal reconstructions were performed. Radiation optimization: All CT scans at this facility use at least one of these dose optimization techniques: automated exposure control; mA and/or kV adjustment per patient size (includes targeted exams where dose is matched to clinical indication); or iterative reconstruction. FINDINGS: Heart and lung bases: Images of the lung bases are limited by respiratory motion artifact. There are no pleural effusions. There is cardiomegaly. There is no pericardial effusion. There is calcific vascular disease of the thoracic aorta and coronary arteries. Status post CABG surgery. There is a bipolar pacemaker. Liver: Normal unenhanced appearance. Gallbladder: Multiple tiny gallstones. Spleen: Normal unenhanced appearance. Pancreas: Benign fatty replacement. Adrenal glands: Normal unenhanced appearance. Kidneys/bladder: There is a 2.1 cm in diameter cyst in the lower pole of the right kidney. There is no nephrolithiasis, ureterolithiasis or hydronephrosis. The urinary bladder has a normal unenhanced appearance. Pelvic structures: Prostate gland measures 5.6 cm in transverse dimension and contains coarse calcifications. The seminal vesicles have a normal unenhanced appearance. There is no free fluid the pelvis. There is no pelvic or inguinal lymphadenopathy. GI tract: There is no significant colonic diverticular disease. There is a normal appendix demonstrated. Abdominal wall and mesentery: There is a midline ventral hernia, containing normal fat, of located 2.9 cm below the xiphoid process. There is a 4.6 cm in diameter midline ventral hernia, containing a loop of mesenteric small bowel, approximately 10.8 cm below the xiphoid process. There is a 3.8 cm in diameter supraumbilical ventral hernia containing a loop of mesenteric small bowel. There are bilateral inguinal hernias, containing normal fat, measuring 3.0 cm in diameter on the right and 3.6 cm in diameter on the left. There is no mesenteric or retroperitoneal lymphadenopathy. Abdominal aorta and vascular structures: There is calcific vascular disease of the abdominal aorta. There is ectasia of the infrarenal abdominal aorta without aneurysm. 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 There is a fusiform aneurysm of the right common iliac artery, measuring 2.8 cm in diameter and 4.2 cm in length. There is aneurysmal dilatation of the left internal iliac artery measuring 2.4 cm in diameter. There is aneurysmal dilatation of the right internal iliac artery, measuring 2.1 cm in diameter. Bony structures: There is multilevel degenerative disc disease of the lower thoracic and lumbar spine with levoscoliosis centered at the T12 level and dextroscoliosis centered at the L4 level. There is mild arthritis of both SI joints and both hips. IMPRESSION: 1. 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 2. 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 3. There are 3 supraumbilical midline ventral hernias containing portions of the gastrointestinal tract. 4. There are bilateral inguinal hernias containing fat. 5. Prostatomegaly. 6. Cholelithiasis. 7. Calcific vascular disease of the thoracoabdominal aorta and coronary arteries. 8. Cardiomegaly. Status post CABG surgery and pacemaker placement. 9. Thoracolumbar degenerative disc disease with scoliosis as described. <Electronically signed by Shade Gann > 09/27/20 [id number]
== END ==
LOC: M PLAIMG 09:44
PROVIDERS: ATTEND Surgery Vascular Surgery
DX: I72.3 Aneurysm of iliac artery (principal)

== ENCOUNTER 2020-10-16 10:09 | Outpatient (RCR) | payer MEDICARE, OTHER ==
[~2020-10-16 10:09] MED LIST changes: -CEFD1CAP8 PO; +CEFD300C41 PO; -DOXY100C PO; +DOXY100C3 PO
[2021-01-04] MEDS ORDERED: BACT800T5 PO (15:07)
[2021-01-04] MEDS ORDERED: TRIA1OI TOP (15:07)
[2021-02-01] MEDS ORDERED: CLOB0.0512 TOP (15:20)
== END 2020-10-23 ==
LOC: M ONCR 10:09
PROVIDERS: ATTEND General Practice
DX: C43.31 Malignant melanoma of nose (principal)

== ENCOUNTER 2020-11-15 12:26 | Outpatient (RCR) | payer MEDICARE, OTHER ==
[~2020-11-15 12:26] MED LIST changes: +CEFD1CAP8 PO; -CEFD300C41 PO
== END 2020-11-22 ==
LOC: M ONCR 12:26
PROVIDERS: ATTEND General Practice
DX: C43.31 Malignant melanoma of nose (principal)

== ENCOUNTER → 2020-11-22 | Outpatient (CLI) | payer MEDICARE, OTHER | LOC: M ONCR 14:26 | PROVIDERS: ATTEND Radiology Radiation Oncology | DX: C43.31 Malignant melanoma of nose (principal); Z92.3 Personal history of irradiation ==

== ENCOUNTER → 2020-12-11 | Outpatient (CLI) | payer MEDICARE, OTHER ==
--- NOTE | 2020-12-11 13:02 | RADENCPD ---
Date/Time of Encounter Date of Encounter: Dec 11, 2020 Time of Encounter: 12:59 Encounter Bayron came in for a skin check today. Reports that all flaking and itching of the left nose has subsided. He and his are happy with the cosmetic results. He has pending AAA repair in [place] which is their primary health concern at this time. On exam there is only a punctate focus of residual hyperpigmented skin at 7:00 about the otherwise hypopigmented treatment/biopsy site. There is residual CTCAE grade 1 erythema over the treatment field. There is no tenderness, no mucosal reaction present in the left nare. His acute skin reaction is all but resolved and there has been resolution of the residual hyperpigmented lesion. Plan: Follow up in 3 months time. RASHI RIOS MD Dec 11, 2020 13:02
== END ==
LOC: M ONCR 11:04
PROVIDERS: ATTEND General Practice
DX: C43.31 Malignant melanoma of nose (principal); L57.9 Skin changes due to chronic exposure to nonionizing radiation, unspecified; Z92.3 Personal history of irradiation

== ENCOUNTER → 2021-01-04 | Outpatient (CLI) | payer MEDICARE, OTHER ==
[~2021-01-04] MED LIST changes: +BACT800T5 PO; +TRIA1OI TOP
--- NOTE | 2021-01-04 15:05 | RADENCPD ---
Date/Time of Encounter Date of Encounter: Jan 04, 2021 Time of Encounter: 15:00 Encounter Bayron came in today for concern of irritation/redness/tenderness of the left nasal side wall x 2 days as well as a right sided submandibular lump noted while he was shaving. He recently saw his medical oncologist @ [facility] CT neck/chest/abdomen/pelvis from 12/13/20 negative. On exam at the inferior aspect of the left nose there is a 1 cm area of erythema, there is an area which resembles a ruptured vesicle measuring 0.3 cm central to this area. There are no hyperpigmented lesions, the are is tender to touch. There is no drainage appreciated. The nare is patent without lesions. In the right cervical neck there is a 0.5 cm soft rubbery and mobile lesion c/w LN, it is minimally tender. He denies fevers/chills pain. Assessment/Plan: I believe he has a cutaneous infection of the left nose. Will treat with antibiotics, also will give a steroid cream for local inflammation The lesion of the left neck is consistent with a reactive LN, will observe. Will see back in office in 1 week. RAHSI RIOS MD Jan 04, 2021 15:05
== END ==
LOC: M ONCR 14:21
PROVIDERS: ATTEND General Practice
DX: C43.31 Malignant melanoma of nose (principal)

== ENCOUNTER → 2021-01-11 | Outpatient (CLI) | payer MEDICARE, OTHER ==
--- NOTE | 2021-01-11 16:30 | RADENCPD ---
Date/Time of Encounter Date of Encounter: Jan 11, 2021 Time of Encounter: 16:28 Encounter Bayron came in for a skin check today. The left nose is healing, a scant amount of bloody scab was removed from the small blister there. The node in the left cervical neck remains soft and mobile. I am happy with the resolution of the redness and superficial ulceration of the left nasal wall. I will see him back in 3 weeks for a final skin check and to monitor for resolution of the right neck node. RASHI RIOS MD Jan 11, 2021 16:30
== END ==
LOC: M ONCR 14:37
PROVIDERS: ATTEND General Practice
DX: C43.31 Malignant melanoma of nose (principal)
CPT/HCPCS: G0463 ×2

== ENCOUNTER → 2021-02-01 | Outpatient (CLI) | payer MEDICARE, OTHER ==
[~2021-02-01] MED LIST changes: +CLOB0.0512 TOP
--- NOTE | 2021-02-01 15:17 | RADENCPD ---
Date/Time of Encounter Date of Encounter: Feb 01, 2021 Time of Encounter: 15:12 Encounter Bayron came in for a brief follow up. His left nasal infection has completely resolved. On exam there is hypopigmentation in the treated area. No residual melanoma. No telangiectasias or chronic dermatitis. The right submental lesion, though to be a reactive LN, has all but resolved only a small soft remnant in the skin remains ~0.4 cm He is going for his COVID booster later today. Has no additional complaints. I will see him again in April 2021 for a formal follow up. RASHI RIOS MD Feb 01, 2021 15:17
== END ==
LOC: M ONCR 14:22
PROVIDERS: ATTEND General Practice
DX: C43.31 Malignant melanoma of nose (principal)

== ENCOUNTER → 2021-02-20 | Outpatient (REF) | payer MEDICARE, OTHER ==
[~2021-02-20] MED LIST changes: -CEFD1CAP8 PO; +CEFD300C41 PO
[2021-02-21 11:42] LABS: BASO # 0.1 10^3/uL (0.0-0.2); BASO % 1.3 % (0.0-1.0); EOS # 0.2 10^3/uL (0.0-0.5); EOS % 4.5 % (0.0-3.0); HEMATOCRIT 44.4 % (42.0-52.0); HEMOGLOBIN 13.9 g/dl (13.5-17.5); LYMPH # 1.1 10^3/uL (1.5-5.0); LYMPH % 21.2 % (24.0-44.0); MEAN CORPUSCULAR HEMOGLOBIN 29.4 pg (27.0-33.0); MEAN CORPUSCULAR HGB CONC 31.3 g/dl (32.0-36.5); MEAN CORPUSCULAR VOLUME 94.1 fl (80.0-96.0); MONO # 0.4 10^3/uL (0.0-0.8); MONO % 8.2 % (2.0-8.0); NEUTROPHILS # 3.4 10^3/uL (1.5-8.5); NEUTROPHILS % 63.7 % (36.0-66.0); PLATELET COUNT, AUTOMATED 157 10^3/uL (150-450); RED BLOOD COUNT 4.72 10^6/uL (4.30-6.10); WHITE BLOOD COUNT 5.4 10^3/uL (4.0-10.0)
[2021-02-21 12:26] LABS: ALBUMIN 3.5 GM/DL (3.2-5.2); BILIRUBIN,TOTAL 0.8 MG/DL (0.2-1.0); CALCIUM LEVEL 8.8 MG/DL (8.8-10.2); CHOLESTEROL RISK RATIO 4.823 (<5); CREATININE FOR GFR 1.61 MG/DL (0.70-1.30); GLOMERULAR FILTRATION RATE 43.5 (>35); POTASSIUM SERUM 4.6 MEQ/L (3.5-5.1); THYROID STIMULATING HORMONE 3.2 uIU/ML (0.358-3.740); TOTAL PROTEIN 6.9 GM/DL (6.4-8.2)
[2021-02-21 15:03] LABS: PTH INTACT 52.8 PG/ML (18.5-88.0)
[2021-02-21 15:04] LABS: FOLATE 23.5 NG/ML
== END ==
LOC: M SFHCPLAZ 12:01
PROVIDERS: ATTEND Internal Medicine
DX: N18.32 Chronic kidney disease, stage 3b (principal); E78.00 Pure hypercholesterolemia, unspecified; I87.303 Chronic venous hypertension (idiopathic) without complications of bilateral lower extremity; R41.89 Other symptoms and signs involving cognitive functions and awareness; Z85.820 Personal history of malignant melanoma of skin
CPT/HCPCS: 80053; 80061; 82607; 82746; 83970; 84443; 85025; G0463

== ENCOUNTER → 2021-04-08 | Outpatient (CLI) | payer MEDICARE, OTHER ==
[2021-04-08 18:23] LABS: ALBUMIN 3.5 GM/DL (3.2-5.2); ALT/SGPT 38 U/L (12-78); BILIRUBIN,TOTAL 0.8 MG/DL (0.2-1.0); BLOOD UREA NITROGEN 22 MG/DL (7-18); CALCIUM LEVEL 8.9 MG/DL (8.8-10.2); CARBON DIOXIDE LEVEL 30 MEQ/L (21-32); CHLORIDE LEVEL 106 MEQ/L (98-107); CREATININE FOR GFR 1.78 MG/DL (0.70-1.30); FOLATE > 24.0 NG/ML; GLOMERULAR FILTRATION RATE 38.8 (>35); GLUCOSE, FASTING 84 MG/DL (70-100); RHEUMATOID FACTOR QUANT < 10.0 IU/ML (<15.0); SODIUM LEVEL 144 MEQ/L (136-145); TOTAL 25(OH) VITAMIN D 47.2 NG/ML (30.0-100.0); TOTAL PROTEIN 6.7 GM/DL (6.4-8.2); VITAMIN B12 LEVEL 1364 PG/ML
[2021-04-08 18:47] LABS: BASO # 0.1 10^3/uL (0.0-0.2); BASO % 0.9 % (0.0-1.0); EOS # 0.2 10^3/uL (0.0-0.5); EOS % 3.2 % (0.0-3.0); HEMATOCRIT 45.6 % (42.0-52.0); HEMOGLOBIN 14.2 g/dl (13.5-17.5); LYMPH # 0.9 10^3/uL (1.5-5.0); MEAN CORPUSCULAR HGB CONC 31.1 g/dl (32.0-36.5); MEAN CORPUSCULAR VOLUME 96.4 fl (80.0-96.0); MONO # 0.6 10^3/uL (0.0-0.8); MONO % 10.3 % (2.0-8.0); NEUTROPHILS # 3.9 10^3/uL (1.5-8.5); NEUTROPHILS % 69.2 % (36.0-66.0); PLATELET COUNT, AUTOMATED 172 10^3/uL (150-450); RED BLOOD COUNT 4.73 10^6/uL (4.30-6.10); WHITE BLOOD COUNT 5.6 10^3/uL (4.0-10.0)
[2021-04-08 19:03] LABS: HEMOGLOBIN A1c 5.6 %
[2021-04-08 19:41] LABS: ERYTHROCYTE SEDIMENTATION RATE 17 mm/hr (0-20)
== END ==
LOC: M PLALAB 13:15
PROVIDERS: ATTEND Psychiatry & Neurology Neurology
DX: R41.841 Cognitive communication deficit (principal); Z79.899 Other long term (current) drug therapy

== ENCOUNTER → 2021-05-03 | Outpatient (CLI) | payer MEDICARE, OTHER ==
[~2021-05-03] MED LIST changes: +ISOVUE-370 76% 100ML VIAL As Ordered ONE
== END ==
LOC: M RAD 11:24
PROVIDERS: ATTEND Psychiatry & Neurology Neurology
DX: F04 Amnestic disorder due to known physiological condition (principal)
CPT/HCPCS: 70470; Q9967

== ENCOUNTER → 2021-05-08 | Outpatient (CLI) | payer MEDICARE, OTHER ==
[~2021-05-08] MED LIST changes: -ISOVUE-370 76% 100ML VIAL As Ordered ONE
== END ==
LOC: M ONCR 12:51
PROVIDERS: ATTEND General Practice
DX: C43.31 Malignant melanoma of nose (principal); Z79.82 Long term (current) use of aspirin; Z79.899 Other long term (current) drug therapy; Z85.118 Personal history of other malignant neoplasm of bronchus and lung; Z85.828 Personal history of other malignant neoplasm of skin; Z88.1 Allergy status to other antibiotic agents; Z92.3 Personal history of irradiation

== ENCOUNTER 2021-07-03 07:51 | Inpatient (IN) | payer MEDICARE, OTHER ==
[~2021-07-03] VITALS: Ht 172.7 cm; Wt 110.2 kg
[2021-07-03] MEDS: COMBIVENT RESPIMAT 100-20MCG INHALER 4GM INH SCH ×3 (08:11→08:44)
[2021-07-03 08:51] LABS: BASO % 0.4 % (0.0-1.0); EOS % 0.3 % (0.0-3.0); HEMATOCRIT 45.3 % (42.0-52.0); HEMOGLOBIN 14.6 g/dl (13.5-17.5); LYMPH # 0.5 10^3/uL (1.5-5.0); MEAN CORPUSCULAR HEMOGLOBIN 30.3 pg (27.0-33.0); MEAN CORPUSCULAR HGB CONC 32.2 g/dl (32.0-36.5); MONO # 0.4 10^3/uL (0.0-0.8); MONO % 3.9 % (2.0-8.0); NEUTROPHILS # 8.4 10^3/uL (1.5-8.5); NEUTROPHILS % 89.8 % (36.0-66.0); PLATELET COUNT, AUTOMATED 138 10^3/uL (150-450); RED BLOOD COUNT 4.82 10^6/uL (4.30-6.10); WHITE BLOOD COUNT 9.4 10^3/uL (4.0-10.0)
[2021-07-03 08:56] LABS: INR 1.18; PROTHROMBIN TIME 15.4 SECONDS (12.7-14.5)
[2021-07-03 08:57] LABS: PARTIAL THROMBOPLASTIN TIME 32.5 SECONDS (25.9-37.0)
[2021-07-03] MEDS ORDERED: LIDOCAINE 2% 5ML JELLY UROJET TOP ONE (09:05)
[2021-07-03] MEDS ORDERED: NS 500 ML IV ONE ×2 (09:15→13:20)
[2021-07-03 09:26] LABS: ALBUMIN 3.3 GM/DL (3.2-5.2); BILIRUBIN,TOTAL 1.2 MG/DL (0.2-1.0); C REACTIVE PROTEIN QUANTITATIV 2.66 MG/DL (0.00-0.30); CALCIUM LEVEL 9.4 MG/DL (8.8-10.2); CREATININE FOR GFR 1.98 MG/DL (0.70-1.30); GLOMERULAR FILTRATION RATE 34.3 (>35); MAGNESIUM LEVEL 2.5 MG/DL (1.8-2.4); POTASSIUM SERUM 4.2 MEQ/L (3.5-5.1)
[2021-07-03] MEDS ORDERED: cefTRIAXone SOD 2 GM in D5W MINI-BAG PLUS 50 ML IV ONE (09:30)
[2021-07-03] MEDS ORDERED: ACETAMINOPHEN 325 MG TAB PO ONE (09:35)
[2021-07-03] MEDS ORDERED: CYAN100050 PO (10:51)
[2021-07-03] MEDS ORDERED: DONE10TA90 PO (10:51)
[2021-07-03] MEDS ORDERED: MIRA3350 PO (10:51)
[2021-07-03] MEDS ORDERED: HOME MED LIST COMPLETE! XX SCH (10:55)
[2021-07-03] MEDS ORDERED: ACETAMINOPHEN TAB 650MG DOSE (2X325MG) PO PRN (13:10)
[2021-07-03] MEDS ORDERED: MAALOX 30 ML SUSP *UDC PO PRN (13:10)
[2021-07-03] MEDS ORDERED: FLUTICASONE PROP 0.05% NASAL SPRAY 16 GM (FLONASE) NARES PRN (13:10)
[2021-07-03] MEDS ORDERED: MIRALAX *UNIT DOSE* 17GM PACKET PO PRN (13:10)
[2021-07-03] MEDS: IPRATROPIUM 0.5MG/ALBUTEROL 2.5MG INH SOL UD 3ML (DUONEB) NEB SCH ×2 (13:52→20:10)
[2021-07-03] MEDS: FUROSEMIDE 40 MG TAB PO SCH (14:07)
[2021-07-03] MEDS ORDERED: NS 1,000 ML IV ONE (16:10)
[2021-07-03] MEDS: DONEPEZIL 5 MG TAB PO SCH (17:23)
[2021-07-03 18:11] VITALS: BP 111/61
[2021-07-03 18:38] LABS: CK-MB VALUE MASS 1.2 NG/ML (<3.6); MB/CK RELATIVE INDEX 2.22 (< OR =4)
[2021-07-03] MEDS: ASPIRIN 81MG ENTERIC TABLET PO SCH (20:29)
[2021-07-03] MEDS: ATORVASTATIN 20 MG TAB PO SCH (20:30)
[2021-07-03] MEDS: DOCUSATE SODIUM 100MG CAPSULE PO SCH (20:30)
[2021-07-03] MEDS: CALCITRIOL 0.25 MCG CAP (S0169) PO SCH (20:31)
[2021-07-03] MEDS: APIXABAN 2.5 MG TAB (ELIQUIS) PO SCH (20:31)
[2021-07-04] MEDS: IPRATROPIUM 0.5MG/ALBUTEROL 2.5MG INH SOL UD 3ML (DUONEB) NEB SCH ×4 (01:12→19:33)
[2021-07-04 06:12] VITALS: BP 120/78
[2021-07-04 08:27] LABS: BASO % 0.1 % (0.0-1.0); HEMOGLOBIN 13.2 g/dl (13.5-17.5); LYMPH # 0.4 10^3/uL (1.5-5.0); LYMPH % 3.6 % (24.0-44.0); MEAN CORPUSCULAR HEMOGLOBIN 29.9 pg (27.0-33.0); MEAN CORPUSCULAR HGB CONC 31.4 g/dl (32.0-36.5); MONO # 0.5 10^3/uL (0.0-0.8); MONO % 5.3 % (2.0-8.0); NEUTROPHILS # 9.3 10^3/uL (1.5-8.5); NEUTROPHILS % 90.3 % (36.0-66.0); PLATELET COUNT, AUTOMATED 140 10^3/uL (150-450); RED BLOOD COUNT 4.42 10^6/uL (4.30-6.10); WHITE BLOOD COUNT 10.3 10^3/uL (4.0-10.0)
[2021-07-04 08:58] LABS: CK-MB VALUE MASS 3.8 NG/ML (<3.6); MB/CK RELATIVE INDEX 3.96 (< OR =4)
[2021-07-04 09:04] LABS: BILIRUBIN,TOTAL 0.4 MG/DL (0.2-1.0); CALCIUM LEVEL 9.4 MG/DL (8.8-10.2); CREATININE FOR GFR 2.18 MG/DL (0.70-1.30); GLOMERULAR FILTRATION RATE 30.7 (>35); MAGNESIUM LEVEL 2.5 MG/DL (1.8-2.4); POTASSIUM SERUM 4.4 MEQ/L (3.5-5.1); TOTAL PROTEIN 6.5 GM/DL (6.4-8.2)
[2021-07-04] MEDS ORDERED: PIPERACILLIN/TAZOBACTAM SOD 4.5 GM in D5W MINI-BAG PLUS 50 ML IV SCH (09:20)
[2021-07-04] MEDS: LORATADINE 10 MG TAB PO SCH (09:56)
[2021-07-04] MEDS: FUROSEMIDE 40 MG TAB PO SCH (09:56)
[2021-07-04] MEDS: PANTOPRAZOLE 40MG TAB (PROTONIX) PO SCH (09:56)
[2021-07-04] MEDS: DONEPEZIL 5 MG TAB PO SCH (09:56)
[2021-07-04] MEDS: APIXABAN 2.5 MG TAB (ELIQUIS) PO SCH ×2 (09:56→20:43)
[2021-07-04] MEDS: DOCUSATE SODIUM 100MG CAPSULE PO SCH ×2 (09:56→20:42)
[2021-07-04] MEDS: PIPERACILLIN/TAZOBACTAM SOD 3.375 GM in D5W MINI-BAG PLUS 50 ML IV SCH ×3 (09:57→21:01)
[2021-07-04 10:01] VITALS: BP 118/50
[2021-07-04] MEDS ORDERED: metroNIDAZOLE 500 MG in IV 1 EA IV SCH (11:00)
[2021-07-04 11:35] VITALS: BP 112/62
[2021-07-04] MEDS: FUROSEMIDE 40MG/4ML VIAL (J1940) IV SCH ×2 (12:03→18:53)
[2021-07-04 14:00] VITALS: BP 108/78
[2021-07-04 18:50] VITALS: BP 111/51
[2021-07-04] MEDS: CALCITRIOL 0.25 MCG CAP (S0169) PO SCH (20:41)
[2021-07-04] MEDS: ATORVASTATIN 20 MG TAB PO SCH (20:42)
[2021-07-04] MEDS: ASPIRIN 81MG ENTERIC TABLET PO SCH (20:43)
[2021-07-04 22:00] VITALS: BP 110/50
[2021-07-05] MEDS: IPRATROPIUM 0.5MG/ALBUTEROL 2.5MG INH SOL UD 3ML (DUONEB) NEB SCH ×4 (02:00→20:15)
[2021-07-05] MEDS: FUROSEMIDE 40MG/4ML VIAL (J1940) IV SCH ×3 (03:14→19:43)
[2021-07-05 03:15] VITALS: BP 129/72
[2021-07-05] MEDS: PIPERACILLIN/TAZOBACTAM SOD 3.375 GM in D5W MINI-BAG PLUS 50 ML IV SCH ×4 (03:15→22:33)
[2021-07-05 06:00] VITALS: BP 139/80
[2021-07-05 09:16] LABS: BASO % 0.2 % (0.0-1.0); EOS # 0.1 10^3/uL (0.0-0.5); EOS % 1.1 % (0.0-3.0); HEMOGLOBIN 14.6 g/dl (13.5-17.5); LYMPH # 0.6 10^3/uL (1.5-5.0); LYMPH % 7.9 % (24.0-44.0); MEAN CORPUSCULAR HEMOGLOBIN 30.3 pg (27.0-33.0); MEAN CORPUSCULAR HGB CONC 31.7 g/dl (32.0-36.5); MEAN CORPUSCULAR VOLUME 95.4 fl (80.0-96.0); MONO # 0.5 10^3/uL (0.0-0.8); MONO % 5.9 % (2.0-8.0); NEUTROPHILS # 6.9 10^3/uL (1.5-8.5); NEUTROPHILS % 84.5 % (36.0-66.0); PLATELET COUNT, AUTOMATED 155 10^3/uL (150-450); RED BLOOD COUNT 4.82 10^6/uL (4.30-6.10); WHITE BLOOD COUNT 8.2 10^3/uL (4.0-10.0)
[2021-07-05 09:54] LABS: ALBUMIN 3.4 GM/DL (3.2-5.2); BILIRUBIN,TOTAL 0.6 MG/DL (0.2-1.0); CALCIUM LEVEL 9.3 MG/DL (8.8-10.2); CREATININE FOR GFR 2.19 MG/DL (0.70-1.30); GLOMERULAR FILTRATION RATE 30.5 (>35); MAGNESIUM LEVEL 2.3 MG/DL (1.8-2.4); POTASSIUM SERUM 3.6 MEQ/L (3.5-5.1); TOTAL PROTEIN 7.3 GM/DL (6.4-8.2)
[2021-07-05] MEDS: APIXABAN 2.5 MG TAB (ELIQUIS) PO SCH ×2 (10:25→20:34)
[2021-07-05] MEDS: PANTOPRAZOLE 40MG TAB (PROTONIX) PO SCH (10:25)
[2021-07-05] MEDS: LORATADINE 10 MG TAB PO SCH (10:25)
[2021-07-05] MEDS: DONEPEZIL 5 MG TAB PO SCH (10:25)
[2021-07-05] MEDS: DOCUSATE SODIUM 100MG CAPSULE PO SCH ×2 (10:25→20:34)
[2021-07-05 14:00] VITALS: BP 110/62
[2021-07-05 20:04] LABS: CK-MB VALUE MASS 3.6 NG/ML (<3.6)
[2021-07-05] MEDS: ATORVASTATIN 20 MG TAB PO SCH (20:34)
[2021-07-05] MEDS: ASPIRIN 81MG ENTERIC TABLET PO SCH (20:34)
[2021-07-05] MEDS: CALCITRIOL 0.25 MCG CAP (S0169) PO SCH (20:34)
[2021-07-05 21:45] VITALS: BP 118/60
[2021-07-06] MEDS: IPRATROPIUM 0.5MG/ALBUTEROL 2.5MG INH SOL UD 3ML (DUONEB) NEB SCH ×4 (01:40→20:37)
[2021-07-06] MEDS: FUROSEMIDE 40MG/4ML VIAL (J1940) IV SCH (02:58)
[2021-07-06] MEDS: PIPERACILLIN/TAZOBACTAM SOD 3.375 GM in D5W MINI-BAG PLUS 50 ML IV SCH ×4 (04:04→21:19)
[2021-07-06 05:34] VITALS: BP 121/71
[2021-07-06 06:10] LABS: BASO % 0.6 % (0.0-1.0); EOS # 0.3 10^3/uL (0.0-0.5); EOS % 3.6 % (0.0-3.0); HEMATOCRIT 40.5 % (42.0-52.0); LYMPH # 0.8 10^3/uL (1.5-5.0); LYMPH % 11.6 % (24.0-44.0); MEAN CORPUSCULAR HEMOGLOBIN 30.2 pg (27.0-33.0); MEAN CORPUSCULAR HGB CONC 32.1 g/dl (32.0-36.5); MONO # 0.7 10^3/uL (0.0-0.8); MONO % 10.4 % (2.0-8.0); NEUTROPHILS # 5.1 10^3/uL (1.5-8.5); NEUTROPHILS % 73.5 % (36.0-66.0); PLATELET COUNT, AUTOMATED 149 10^3/uL (150-450); RED BLOOD COUNT 4.31 10^6/uL (4.30-6.10)
[2021-07-06 06:34] LABS: BILIRUBIN,TOTAL 0.8 MG/DL (0.2-1.0); CALCIUM LEVEL 8.7 MG/DL (8.8-10.2); CK-MB VALUE MASS 2.6 NG/ML (<3.6); CREATININE FOR GFR 2.15 MG/DL (0.70-1.30); GLOMERULAR FILTRATION RATE 31.2 (>35); MB/CK RELATIVE INDEX 3.13 (< OR =4); POTASSIUM SERUM 3.3 MEQ/L (3.5-5.1); TOTAL PROTEIN 6.2 GM/DL (6.4-8.2)
[2021-07-06] MEDS: LORATADINE 10 MG TAB PO SCH (09:20)
[2021-07-06] MEDS: DONEPEZIL 5 MG TAB PO SCH (09:21)
[2021-07-06] MEDS: DOCUSATE SODIUM 100MG CAPSULE PO SCH ×2 (09:21→20:01)
[2021-07-06] MEDS: PANTOPRAZOLE 40MG TAB (PROTONIX) PO SCH (09:21)
[2021-07-06] MEDS: APIXABAN 2.5 MG TAB (ELIQUIS) PO SCH ×2 (09:21→20:01)
[2021-07-06 14:00] VITALS: BP 115/71
[2021-07-06] MEDS: CALCITRIOL 0.25 MCG CAP (S0169) PO SCH (20:01)
[2021-07-06] MEDS: ATORVASTATIN 20 MG TAB PO SCH (20:01)
[2021-07-06] MEDS: ASPIRIN 81MG ENTERIC TABLET PO SCH (20:02)
[2021-07-06 20:57] VITALS: BP 118/72
[2021-07-07] MEDS: IPRATROPIUM 0.5MG/ALBUTEROL 2.5MG INH SOL UD 3ML (DUONEB) NEB SCH ×2 (00:56→07:09)
[2021-07-07] MEDS: PIPERACILLIN/TAZOBACTAM SOD 3.375 GM in D5W MINI-BAG PLUS 50 ML IV SCH ×2 (04:12→09:12)
[2021-07-07 06:09] VITALS: BP 136/71
[2021-07-07 06:49] LABS: BASO # 0.1 10^3/uL (0.0-0.2); BASO % 0.7 % (0.0-1.0); EOS # 0.3 10^3/uL (0.0-0.5); EOS % 3.9 % (0.0-3.0); HEMATOCRIT 40.2 % (42.0-52.0); HEMOGLOBIN 14.1 g/dl (13.5-17.5); LYMPH # 0.9 10^3/uL (1.5-5.0); MEAN CORPUSCULAR HEMOGLOBIN 32.9 pg (27.0-33.0); MEAN CORPUSCULAR HGB CONC 35.1 g/dl (32.0-36.5); MEAN CORPUSCULAR VOLUME 93.9 fl (80.0-96.0); MONO # 0.7 10^3/uL (0.0-0.8); MONO % 10.5 % (2.0-8.0); NEUTROPHILS # 4.9 10^3/uL (1.5-8.5); NEUTROPHILS % 71.5 % (36.0-66.0); PLATELET COUNT, AUTOMATED 161 10^3/uL (150-450); RED BLOOD COUNT 4.28 10^6/uL (4.30-6.10); WHITE BLOOD COUNT 6.8 10^3/uL (4.0-10.0)
[2021-07-07 07:08] LABS: ALBUMIN 2.9 GM/DL (3.2-5.2); BILIRUBIN,TOTAL 0.7 MG/DL (0.2-1.0); CALCIUM LEVEL 8.9 MG/DL (8.8-10.2); CREATININE FOR GFR 1.88 MG/DL (0.70-1.30); GLOMERULAR FILTRATION RATE 36.4 (>35); MAGNESIUM LEVEL 2.1 MG/DL (1.8-2.4); POTASSIUM SERUM 3.5 MEQ/L (3.5-5.1)
[2021-07-07] MEDS: DOCUSATE SODIUM 100MG CAPSULE PO SCH (09:00)
[2021-07-07] MEDS: APIXABAN 2.5 MG TAB (ELIQUIS) PO SCH (09:12)
[2021-07-07] MEDS: DONEPEZIL 5 MG TAB PO SCH (09:12)
[2021-07-07] MEDS: PANTOPRAZOLE 40MG TAB (PROTONIX) PO SCH (09:12)
[2021-07-07] MEDS: LORATADINE 10 MG TAB PO SCH (09:12)
[2021-07-07] MEDS ORDERED: MUCI600T31 PO (12:06)
[2021-07-07] MEDS ORDERED: AMOX875T2 PO (12:06)
[2021-07-07] MEDS ORDERED: PROAAER10 INH (12:25)
[2021-07-07] MEDS ORDERED: ALBU83IN NEB (12:25)
[2021-07-07] MEDS ORDERED: FUROSEMIDE 40 MG TAB PO ONE (13:00)
[2021-07-09 13:12] LABS: BODY FLUID CULTURE Not indicated. (.); LEGIONELLA ANTIGEN URINE Negative (Negative); ORGANISM ID Not indicated. (.); SPECIMEN SOURCE Urine (.); URINE STREP PNEUMONIAE ANTIGEN Negative (Negative)
== END 2021-07-07 13:43 | disposition home health service (06) | DRG 866 ==
LOC: EDBD 07:51 → M ED 07:51 → EEVIPCON 13:10 → M ED INP 13:10 → ENRESERV 14:20 → UNDODISIN 14:40 → M MSPAV 17:40
PROVIDERS: ADMIT Family Medicine; ATTEND Family Medicine
DX: B34.8 Other viral infections of unspecified site (principal); I50.32 Chronic diastolic (congestive) heart failure; C78.00 Secondary malignant neoplasm of unspecified lung; N17.9 Acute kidney failure, unspecified; J98.8 Other specified respiratory disorders; I25.10 Atherosclerotic heart disease of native coronary artery without angina pectoris; I48.91 Unspecified atrial fibrillation; I73.9 Peripheral vascular disease, unspecified; F03.90 Unspecified dementia, unspecified severity, without behavioral disturbance, psychotic disturbance, mood disturbance, and anxiety; Z95.0 Presence of cardiac pacemaker; C44.90 Unspecified malignant neoplasm of skin, unspecified; N18.9 Chronic kidney disease, unspecified; K21.9 Gastro-esophageal reflux disease without esophagitis; E78.5 Hyperlipidemia, unspecified; Z86.73 Personal history of transient ischemic attack (TIA), and cerebral infarction without residual deficits; Z98.41 Cataract extraction status, right eye; Z98.42 Cataract extraction status, left eye; E66.9 Obesity, unspecified; Z68.36 Body mass index [BMI] 36.0-36.9, adult; Z66 Do not resuscitate; Z20.822 Contact with and (suspected) exposure to COVID-19; Z79.01 Long term (current) use of anticoagulants; Z79.82 Long term (current) use of aspirin; Z79.899 Other long term (current) drug therapy; Z88.1 Allergy status to other antibiotic agents; Z88.8 Allergy status to other drugs, medicaments and biological substances; Z95.5 Presence of coronary angioplasty implant and graft; R29.810 Facial weakness; R09.02 Hypoxemia; B34.1 Enterovirus infection, unspecified

== ENCOUNTER → 2021-08-19 | Outpatient (CLI) | payer MEDICARE, OTHER ==
[~2021-08-19] MED LIST changes: +ALBU2.5V10 NEB; +AMOX875T2 PO; +CYAN100050 PO; +DONE10TA90 PO; +MIRA3350 PO; +MUCI600T31 PO; +PROAAER10 INH
[2021-08-19 17:42] LABS: ALBUMIN 3.4 GM/DL (3.2-5.2); CALCIUM LEVEL 9.2 MG/DL (8.8-10.2); CREATININE FOR GFR 1.86 MG/DL (0.70-1.30); GLOMERULAR FILTRATION RATE 36.9 (>35); PHOSPHORUS LEVEL 3.1 MG/DL (2.5-4.9)
== END ==
LOC: M PLALAB 14:31
PROVIDERS: ATTEND Internal Medicine Cardiovascular Disease
DX: I50.32 Chronic diastolic (congestive) heart failure (principal)

== ENCOUNTER → 2021-10-22 | Outpatient (REF) | payer MEDICARE, OTHER | LOC: M SFHCPLAZ 17:25 | PROVIDERS: ATTEND Internal Medicine Hematology | DX: K59.1 Functional diarrhea (principal) ==

== ENCOUNTER → 2021-11-25 | Outpatient (REF) | payer MEDICARE, OTHER ==
[2021-11-25 12:06] LABS: BASO # 0.1 10^3/uL (0.0-0.2); BASO % 0.9 % (0.0-1.0); EOS # 0.2 10^3/uL (0.0-0.5); EOS % 2.7 % (0.0-3.0); HEMATOCRIT 41.6 % (42.0-52.0); HEMOGLOBIN 12.9 g/dl (13.5-17.5); LYMPH # 0.7 10^3/uL (1.5-5.0); LYMPH % 12.6 % (24.0-44.0); MEAN CORPUSCULAR HEMOGLOBIN 30.2 pg (27.0-33.0); MEAN CORPUSCULAR VOLUME 97.4 fl (80.0-96.0); MONO # 0.5 10^3/uL (0.0-0.8); MONO % 8.9 % (2.0-8.0); NEUTROPHILS # 4.1 10^3/uL (1.5-8.5); NEUTROPHILS % 74.7 % (36.0-66.0); PLATELET COUNT, AUTOMATED 164 10^3/uL (150-450); RED BLOOD COUNT 4.27 10^6/uL (4.30-6.10); WHITE BLOOD COUNT 5.5 10^3/uL (4.0-10.0)
[2021-11-25 12:46] LABS: ALBUMIN 3.1 GM/DL (3.2-5.2); BILIRUBIN,TOTAL 0.6 MG/DL (0.2-1.0); CALCIUM LEVEL 9.1 MG/DL (8.8-10.2); CREATININE FOR GFR 1.65 MG/DL (0.70-1.30); GLOMERULAR FILTRATION RATE 42.2 (>35); POTASSIUM SERUM 3.8 MEQ/L (3.5-5.1); TOTAL PROTEIN 6.7 GM/DL (6.4-8.2)
== END ==
LOC: M LABDRAWC 11:09
PROVIDERS: ATTEND Internal Medicine Cardiovascular Disease
DX: I11.0 Hypertensive heart disease with heart failure (principal); I27.81 Cor pulmonale (chronic); I50.32 Chronic diastolic (congestive) heart failure

== ENCOUNTER → 2022-01-22 | Outpatient (REF) | payer MEDICARE, OTHER ==
[~2022-01-22] MED LIST changes: +CLOP75TA99 PO; -DOXY-350 PO; +DOXY-444 PO; -PLAV1TAB2 PO
== END ==
LOC: M SFHCPLAZ 16:57
PROVIDERS: ATTEND Internal Medicine Hematology
DX: I69.90 Unspecified sequelae of unspecified cerebrovascular disease (principal)

== ENCOUNTER → 2022-02-05 | Outpatient (REF) | payer MEDICARE, OTHER ==
[2022-02-05 18:36] LABS: ALBUMIN 3.1 G/DL (3.2-5.2); CALCIUM LEVEL 9.6 MG/DL (8.3-10.6); CREATININE FOR GFR 1.94 MG/DL (0.70-1.30); PHOSPHORUS LEVEL 3.3 MG/DL (2.4-5.1); POTASSIUM SERUM 4.1 MMOL/L (3.5-5.1)
== END ==
LOC: M SFHCPLAZ 13:41
PROVIDERS: ATTEND Internal Medicine Hematology
DX: N18.32 Chronic kidney disease, stage 3b (principal)

== ENCOUNTER → 2022-02-05 | Outpatient (REF) | payer MEDICARE, OTHER ==
[~2022-02-05] MED LIST changes: +CLOB-24; +MEMA10TA19; +OLAN1TAB16
[2022-02-05 18:16] LABS: BASO % 0.5 % (0.0-1.0); EOS # 0.1 10^3/uL (0.0-0.5); EOS % 1.3 % (0.0-3.0); HEMATOCRIT 45.3 % (42.0-52.0); HEMOGLOBIN 13.9 g/dl (13.5-17.5); LYMPH # 0.8 10^3/uL (1.5-5.0); LYMPH % 10.5 % (24.0-44.0); MEAN CORPUSCULAR HEMOGLOBIN 29.6 pg (27.0-33.0); MEAN CORPUSCULAR HGB CONC 30.7 g/dl (32.0-36.5); MEAN CORPUSCULAR VOLUME 96.6 fl (80.0-96.0); MONO # 0.6 10^3/uL (0.0-0.8); MONO % 8.2 % (2.0-8.0); NEUTROPHILS # 5.9 10^3/uL (1.5-8.5); NEUTROPHILS % 79.1 % (36.0-66.0); PLATELET COUNT, AUTOMATED 155 10^3/uL (150-450); RED BLOOD COUNT 4.69 10^6/uL (4.30-6.10); WHITE BLOOD COUNT 7.4 10^3/uL (4.0-10.0)
[2022-02-05 18:38] LABS: ALBUMIN 3.1 G/DL (3.2-5.2); BILIRUBIN,TOTAL 0.8 MG/DL (0.3-1.2); CALCIUM LEVEL 9.7 MG/DL (8.3-10.6); CREATININE FOR GFR 1.93 MG/DL (0.70-1.30); GLOMERULAR FILTRATION RATE 35.2 (>35); POTASSIUM SERUM 4.2 MMOL/L (3.5-5.1); TOTAL PROTEIN 6.8 G/DL (5.7-8.2)
== END ==
LOC: M LABDRAWC 16:55
PROVIDERS: ATTEND Internal Medicine Cardiovascular Disease
DX: I11.0 Hypertensive heart disease with heart failure (principal); I27.81 Cor pulmonale (chronic); I25.10 Atherosclerotic heart disease of native coronary artery without angina pectoris; I50.32 Chronic diastolic (congestive) heart failure

== ENCOUNTER 2022-02-20 11:49 | Emergency (ER) | payer MEDICARE, OTHER ==
[~2022-02-20] VITALS: Ht 175.3 cm; Wt 93.6 kg
[~2022-02-20 11:49] MED LIST changes: -CLOB-24; -MEMA10TA19; -OLAN1TAB16
[2022-02-20 12:48] LABS: BASO % 0.3 % (0.0-1.0); EOS # 0.1 10^3/uL (0.0-0.5); EOS % 0.8 % (0.0-3.0); HEMATOCRIT 40.4 % (42.0-52.0); HEMOGLOBIN 12.5 g/dl (13.5-17.5); LYMPH # 0.7 10^3/uL (1.5-5.0); LYMPH % 6.2 % (24.0-44.0); MEAN CORPUSCULAR HEMOGLOBIN 29.7 pg (27.0-33.0); MEAN CORPUSCULAR HGB CONC 30.9 g/dl (32.0-36.5); MONO # 0.8 10^3/uL (0.0-0.8); MONO % 7.5 % (2.0-8.0); NEUTROPHILS # 9.1 10^3/uL (1.5-8.5); NEUTROPHILS % 84.8 % (36.0-66.0); PLATELET COUNT, AUTOMATED 134 10^3/uL (150-450); RED BLOOD COUNT 4.21 10^6/uL (4.30-6.10); WHITE BLOOD COUNT 10.7 10^3/uL (4.0-10.0)
[2022-02-20 13:13] LABS: CK-MB VALUE MASS < 1.0 NG/ML (<3.6)
[2022-02-20 13:15] LABS: ALBUMIN 2.9 G/DL (3.2-5.2); ALKALINE PHOSPHATASE 152 U/L (46-116); ALT/SGPT 20 U/L (7.0-40); AST/SGOT 18 U/L (<34); BILIRUBIN,DIRECT 0.3 MG/DL (<0.4); BILIRUBIN,TOTAL 0.8 MG/DL (0.3-1.2); BLOOD UREA NITROGEN 24 MG/DL (9-23); CALCIUM LEVEL 9.2 MG/DL (8.3-10.6); CARBON DIOXIDE LEVEL 33 MMOL/L (20-31); CHLORIDE LEVEL 107 MMOL/L (98-107); CPK CREATINE PHOSPHOKINASE 26 U/L (46-171); CREATININE FOR GFR 1.78 MG/DL (0.70-1.30); GLOMERULAR FILTRATION RATE 38.7 (>35); GLUCOSE, FASTING 101 MG/DL (74-106); MB/CK RELATIVE INDEX 3.84 (< OR =4); POTASSIUM SERUM 4.1 MMOL/L (3.5-5.1); SODIUM LEVEL 144 MMOL/L (136-145); TOTAL PROTEIN 6.1 G/DL (5.7-8.2)
[2022-02-20 13:17] LABS: THYROID STIMULATING HORMONE 2.036 uIU/ML (0.55-4.78)
[2022-02-20 14:17] LABS: CK-MB VALUE MASS < 1.0 NG/ML (<3.6)
[2022-02-20 14:18] LABS: CPK CREATINE PHOSPHOKINASE 25 U/L (46-171)
[2022-02-20] MEDS ORDERED: OLAN1TAB16 (14:39)
[2022-02-20] MEDS ORDERED: CLOB-24 (14:39)
[2022-02-20] MEDS ORDERED: MEMA10TA19 (14:39)
[2022-02-20 15:45] VITALS: BP 116/60
[2022-02-20 15:46] LABS: RSV AMPLIFICATION NEGATIVE (NEGATIVE)
== END 2022-02-20 15:59 | disposition home or self-care (01) ==
LOC: M ED 11:49 → EDBD 11:49 → M ED 15:59
DX: F03.90 Unspecified dementia, unspecified severity, without behavioral disturbance, psychotic disturbance, mood disturbance, and anxiety (principal); U07.1 COVID-19; I50.9 Heart failure, unspecified; I10 Essential (primary) hypertension; K21.9 Gastro-esophageal reflux disease without esophagitis; N18.30 Chronic kidney disease, stage 3 unspecified; Z86.73 Personal history of transient ischemic attack (TIA), and cerebral infarction without residual deficits; Z95.1 Presence of aortocoronary bypass graft; Z95.0 Presence of cardiac pacemaker; Z95.828 Presence of other vascular implants and grafts; Z85.828 Personal history of other malignant neoplasm of skin; Z79.82 Long term (current) use of aspirin; Z79.01 Long term (current) use of anticoagulants; Z79.899 Other long term (current) drug therapy; Z88.1 Allergy status to other antibiotic agents; Z88.8 Allergy status to other drugs, medicaments and biological substances

== ENCOUNTER → 2022-12-19 | Outpatient (REF) | payer MEDICARE, OTHER ==
[~2022-12-19] MED LIST changes: -CEFD300C41 PO; +CEFD300C42 PO; +CLOB-24; +CYAN-1 PO; -CYAN100050 PO; +FLUT50SP17 NARES; -FLUTISP NARES; +MEMA10TA19; +OLAN1TAB16
== END ==
LOC: M SFHCDERM 17:53
PROVIDERS: ATTEND Dermatology
DX: D23.61 Other benign neoplasm of skin of right upper limb, including shoulder (principal); C44.602 Unspecified malignant neoplasm of skin of right upper limb, including shoulder